=== PATIENT | female | born 1950 | race Caucasian/White ===

== ENCOUNTER 2021-06-18 12:57 | Outpatient (CLI) | payer MEDICARE, SELFPAY | END 2021-06-18 12:58 | disposition home or self-care (01) | LOC: ANHAUDIO 13:00 | PROVIDERS: PCP Internal Medicine; Visit Provider Otolaryngology | DX: H90.3 Sensorineural hearing loss, bilateral (principal) | CPT/HCPCS: 92557; 92567 ==

== ENCOUNTER 2024-06-16 10:59 | Emergency (ER) | payer MEDICARE, SELFPAY ==
[2024-06-16] VITALS (31 sets, daily range): BP systolic 115–135; BP diastolic 55–71; PULSE 68–84; RESP 12–26; TEMP 36.5; O2SAT 92–100
--- NOTE | ~2024-06-16 | XR_ITS ---
CHEST RADIOGRAPH, PA AND LATERAL CLINICAL HISTORY: ANTERIOR CP, HX OF COPD, QUIT SMOKING 2010 . COMPARISON: None available TECHNIQUE: PA and lateral views of the chest. FINDINGS The cardiomediastinal silhouette is unremarkable. The lungs are clear. Visualized osseous structures and soft tissues are unremarkable. IMPRESSION: No focal infiltrate or effusion. Reviewed, dictated and finalized at location A.
--- NOTE | 2024-06-16 11:00 | ECG_ITS ---
Test Date: 2024-06-16 11:07:20 Measurements Intervals [place] Rate: 78 P: 61 NM: 159 QRS: 93 QRSD: 82 T: 72 QT: 374 QTc: 429 Interpretive Statements SINUS RHYTHM BORDERLINE RIGHT AXIS DEVIATION [QRS AXIS > 90] NONSPECIFIC ST AND T WAVE ABNORMALITY No previous ECG available for comparison Electronically Signed On 06-16-2024 13:52:41 CDT by Robin Cedeno M.D.
[2024-06-16] MEDS: ASPIRIN 81 MG CHEWABLE TABLET 324 MG PO (11:41)
[2024-06-16 11:48] LABS: Basophils Absolute Auto 0.1 K/mm3 (0.0-0.1); Basophils Percent Auto 0.7 % (0.2-1.2); Eosinophils Absolute Auto 0.4 K/mm3 (0-0.3); Hematocrit 38.5 % (37.0-47.0); Hemoglobin 12.9 g/dL (12.0-15.0); Immature Granulocyte Absolute 0.02 K/mm3 (0.00-0.031); Immature Granulocyte Percent A 0.3 % (0-0.5); Lymphocytes Percent Auto 17.7 % (18.3-44.2); Mean Corpuscular HGB Conc 33.5 g/dl (32-36); Mean Corpuscular Hemoglobin 30.9 pg (26-34); Mean Corpuscular Volume 92.3 fl (80-100); Mean Platelet Volume 9.3 fl (7.4-10.4); Monocytes Absolute Auto 0.3 K/mm3 (0.1-0.6); Monocytes Percent Auto 4.6 % (2.6-8.5); Neutrophils Absolute Auto 5.3 K/mm3 (1.3-6.7); Neutrophils Percent Auto 71.7 % (45.5-73.1); Platelet Count Result 301 k/mm3 (150-375); Red Blood Count 4.17 M/mm3 (4.2-5.4); Red Cell Distribution Width 13.1 % (11.5-14.5); White Blood Count 7.3 K/mm3 (4.5-10.0)
[2024-06-16 12:10] LABS: INR 0.9
[2024-06-16 12:11] LABS: Partial Thromboplastin Time 26.3 Seconds (22.3-36.8)
--- OUTSIDE RECORDS SUMMARY | 2024-06-16 12:36 | XMS_ITS | Encounter Summary ---
Author Organization [facility] Address [address] [place] [id number] Care Team Providers Care Director Workers Compensation Name Role Phone Bekah West [facility] Primary Care Provid er Encounter Details Date Type Department Care Team (Latest Contact Info) Description 06/10/2024 Scan [facility] Scanned, Doc Med Group Social History Tobacco Use Types Packs/Day Years Used Date Smoking Tobacco: Former Cigarettes 1 40 [id number] Smokeless Tobacco: Never Comments:na Alcohol Use Standard Drinks/Week Comments Never 0 (1 standard drink = 0.6 oz pur e alcohol) B1300 Health Literacy Answer Date Recor ded How often do you need to hav e someone help you when you read instructions, pamphlets, or other written material from your doctor or pharmacy? Never 05/26/2024 [facility] Utilities Answer Date Recorded In the past 12 months has [facility] [employer], gas, oil, or water [place] threatened to shut off services in your home? No 05/26/2024 Humiliation, Afraid, Rape, and Kick questionnair e Answer Date Recorded Within the last year, have y ou been afraid of your partner or ex-partner? No 05/26/2024 Within the last year, have y ou been humiliated or emotionally abused in other ways by your partner or ex-partner? No Within the last year, have y ou been kicked, hit, slapped, or otherwise physically hurt by your partner or ex-partner? No 05/26/2024 Within the last year, have y ou been raped or forced to have any kind of sexual activity by your partner or ex-partner? No 05/26/2024 Social Connection and Isolation Panel [NHANES] A nswer Date Recorded In a typical week, how many times do you talk on the phone with family, friends, or neighbors? Once a week 05/26/19 How often do you get togethe r with friends or relatives? Once a week 05/26/2024 How often do you attend chur or worship services? 1 to 4 times per year 05/26/2024 Do you belong to any clubs o r organizations such as mandaeism groups, unions, fraternal or athletic groups, or school groups? No 05/26/2024 How often do you attend meet ings of the clubs or organizations you belong to? 1 to 4 times per year 05/26/2024 Are you , , di vorced, , never , or living with a partner? Patient declined 05/26/2024 AUDIT-C Answer Date Recorded Q1: How often do you have a drink containing alc ohol? Monthly or less 05/26/2024 Q2: How many drinks containi ng alcohol do you have on a typical day when you are drinking? 1 or 2 05/26/2024 Q3: How often do you have si x or more drinks on one occasion? Never 05/26/2024 Overall Financial Resource Strain (CARDIA) Answe r Date Recorded How hard is it for you to pa y for the very basics like food, housing, medical care, and heating? Not hard at all 05/26/2024 PHQ-2 Answer Date Recorded Patient Health Questionnaire-2 Score 0 06/10/2024 [facility] - Occupational Stress Questionnaire Answer Date Recorded Do you feel stress - tense, restless, nervous, or anxious, or unable to sleep at night because your mind is troubled all the time - these days? Only a little 05/26/2024 Exercise Vital Sign Answer Date Recorde d On average, how many days pe r week do you engage in moderate to strenuous exercise (like a brisk walk)? 0 days 05/26/2024 On average, how many minutes do you engage in exercise at this level? 0 min 05/26/2024 Hunger Vital Sign Answer Date Recorded Within the past 12 months, y ou worried that your food would run out before you got the money to buy more. Never true 05/26/19 25 Within the past 12 months, t he food you bought just didn't last and you didn't have money to get more. Never true 05/26/2024 PRAPARE - Transportation Answer Date Re corded In the past 12 months, has l ack of transportation kept you from medical appointments or from getting medications? No 05/08 In the past 12 months, has l ack of transportation kept you from meetings, work, or from getting things needed for daily living? No 05/26/2024 Housing Stability Vital Sign Answer Finesse e Recorded In the last 12 months, was t here a time when you were not able to pay the mortgage or rent on time? No 07/09/2022 In the last 12 months, how many places have you lived? 1 07/09/2022 In the last 12 months, was t here a time when you did not have a steady place to sleep or slept in a half-way (including now)? No 07/09/2022 Housing Stability Vital Sign Answer Finesse e Recorded In the last 12 months, was t here a time when you were not able to pay the mortgage or rent on time? No 05/26/2024 In the past 12 months, how m any times have you moved where you were living? 0 05/26/2024 At any time in the past 12 m [facility], were you homeless or living in a half-way (including now)? No 05/26/2024 Comments No Sex and Gender Information Value Date Recorded Sex Assigned at Female 07/01/2022 7:45 PM CDT Legal Sex Female 8:13 PM CDT Gender Identity Female 07/01/2022 7:45 PM CDT Sexual Orientation Straight 07/01/2022 7: 45 PM CDT documented as of this encounter Functional Status * Are you deaf or do you have serious difficulty hearing Answer Date of Assessment Author Status No 05/26/2024 2:39 PM Maynor Bhakta RN Active * Are you blind or do you have serious difficulty seeing, even when wearing glasses? Answer Date of Assessment Author Status No 05/26/2024 2:39 PM Maynor Bhakta RN Active * Do you have serious difficulty walking or climbing stairs? Answer Date of Assessment Author Status No 05/26/2024 2:39 PM CULINARY INTERN Maynor Chu RN Active * Do you have difficulty dressing or bathing? Answer Date of Assessment Author Status No 05/26/2024 2:39 PM Maynor Bhakta RN Active * Because of a physical, mental, or emotional condition, do you have difficulty doing errands alone such as visiting a doctor's office or shopping? Answer Date of Assessment Author Status No 05/26/2024 2:39 PM Maynor Bhakta RN Active documented as of this encounter Mental Status * Because of a physical, mental, or emotional condition, do you have serious difficulty concentrating, remembering, or making decisions? Answer Entry Date Author Status No 05/26/2024 2:39 PM CULINARY INTERN Maynor Chu RN Active documented in this encounter Plan of Treatment Upcoming Encounters Date Type Department Care Team (Late st Contact Info) Description 08/03/2024 1:00 PM CDT Office Visit [facility] [address] [phone] Chris Kilgore MD [address] [place] [id number] 04/26/2025 11:30 AM CULINARY INTERN Appointment [facility] Radiation Oncology [address] [place] [phone] Joseph Liz MD [address] [place] [address] [place] [phone] documented as of this encounter Goals Goal Patient Goal Type Associated Problems Recent Progress Patient-Stated? Author Patient will return to prior living situation and remain independent in ADLs upon discharge from hospital Lifestyle No Cheri Cody RN documented as of this encounter Visit Diagnoses Not on filedocumented in this encounter Additional Health Concerns Assessment Noted Time PHQ-9 Depression Total Score: 2 06/03/19 23 10:09 AM CULINARY INTERN documented as of this encounter Care Teams Director Workers Compensation Relationship Specialty Start Date End Date Bekah West FNP- [address] [place] [address] PCP - General Nurse Practitioner Family 05/07/23 documented as of this encounter
--- OUTSIDE RECORDS SUMMARY | 2024-06-16 12:36 | XMS_ITS | Clinical Summary ---
Author Organization [facility] Address [address], [place] [address] [place] [address] Phone Care Team Providers Care Life Sciences Teacher Name Role Phone Chris Kilgore MD Primary Care Provider [phone] Kwasi Appiah MD Unavailable Agustin Brody MD Unavailable [phone] Allergies No known active allergies Medications ANORO ELLIPTA 62.5-25 MCG/INH AEROSOL POWDER, BREATH ACTIVATED TAKE 1 PUFF BY MOUTH EVERY DAY 3 Each 3 0 Active ammonium lactate (LAC-HYDRIN) 12 % Lotion Apply. 2 Active FLUoxetine (PROzac) 20 MG Capsule Take 20 mg by mouth daily. 2 Active albuterol 108 (90 Base) MCG/ACT Aerosol Solution TAKE 1-2 PUFFS BY INHALATION EVERY 4 HOURS NEEDED FOR WHEEZING. 8.5 g 1 3 Active diclofenac (VOLTAREN) 75 MG Tablet Delayed Response Take 75 mg by mouth. 4 Active Active Problems Problem Noted Date Diagnosed Date Elevated brain natriuretic peptide (BNP) level 0 09/22/2020 Overview (12/12/2020): Last Assessment & Plan: She was found to have an elevated BNP and her emergency room visit. She does not exhibit any signs or symptoms of heart failure. This may be in relation to her COPD and she likely has some component of pulmonary hypertension. She declined up with the pain. Atherosclerosis 09/22/2020 Overview (12/12/2020): Last Assessment & Plan: I have personally reviewed her CT angiogram of the chest from September 20, 2020 that shows evidence of atherosclerosis in the aorta. I recommend that we continue to monitor her lipids and she may require statin therapy in the future. Currently, we do not have a lipid profile for her. Chest pain in adult 09/22/2020 Overview (12/12/2020): Last Assessment & Plan: Given that her symptoms of chest pain were one-time episode, she would prefer to watch her symptoms. I explained to her that she has atherosclerosis. I discussed stress testing with her and she declined at this time. We will continue to monitor symptoms and if she has recurrence I would recommend stress testing. 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 13 Encounters Date Type Department Care Team Description 05/11/2024 Telephone [facility] [address] [phone] Agustin Brody MD Canopy Call 05/10/2024 10:00 AM PLATE AND WELD INSPECTOR Clinical Support [facility] [address] [phone] Nurse, Yanely Mosley 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) 05/10/2024 9:45 AM PLATE AND WELD INSPECTOR Office Visit [facility] [address] [phone] Agustin Brody MD 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) (Primary Dx); Chronic obstructive pulmonary disease, unspecified COPD type (HCC) 05/10/2024 Telephone [facility] [address] [phone] Agustin Brody MD Canopy Call / OV questions 05/10/2024 Travel 04/13/2024 10:00 AM PLATE AND WELD INSPECTOR Ancillary Procedure [facility] [address] [phone] 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) 04/13/2024 Telephone [facility] [address] [phone] Joseph Liz MD 04/13/2024 Travel from Last 3 Months Immunizations Immunization Administration Dates Next Due Covid-19, Mrna, Lnp-s, Pf, 30 Mcg/0.3 Ml Dose (P fizer) 07/01/2020,06/06/2020 PUR ZOSTAVAX 11/30/2012 Zoster Vaccine, live 11/30/2012 Family History Medical History Relation Name Comments Cancer Brother 1 esophageal Stroke Brother 2 Cancer Father Breast Cancer Maternal Aunt Diabetes Maternal Grandmother Alzheimer's Disease Mother Cancer Sister 1 Alcohol Abuse Sister 2 Ovarian Cancer Neg Hx Relation Name Status Comments Brother 1 esphogeal Brother 2 Brother 3 Alive Brother 4 Alive Brother 5 Alive Brother 6 Alive Brother 7 Alive Father Maternal Aunt Maternal Grandfather Maternal Grandmother Mother Paternal Grandfather Paternal Grandmother Sister 1 lung Sister 2 Alive Sister 3 Alive Sister 4 Alive Sister 5 Alive Sister 6 Alive Social History Tobacco Use Types Packs/Day Years Used Date Smoking Tobacco: Former Cigarettes 1 44 1 966 - 2010 Smokeless Tobacco: Never Tobacco Cessation:Counseling Given: Not Answered Comments:currently using e cigarettes 12/10/2016. 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 Alcohol Use Standard Drinks/Week Comments Not Currently 0 (1 standard drink = 0.6 oz pur e alcohol) PHQ-2 Answer Date Recorded Total Score - Questions 1-9 0 10/06 Sexually Active Control Partners Comments Not Currently Comments No Sex and Gender Information Value Date Recorded Sex Assigned at Not on file Legal Sex Female 4:03 AM PLATE AND WELD INSPECTOR Gender Identity Not on file Sexual Orientation Not on file Occupation Industry Job Start Date Job End Date retired Not on file Not on file Not on file Last Filed Vital Signs Vital Sign Reading Time Taken Comments Blood Pressure 116/84 05/10/2024 10:06 AM PLATE AND WELD INSPECTOR Pulse 86 05/10/2024 10:06 AM PLATE AND WELD INSPECTOR Temperature 36.6 C (97.8 F) 05/10/2024 10:06 AM PLATE AND WELD INSPECTOR Respiratory Rate 18 05/10/2024 10:06 AM PLATE AND WELD INSPECTOR Oxygen Saturation 96% 05/10/2024 10:06 AM PLATE AND WELD INSPECTOR Inhaled Oxygen Concentration - - Weight 79.1 kg (174 lb 6.4 oz) 05/10/2024 10:06 AM PLATE AND WELD INSPECTOR Height 157.5 cm (5' 2 ) 05/10/2024 10:06 AM PLATE AND WELD INSPECTOR Body Mass Index 31.9 05/10/2024 10:06 AM PLATE AND WELD INSPECTOR Plan of Treatment Upcoming Encounters Date Type Department Care Team (Late st Contact Info) Description 07/19/2024 10:00 AM CDT Ancillary Procedure [facility] [address] [phone] 07/19/2024 10:30 AM CDT Office [facility] [address] [phone] Agustin Brody MD [address] [place] [phone] 04/26/2025 10:00 AM PLATE AND WELD INSPECTOR Ancillary Procedure [facility] [address] [phone] Health Maintenance Due Date Last Done Comments DEXA Bone Density 1950 TdaP Immunization 1950 Pneumococcal Immunization (50+ years) (1 of 2 - PCV) 08/29/1971 Colonoscopy 1997 Colorectal Cancer Screening 1997 Cologuard 2002 Immunochemical Fecal Occult Blood 2002 Respiratory Syncytial Virus (RSV) Immunization (Adult) (1 - Risk 60-74 years 1-dose series) 2012 Zoster Immunization (1 of 2) 01/25/2013 11/30/2012 Mammogram 06/17/2019 06/16/2018, 06/05, 06/14/2016, Additional history exists Influenza Immunization (#1) 2023 SARS-COV-2 Immunization ( season) 2023 01/10/2021, 07/01/2020, 06/06/2020 Hepatitis C Virus (HCV) Screening Completed 01/29/2023 Hepatitis B Immunization Aged Out No longer eligible based on patient's age to complete this topic Meningococcal Immunization (ACWY) Aged Out No longer eligible based on patient's age to complete this topic Rotavirus Immunization Aged Out No lo nger eligible based on patient's age to complete this topic Procedures Procedure Name Priority Date/Time Associated Diagnosis Comments CBC WITH AUTO DIFF OH Routine 05/10/2024 9:50 AM PLATE AND WELD INSPECTOR 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) CMP (COMPREHENSIVE METABOLIC PANEL) Routine 05/10/2024 9:50 AM PLATE AND WELD INSPECTOR 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) LACTATE DEHYDROGENASE (LD) Routine 05/10/2024 9:50 AM PLATE AND WELD INSPECTOR 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) CT CHEST W/O CONTRAST Routine 04/13/2024 10:23 AM PLATE AND WELD INSPECTOR 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) MARIA D SCREENING BILATERAL DIGITAL W CAD W COREY Routine 06/16/2018 2:07 PM CDT Screening for breast cancer from Last 3 Months or Most Recently Relevant to Health Maintenance Results * (ABNORMAL) CBC WITH AUTO DIFF [place] (05/10/2024 9:50 AM PLATE AND WELD INSPECTOR) WBC 9.0 4.0 - 10.0 10*3/uL CANCER FASHION SHOW DIRECT[facility] HGB 13.0 11.2 - 15.7 g/dL CANCER FASHION SHOW DIRECTOR [facility] HCT 39.0 34.1 - 44.9 % [facility] FASHION SHOW DIRECT[facility] PLT 270 163 - 369 10*3/uL [facility] FASHION SHOW DIRECT[facility] MPV 9.1(L) 9.4 - 12.4 fL [facility]ION SHOW DIRECT[facility] RBC 4.27 3.93 - 5.22 10*6/uL [facility]ER FASHION SHOW DIRECTOR [facility] MCV 91 79 - 95 fL [facility] FASHION SHOW DIRECT[facility] MCH 30.4 25.6 - 32.2 pg [facility] FASHION SHOW DIRECTOR [facility] MCHC 33.3 32.2 - 36.5 g/dL [facility]ER FASHION SHOW DIRECTOR [facility] RDW 13.2 11.6 - 14.4 % [facility]ION SHOW DIRECT[facility] Neutrophils % 75.9(H) 36.0 - 66.0 % CAN[facility]ER FASHION SHOW DIRECTOR [facility] Lymphocytes % 15.1(L) 19.0 - 40.0 % [facility] FASHION SHOW DIRECT[facility] Monocytes % 5.0 4.1 - 12.1 % CAN[facility]ER FASHION SHOW DIRECTOR [facility] Eosinophils % 3.1 0.0 - 3.5 % CAN[facility]ER FASHION SHOW DIRECTOR [facility] Basophils % 0.6 0.0 - 1.0 % [facility] FASHION SHOW DIRECT[facility] Absolute Neutrophils 6.9(H) 1.4 - 6.6 10*3/uL [facility] FASHION SHOW DIRECTOR [facility] Absolute Lymphocytes 1.4 0.8 - 4.0 10*3/uL [facility]ER FASHION SHOW DIRECTOR [facility] Absolute Monocytes 0.5 0.2 - 1.2 10*3/uL [facility]ER FASHION SHOW DIRECTOR [facility] Absolute Eosinophils 0.3 0.0 - 0.4 10*3/uL CANCER FASHION SHOW DIRECTOR [facility] Absolute Basophils 0.1 0.0 - 0.1 10*3/uL [facility] FASHION SHOW DIRECTOR [facility] 05/10/2024 9:50 AM PLATE AND WELD INSPECTOR us Elfego Vasques MD LAB SEND OUTS Final Result [facility] FASHION SHOW DIRECTOR [facility] [place] [address], * (ABNORMAL) LACTATE DEHYDROGENASE (LD) (05/10/2024 9:50 AM PLATE AND WELD INSPECTOR) LDH 139(L) 140 - 271 U/L [facility] FASHION SHOW DIRECTOR [facility] Blood 05/10/2024 9:50 AM PLATE AND WELD INSPECTOR Narrative [facility]ER FASHION SHOW DIRECTOR [facility] - 05/10/2024 10:47 AM PLATE AND WELD INSPECTOR Release to patient->Immediate Elfego Vasques MD CHEMISTRY ORDERABLES Final R esult CANCER FASHION SHOW DIRECTOR [facility] [place] [address], * (ABNORMAL) CMP (COMPREHENSIVE METABOLIC PANEL) (05/10/2024 9:50 AM PLATE AND WELD INSPECTOR) Glucose 111(H) 70 - 105 mg/dL [facility] Blood Urea Nitrogen 5(L) 7 - 25 mg/dL [facility] Creatinine 0.7 0.6 - 1.2 mg/dL [facility] Sodium 139 136 - 145 mEq/L [facility] Potassium 3.1(L) 3.5 - 5.1 mEq/L [facility] Chloride 102 98 - 107 mEq/L [facility] Bicarbonate 27 21 - 31 mEq/L [facility] Total Bilirubin 0.5 0.3 - 1.0 mg/dL [facility] Alk. Phosphatase 109(H) 34 - 104 U/L [facility] Aspartate Aminotransferase 11(L) 13 - 39 U/L [facility] Alanine Aminotransferase 10 7 - 52 U/L [facility] Total Protein 6.8 6.4 - 8.9 g/dL [facility] Albumin 4.0 3.5 - 5.7 g/dL [facility] Calcium 9.0 8.6 - 10.3 mg/dL [facility] Anion Gap 13.1 7.0 - 15.0 mEq/L [facility] Globulin 2.8 2.0 - 3.5 g/dL [facility] EGFR 92 >60 ml/min/1. 73m2 [facility] FASHION SHOW DIRECTOR [facility] Comment: This eGFR is calculated using 2020 CKD-EPI Creatinine equation without race modifier based on the NKF-ASN task force recommendations Blood 05/10/2024 9:50 AM PLATE AND WELD INSPECTOR Narrative [facility]OW DIRECT[facility] - 05/10/2024 10:47 AM PLATE AND WELD INSPECTOR Release to patient->Immediate IS THE PATIENT REQUIRED TO BE FASTING FOR 8 HOURS?->No us Elfego Vasques MD CHEMISTRY ORDERABLES Final R esult CAN[facility] FASHION SHOW DIRECTOR [facility] [place] [address], * CT CHEST W/O CONTRAST (04/13/2024 10:23 AM PLATE AND WELD INSPECTOR) Anatomical Region Laterality Modality Chest N/A Computed Tomogra phy Narrative 04/13/2024 10:33 AM PLATE AND WELD INSPECTOR EXAMINATION: CT CHEST W/O CONTRAST N/A INDICATIONS: Malignant neoplasm of lower lobe, left bronchus or lung. History of lung cancer. Monitoring assessment. 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 COMPARISON: 11/10/2023 study TECHNIQUE: CT chest without contrast A dose lowering technique was used for this procedure, which may include, but is not limited to, dose reduction technique(s), automated exposure control techniques, use of iterative reconstruction techniques, and ALARA (as low as reasonably achievable) or ALARA/IMAGE Gently techniques. FINDINGS: Cardiovascular: IV contrast not administered. Coronary artery calcifications present. Trace pericardial fluid. Calcific plaquing thoracic aorta. Heterogeneous plaquing obscures the lumen of the origin of the left subclavian artery in particular. Lymphatics: The spleen is not enlarged. Calcified bilateral hilar, superior and middle mediastinal lymph nodes from previous granulomatous process. Pleura: No pleural effusion. Lungs: Emphysematous changes present. Scattered calcified granulomas bilaterally. Small zone of peripheral reticular opacification affecting the posteromedial left upper lobe present with new nidus of nodularity series 2, image 48 measuring about 5 mm. Zone of opacification affecting the left lower lobe superior segment posterior medially has also increased in volume. This appears mostly bandlike on the coronal and sagittal reformatting but with increased volume of its intermediate attenuation component. MSK: Mild thoracic kyphosis with spondylosis. IMPRESSION New small areas of peripheral nodularity posteromedial left lower lobe measuring about 5 mm. Areas of opacification affecting the left lower lobe has also changed compared to 11/10/2023 described above. While findings could reflect treatment related changes, residual-recurrent malignancy not excluded. Consider follow-up PET-CT. Coronary artery calcifications present. 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 Clinical correlation as to potential underlying subclavian steal syndrome recommended. Electronically signed by: Tian Bowling Date of Signature: 04/13/2024 10:33:21 Procedure Note Tian Bowling MD - 04/13/2024 EXAMINATION: CT CHEST W/O CONTRAST N/A INDICATIONS: Malignant neoplasm of lower lobe, left bronchus or lung. History of lungcancer. Monitoring assessment. History of left upper lobe squamous cellcarcinoma July 2020. COMPARISON: 11/10/2023 study TECHNIQUE: CT chest without contrast A dose lowering technique was used for this procedure, which may include,but is not limited to, dose reduction technique(s), automated exposurecontrol techniques, use of iterative reconstruction techniques, and ALARA(as low as reasonably achievable) or ALARA/IMAGE Gently techniques. FINDINGS: Cardiovascular: IV contrast not administered. Coronary arterycalcifications present. Trace pericardial fluid. Calcific plaquingthoracic aorta. Heterogeneous plaquing obscures the lumen of the originof the left subclavian artery in particular. Lymphatics: The spleen is not enlarged. Calcified bilateral hilar,superior and middle mediastinal lymph nodes from previous granulomatousprocess. Pleura: No pleural effusion. Lungs: Emphysematous changes present. Scattered calcified granulomasbilaterally. Small zone of peripheral reticular opacification affectingthe posteromedial left upper lobe present with new nidus of nodularityseries 2, image 48 measuring about 5 mm. Zone of opacification affectingthe left lower lobe superior segment posterior medially has also increasedin volume. This appears mostly bandlike on the coronal and sagittalreformatting but with increased volume of its intermediate attenuationcomponent. MSK: Mild thoracic kyphosis with spondylosis. IMPRESSION New small areas of peripheral nodularity posteromedial left lower lobemeasuring about 5 mm. Areas of opacification affecting the left lowerlobe has also changed compared to 11/10/2023 described above. Whilefindings could reflect treatment related changes, residual-recurrentmalignancy not excluded. Consider follow-up PET-CT. Coronary artery calcifications present. Severe stenosis at the origin ofthe left subclavian artery is also present. Clinical correlation as topotential underlying subclavian steal syndrome recommended. Electronically signed by: Tian Bowling Date of Signature: 04/13/2024 10:33:21 Joseph Liz MD IMG CT ORDERABLES Final Result * MARIA D SCREENING BILATERAL DIGITAL W CAD W COREY (06/16/2018 2:07 PM CDT) Anatomical Region Laterality Modality breast Bilateral Mammography 06/16/2018 2:07 PM CDT Impressions 06/16/2018 2:57 PM CDT IMPRESSION: BI-RADS Category: 2. BENIGN FINDINGS. RECOMMENDATION: Screening mammography of both breasts is recommended in 1 year, or as clinically indicated. BI-RADS Category Definitions: (0) Incomplete Assessment, further imaging required (1)-Negative (2)-Benign Findings (3)-Probably Benign Findings (4)- Suspicious Abnormality (5)- Highly Suggestive of Malignancy (6)- Documented Breast Cancer A BENIGN MAMMOGRAPHIC REPORT DOES NOT PRECLUDE THE CLOSE FOLLOWUP AND/OR BIOPSY OF ANY CLINICALLY SUSPECTED LESIONS. THE PATIENT WILL BE NOTIFIED OF HER RESULTS BY MAIL PER FDA AND SA REQUIREMENTS. Narrative 06/16/2018 2:57 PM CDT BILATERAL DIGITAL SCREENING MAMMOGRAPHY w/ CAD with corey synthesis images along with generated 2-D images that are reviewed FINDINGS: The study was reviewed with the assistance of computer aided detection (CAD). The parenchymal pattern has scattered fibroglandular density. No suspicious masses, no secondary signs of malignancy, and no significant interval changes compared to previous mammograms are identified. Procedure Note David Vidales MD - 06/16/2018 BILATERAL DIGITAL SCREENING MAMMOGRAPHY w/ CAD with corey synthesis imagesalong with generated 2-D images that are reviewed FINDINGS: The study was reviewed with the assistance of computer aideddetection (CAD). The parenchymal pattern has scattered fibroglandulardensity. No suspicious masses, no secondary signs of malignancy, and nosignificant interval changes compared to previous mammograms areidentified. IMPRESSION: BI-RADS Category: 2. BENIGN FINDINGS. RECOMMENDATION: Screening mammography of both breasts is recommended in 1year, or as clinically indicated. BI-RADS Category Definitions: (0) Incomplete Assessment, further imaging required (1)-Negative (2)-Benign Findings (3)-Probably Benign Findings (4)- Suspicious Abnormality (5)- Highly Suggestive of Malignancy (6)- Documented Breast Cancer A BENIGN MAMMOGRAPHIC REPORT DOES NOT PRECLUDE THE CLOSE FOLLOWUP AND/ORBIOPSY OF ANY CLINICALLY SUSPECTED LESIONS. THE PATIENT WILL BE NOTIFIEDOF HER RESULTS BY MAIL PER FDA AND SA REQUIREMENTS. [place] DEVELOPER EVANGELIST, PAN TANK WORKER IMG MAMMO ORDERABLES Final Result from Last 3 Months or Most Recently Relevant to Health Maintenance Insurance [facility] MEDICARE C [employer] Care Teams Life Sciences Teacher Relationship Specialty Start Date End Date Chris Kilgore MD [address] [place] [address] [place] [address] PCP - General Internal Medicine 07/27/20 Kwasi Appiah MD [address] [place] [address] Consulting Physician Pulmonary Disease 12/10/16 Agustin Brody MD [address] [place] [address] Consulting Physician Oncology 07/27/20
--- OUTSIDE RECORDS SUMMARY | 2024-06-16 12:36 | XMS_ITS | Encounter Summary ---
Author Organization [facility] Address [address] [place] [address] Care Team Providers Care Vessel Slag Worker Name Role Phone Unavailable Primary Care Provider Unavailabl e Encounter Details Date Type Department Care Team (Late st Contact Info) Description 08/03/2004 Outpatient Historical [facility] Internal Medicine [address] [place] [address] Markell Nguyễn MD [address] [facility] [address] [place] [address] Social History Tobacco Use Types Packs/Day Years Used Date Smoking Tobacco: Never Assessed Comments Unknown Sex and Gender Information Value Date Recorded Sex Assigned at Not on file Legal Sex Female 4:08 AM CONSULTING PRACTICE DIRECTOR Gender Identity Not on file Sexual Orientation Not on file documented as of this encounter Plan of Treatment Not on file documented as of this encounter Visit Diagnoses Not on filedocumented in this encounter
--- OUTSIDE RECORDS SUMMARY | 2024-06-16 12:36 | XMS_ITS ---
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 Driving Name Role Phone [facility] Primary Care Provid er Active Problems Problem Noted Date Diagnosed Date Acute CVA (cerebrovascular accident) ([facility] S/HCC) 05/26/2024 Chest pain 08/23/2023 COPD exacerbation ([facility]) 07/26/2023 COPD with acute exacerbation ([facility]/HCC) 0 07/25/2023 Overweight (BMI 25.0-29.9) 06/03/2022 At low risk for fall 06/03/2022 Primary osteoarthritis of left hip 09/23/2021 Assessment & Plan (09/23/2021 2:32 PM CDT): We discussed the risks, benefits and alternatives. Definitive treatment being total hip arthroplasty. Conservative treatment consisting of weight loss, nonsteroidal anti-inflammatories, possibility of steroid injection, formal physical therapy. After going over the risks, benefits and alternatives all questions were answered. Begin diclofenac 75 mg twice a day. Begin physician directed exercises for the hip and the shoulder. Follow-up in 6 weeks if needed Impingement syndrome of left shoulder 09/23/2021 Assessment & Plan (09/23/2021 2:33 PM CDT): Again, we discussed the risks, benefits and alternatives. Patient states that she is not a pill taker but will try diclofenac 75 mg twice a day. Physician directed exercises are given. She like to avoid a steroid shot at this time. Follow-up in 6 weeks. BMI 30.0-30.9,adult 09/23/2021 Assessment & Plan (09/23/2021 2:34 PM CDT): We discussed the adverse effects of weight on osteoarthritis of the knee. For every 1 pound loss, 4 to 6 pounds of stress is relieved from the knee, slightly less at the hip and slightly more at the ankle. We discussed low carbohydrate diet to help with weight loss. 80% of weight loss is through diet. Atherosclerosis 09/22/2020 Assessment & Plan (09/22/2020 2:59 PM CDT): I have personally reviewed her CT angiogram of the chest from September 20, 2020 that shows evidence of atherosclerosis in the aorta. I recommend that we continue to monitor her lipids and she may require statin therapy in the future. Currently, we do not have a lipid profile for her. Elevated brain natriuretic peptide (BNP) level 0 09/22/2020 Assessment & Plan (09/22/2020 3:00 PM CDT): She was found to have an elevated BNP and her emergency room visit. She does not exhibit any signs or symptoms of heart failure. This may be in relation to her COPD and she likely has some component of pulmonary hypertension. She declined up with the pain. 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 ([facility]) 08/17/2020 Malignant neoplasm of left l cathy, unspecified part of lung ([facility]) 08/16/2020 Lung nodule 07/18/2020 Cigarette nicotine dependence in remission 01/17 COPD (chronic obstructive pu lmonary disease) ([facility]) 09/08/2012 Current Oncology Plans No current plan information found. Past Plans No past plan information found. Radiation Treatments * Plan Last Treated On Elapsed Days Fractions Treated Prescribed Fraction Dose Prescribed Total Dose LT Lung 09/15/2020 5 of 5 Reference Point Last Treated On Elapsed Days Session Dose Total Dose PTVp 09/15/2020 50 Treatment Summaries Malignant neoplasm of left lung, unspecified part of lung ([facility])* Images from the original note were not included. Survivorship Care Plan Patient Name Lesly Marquez Date of 1950 Plan Completed By Marah RAWLS on 11/03/20 Care Team Medical Oncologist Dr. Brody [phone] Kilgore [phone] Alonso [phone] Primary Care Physician HUMBLE BURGOS MD [phone] Bekah West [phone] Nurse Navigator Marah RAWLS [phone] Diagnosis Malignant neoplasm of left lung, unspecified part of lung (CMS/HCC) Age at diagnosis 69-year-old Pertinent past medical history Past Medical History: Diagnosis Date Colorectal polyp detected on colonoscopy Unsure of date, but knows she had one with a polyp removal COPD (chronic obstructive pulmonary disease) (CMS/HCC) Influenza vaccine refused 08/23/2019 Per patient Lung cancer (CMS/HCC) 07/18/[address] Lung Screening 02/02/2020 CT chest 07/14/2020 PET Scan 07/25/2020 MRI Brain 08/04/2020 Surgery Needle Biopsy of Left Lung on 07/26/2020 Family History Family History Problem Relation Name Age of Onset Alzheimers Mother Dementia Mother Cancer Father Unsure of this. Heart Attack Father 40 Genetic Testing N/A Chemotherapy and Other Treatments Chemotherapy: Cisplatin and Etoposide Cycles: 4 Treatment on clinical trial? No Pre-operative chemotherapy administered? No Radiation Treatment Site: Left Lung Total Doses:5000 cGy (SBRT) Treatment Dates: 09/06/20-09/15/20 Ongoing Toxicities and Side Effects Patient tolerated radiation therapy well. Follow-Up Care Small cell lung cancer For a period of time, continue all standard non-cancer related health care with your primary care provider. Your oncology team will monitor your cancer related health and needs even after you have completed treatment. Usually this is done with physical exams and imaging if appropriate. What happens after treatment for small cell lung cancer? For some people with lung cancer, treatment may remove or destroy the cancer. Completing treatment can be both stressful and exciting. You may be relieved to finish treatment, but find it hard not toworry about cancer growing or coming back. (When cancer comes back after treatment, it is called recurrence.) This is a very common concern in people who have had cancer. It may take a while before your fears lessen. But it may help to know that many cancer survivors have learned to live with this uncertainty and are living full lives. For some other people, the lung cancer may never go away completely. You may get regular treatments with chemotherapy, radiation therapy, or other therapies to help keep the cancer in check. Learning to live with cancer as more of achronic disease can be difficult and very stressful. It has its own type of uncertainty. Follow-Up Care During and after treatment, your doctors will want to watch you closely. It is very important you go to all follow-up appointments. During these visits, your doctors will ask about symptoms, do physical exams, and may order blood tests or imaging tests such as CT scans or x-rays. In people with no signs of cancer remaining, many doctors recommend follow-up visits (which may include CT scans and blood tests) about every 3 months for the first couple of years after treatment, about every 6 months for the next several years, then at least yearly after 5 years. Some doctors mayadvise different follow-up schedules. Follow-up is needed to look for signs of cancer recurrence or spread, as well as possible side effects of certain treatments. This is a good time for you to talk to your cancer care team about any changes or problems you notice and to discuss any questions or concerns you might have. Each type of treatment for lung cancer can have side effects. Some may last for a few weeks to several months, but others can last the rest of your life. Be sure to report any new symptoms right away, and tell your cancer care team about any symptoms or side effects that bother you so they can helpyou manage them. It is important to maintain your health insurance. Tests and doctor visits cost a lot, and even though no one wants to think of their cancer coming back, this could happen. If cancer does recur, treatment will depend on where the cancer is and what treatments you???ve hadbefore. Radiation therapy, chemotherapy, or other types of treatment might be helpful. According to the [place] [employer], about 20 percent of cancer diagnoses are due to factors that are within your control such as nutrition, physical activity, smoking and alcohol use. We have made a commitment to your continued wellness as you transition into survivorship! Nutritional health and maintaining a healthy weight are a few of the many important parts of your recovery. You have already received tools to encourage healthy habits from our staff, and we want youto feel confident with your wellness decisions in the future. Body Mass Index or BMI is one way to determine if a person???s weight places them at risk for disease such as diabetes, heart disease and cancer. Below 18.5-underweight 18.5-24.9-normal or healthy weight 25-29.9-overweight 30-39.9-obese 40 and above-morbidly obese Your Body mass index is 29.45 kg/m??. Seeing a new doctor At some point after your cancer diagnosis and treatment, you may find yourself seeing a new doctor who does not know about your medical history. It is important that you be able to give your new doctor the details of your diagnosis and treatment. Gathering these details soon after treatment may be easier than trying to get them at some point in the future. Make sure you have the following information handy: A copy of your pathology report(s) from any biopsies or surgeries If you had surgery, a copy of your operative report(s) If you stayed in the hospital, a copy of the discharge summary that doctors prepare when patients are sent home If you had radiation therapy, a copy of the treatment summary If you had chemotherapy or targeted therapies, a list of the drugs, drug doses, and when you took them Copies of your x-rays, CT scans, and other imaging tests (these can often be stored digitally on a DVD, etc.) Last Medical Review: 01/31/2016 Last Revised: 01/30/2016 Summary of the [place] [employer] Guidelines on Nutrition and Physical Activity Achieve and maintain a healthy weight throughout life. Be as lean as possible throughout life without being underweight. Avoid excess weight gain at all ages. For those who are overweight or obese, losing even a small amount of weight has health benefits and is a good place to start. Get regular physical activity and limit intake of high-calorie foods and drinks as keys to help maintain a healthy weight. Be physically active. Get at least 150 minutes of moderate intensity or 75 minutes of vigorous intensity activity each week (or a combination of these), preferably spread throughout the week. Limit sedentary behavior such as sitting, lying down, watching TV, and other forms of screen-based entertainment. Doing some physical activity above usual activities, no matter what one???s level of activity, can have many health benefits. Eat a healthy diet, with an emphasis on plant foods. Choose foods and drinks in amounts that help you get to and maintain a healthy weight Limit how much processed meat and red meat you eat. Eat at least 2?? cups of vegetables and fruits each day. Choose whole grains instead of refined grain products. If you drink alcohol, limit your intake. Drink no more than 1 drink per day for women or 2 per day for men. Other concerns and resources If you have experienced issues with emotional or mental health, parenting, work/employment, financial issues, and/or insurance, there may be local and national resources available to assist you. Please discuss this with your oncology team and/or primary care provider for additional information. Below is a general list of resources: Other Concerns and Resources If you are experiencing issues with emotional or mental health, parenting, work/employment, finances, and/or insurance, there may be local and national resources available to assist you. Please discuss this with your oncology team and/or primary care provider for additional information. Below is a general list of resources: Cancer Support Resources at [facility] https://www.[facility].org/StElizabeths/Services/Cancer-Care/Cancer-Center [facility] offers services for lifestyle management for mind-body health. Services range from yoga, individual and group smoking cessation counseling to mind/body skills instruction and mindfulness classes. Call for more information. Clinical Trials are available for adults through [employer], a national cooperative group. Call for more information. Dietary Services are available from registered dietitians who can perform nutritional assessments and give advice on dietary problems. Call for more information. Home Health Services are available after a hospital admission. These individuals can provide comfort in the home setting along with support and education. Call for more information. Inpatient Political Science Faculty Member & Case Management Services Inpatient oncology social workers can help with home services, placement of patients, transportation, crisis intervention and communityresources. Care coordination for patients is done through this service, especially in outlying areas. Call for more information. Nurse Navigator This individual helps guide cancer patients during this challenging and difficult time. She identifies needs and coordinates services of care and designs individualized survivorship care plans after treatment is complete. Call ext [phone] or ext [phone] for more information. Occupational, Speech and Physical Therapy Therapy services are helpful for cancer patients from theinitial diagnosis, through survivorship or the end stages of care. Cancer and its treatment sometimes improves physical abilities but not functional outcomes. Therapy interventions used are holistic and comprehensive. Varying services are offered at seven [facility] outpatient clinics in [facility]. Call for more information. Palliative Care, Pain Management and Hospice Palliative Care can help patients and their significant others understand health care decisions to help guide a plan of care that is in line with their personal beliefs and values. The team also offers a comprehensive assessment of pain and other symptoms and can work with the patient's primary health care provider to improve quality of life. Call for more information. Spiritual Care Chaplains can provide spiritual comfort for the mind, body and spirit. Call for more information. Radiation Therapy and [facility] Radiation Therapy offers state of the art radiation for cancer patients. The [facility] offers an outpatient area for chemotherapy, blood infusions, dressing changes and antibiotics. Call for more information. [facility] W[facility] The W[facility] Center heals chronic, non-healing wounds. Call for more information. Wound, Ostomy, Continence Services Services range from wound care, ostomy appliance teaching and continence service for any patient needing these services. Call for more information. Resources for Cancer Support [facility] provides care for those who cannot afford to pay through its Maddie Care Program. More information is available at https://www.[facility].org/StElizabeths/Patients-Guests/Qetimzh-Rwfluxymf-Ibskinyj [employer] [employer] provides financial assistance, to those who qualify, regardless of whether aperson is insured. More information is available at www. [facility].org/Public/FinancialAssistance.aspx. [place] Department of Public Health protects the state's residents and visitors through the prevention and control of disease and injury. Website: https://www.[facility].[place].gov/topics-services/hgiegsss-osa-haioyxtfkr/cancer [place] [employer] is a national nonprofit organization with programs and services provided through local [place] [employer] offices, as well as its Clinical Navigation program based at [facility] [place] at [facility]. Websites: www.cancer.org and www.[facility]/cancer/navigator. html. Government Assistance Programs There are several federal and state programs that provide financial assistance to individuals and families. This assistance, known as entitlements, are primarily set up for low-income households, theelderly and the disabled. Each entitlement has eligibility requirements. There are also programs administered through state governments that can help with health-care related needs. Government Assistance Programs include: U.S. Department of Health & Human Services Information on public assistance and food stamps. Check phonebook for your local office. www.hhs.gov. U.S. Administration on Aging Benefits for older adults. 338.616.2472 www.eldercare.gov ([employer] Picking Machine Operator Helper finds resources in your community). Social Security Administration 956-653-8284 www.ssa.gov Centers for Medicare & Medicaid Services 354-386-7511 www.cms.gov National Cancer [place] www.cancer.gov Pharmaceutical Patient Assistance Programs Programs and services offered differ among drug manufacturers but may include: Help with insurance reimbursement. Referrals to co pay relief programs Help with the application process Discounted or free medications for patients who do not qualify for other assistance Partnership for Prescription Assistance (PPA) 346-4-YRL-NOW (553-007-0358) www.pparx.org Insurance Coverage www.getcovered[place].org To see if the drug company that makes your medication has a patient assistance program, check its web site, ask your doctor or check with the PPA. PPA has a list of pharmaceutical programs and other resources for financial assistance. People with cancer often need assistance with expenses like transportation, home care and director of early childhood education. A number of nonprofit organizations have useful programs or referral information that may be able to help. Cancer Organizations CancerCare 309-765-TASE(8897) www.cancercare.org [place] [employer] 242-GIA-7247 www.cancer.org Leukemia & Lymphoma Society 727-634-5216 www.lls.org Lung Cancer [facility] www.lungcanceralliance.org Lymphoma Research Foundation 687-846-1830 www.lymphoma.org National Marrow Donor Program 861-267-7034 www.marrow.org National Ovarian Cancer Coalition www.ovarian.org Pancreatic Cancer Action Network www.pancan.org Patient Advocate Colorectal Careline 836-504-6621 www.colorectalcareline.org Sarcoma [facility] 002-316-2797 www.sarcomaalliance.org General Organizations [employer]XI www.Link To Media.CÜR Media Community Organizations Check phonebook under social service agencies [place]-based Organizations Includes [employer], [employer], frestyl and others. Check phonebook for listings. [employer] Cancer Foundation (Clinical Trial information and support) www.lazarex.org Leukemia Research Foundation www.leukemia-research.org Bladder Cancer Advocacy Network www.bcan.org Support for People with Oral Head and Neck Cancer (SPOHNC) www.spohnc.org Rose SET. [facility] Breast Cancer Organization 694-692-3830 5.[employer].org/BreastCancer/1877GOKOMEN.html Resolved Problems Problem Noted Date Diagnosed Date Resolved Date COPD exacerbation ([facility]) 07/08/2022 01/21/2023 Sepsis ([facility]) 07/01/2022 Vertigo 06/04/2022 01/21/2023 Chest pain in adult 09/22/2020 01/22/20 Assessment & Plan (09/22/2020 2:58 PM CDT): Given that her symptoms of chest pain were one-time episode, she would prefer to watch her symptoms. I explained to her that she has atherosclerosis. I discussed stress testing with her and she declined at this time. We will continue to monitor symptoms and if she has recurrence I would recommend stress testing. Nicotine vapor product user 01/18/2020 01/21/2023 MOYA (dyspnea on exertion) 01/18/2020 Shingles (herpes zoster) polyneuropathy 09/08/2012 01/21/2023
--- OUTSIDE RECORDS SUMMARY | 2024-06-16 12:36 | XMS_ITS | Clinical Summary ---
Author Organization [facility] Address [facility] [place] [address] Care Team Providers Care Superintendent Tests Name Role Phone [facility] Provid er Allergies No known active allergies Medications albuterol sulfate HFA 108 (90 Base) MCG/ACT inhaler Inhale 2 puffs into the lungs every 6 (six) hours as needed for Wheezing. 18 g 08/01/19 24 Active umeclidinium-vilan terol (ANORO ELLIPTA) 62.5-25 MCG/ACT inhalerIndications :Chronic obstructive pulmonary disease, unspecified COPD type ([facility]) Inhale 1 puff into the lungs daily. 1 each 11 02/03/20 24 Active diazePAM (VALIUM) 5 MG tabletIndications: Vertigo Take 1 tablet (5 mg total) by mouth daily as needed for Anxiety (vertigo/dizz iness). 20 tablet 05/28/19 25 025 Active rosuvastatin (CRESTOR) 20 MG tabletIndications: Mixed hyperlipidemia Take 1 tablet (20 mg total) by mouth nightly at bedtime. 90 tablet 1 06/11/19 25 Active ammonium lactate (LAC-HYDRIN) 12 % lotionIndications: Dry skin dermatitis Apply topically daily as needed for Dry skin. 225 g 1 06/11/19 25 Active diclofenac EC (VOLTAREN) 75 MG tabletIndications: Primary osteoarthritis of left hip Take 1 tablet (75 mg total) by mouth 2 (two) times daily. TAKE NEEDED. Take with food. 180 tablet 1 06/11/19 25 Active benzonatate (TESSALON) 200 MG capsuleIndications :Acute cough Take 1 capsule (200 mg total) by mouth 3 (three) times daily as needed for Cough. 20 capsule 06/11/19 25 025 Active ammonium lactate (LAC-HYDRIN) 12 % lotionIndications: Dry skin dermatitis Apply topically daily as needed for Dry skin. 225 g 1 12/12/19 24 025 Discontinu ed(Reorder ) diclofenac EC (VOLTAREN) 75 MG tabletIndications: Primary osteoarthritis of left hip Take 1 tablet (75 mg total) by mouth 2 (two) times daily. TAKE NEEDED. Take with food. 180 tablet 1 12/17/19 24 025 Discontinu ed(Reorder ) meclizine (ANTIVERT) 25 MG tablet Take 1 tablet (25 mg total) by mouth 2 (two) times daily as needed for Dizziness. 28 tablet 05/27/19 25 025 Active Problems Problem Noted Date Diagnosed Date Acute CVA (cerebrovascular accident) ([facility]) 05/26/2024 Chest pain 08/23/2023 COPD exacerbation ([facility]) 07/26/2023 COPD with acute exacerbation ([facility]) 0 07/25/2023 Overweight (BMI 25.0-29.9) 06/03/2022 At [...] of lowe r lobe of left lung ([facility]) 08/17/2020 Malignant neoplasm of left l cathy, unspecified part of lung ([facility]) 08/16/2020 Lung nodule 07/18/2020 Cigarette nicotine dependence in remission 01/17 COPD (chronic obstructive pu lmonary disease) ([facility]) 09/08/2012 Resolved Problems Problem Noted Date Diagnosed Date Resolved Date COPD exacerbation ([facility]) 07/08/2022 01/21/2023 Sepsis ([facility]) 07/01/2022 Vertigo 06/04/2022 01/21/2023 Chest pain in [...] 01/18/2020 Shingles (herpes zoster) polyneuropathy 09/08/2012 01/21/2023 Encounters Date Type Department Care Team Description 06/10/2024 1:00 PM SYRUP SHED SUPERVISOR Office Visit [address] [phone] Bekah West FNP- Follow Up (6 month /Skin tag removal ) 06/10/2024 Scan SEJENT SRVCS Scanned, [facility] 06/10/2024 Travel 06/03/2024 Patient Outreach [address] [phone] Roz Kurtz MA Pre-visit Gap Closure 05/26/2024 11:52 AM SYRUP SHED SUPERVISOR - 05/27/2024 9:58 AM SYRUP SHED SUPERVISOR Emergency [facility] Med/Surg [address] [place] [address] Jaky Christy MD Harris, Michael, MD Dizziness Discharge Disposition: Home or Self Care (Routine Discharge) 05/26/2024 Travel 05/10/2024 Scan [facility] HE[facility] INFO SRVCS Scanned, [facility] 04/13/2024 9:56 AM SYRUP SHED SUPERVISOR - 04/13/2024 11:59 PM SYRUP SHED SUPERVISOR Hospital Encounter [facility] Radiation Oncology [address] [place] [address] [place] [address] Joseph Duenas MD Follow Up Discharge Disposition: Home or Self Care (Routine Discharge) 04/13/2024 Travel 04/08/2024 1:07 PM SYRUP SHED SUPERVISOR - 04/08/2024 11:59 PM SYRUP SHED SUPERVISOR Hospital Encounter [facility] [place] [address] [place] [address] Joseph Duenas MD Discharge Disposition: Home or Self Care (Routine Discharge) 04/08/2024 Travel from Last 3 Months Immunizations Name Administration Dates Next Due PFIZER COVID-19 (ORIGINAL FO RMULATION, PURPLE CAP) mRNA, LNP-S, PF, 30 MCG/0.3 ML DOSE 01/10/2021,07/01/2020,06/06/2020 Zoster (Zostavax) 10385 Unt/0.65Ml 11/30/2012 Family History Medical History Relation Comments Cancer Father Unsure of this. Heart Attack Father Alzheimers Mother Dementia Mother Relation Status Comments Father Mother Social History Tobacco Use Types Packs/Day Years Used Date Smoking Tobacco: Former Cigarettes 1 40 1 970 - 2009 Smokeless Tobacco: Never Tobacco Cessation:Counseling Given: Yes Comments:na Alcohol Use Standard Drinks/Week Comments Never 0 (1 standard drink = 0.6 oz pur e alcohol) B1300 Health Literacy Answer Date Recor ded How often do you need to hav e someone help you when you read instructions, pamphlets, or other written material from your doctor or pharmacy? Never 05/26/2024 [facility] Utilities Answer Date Recorded In the past 12 months has th e [place], gas, oil, or water [employer] threatened to shut off services in your [...] 05/26/2024 How often do you attend chur ch or spiritism services? 1 to 4 times per year 05/26/2024 Do you belong to any clubs o r organizations such as adventism groups, unions, fraternal or athletic groups, or [...] Recorded Patient Health Questionnaire-2 Score 0 06/10/2024 [facility] Occupational Stress Questionnaire Answer Date Recorded [...] place to sleep or slept in a chcf (including now)? No 07/09/2022 Housing Stability Vital Sign Answer Finesse e Recorded In the last 12 months, was t here a time when you were not able to pay the mortgage or rent on time? No 05/26/2024 In the past 12 months, how m any times have you moved where you were living? 0 05/26/2024 At any time in the past 12 m [facility], were you homeless or living in a chcf (including now)? No 05/26/2024 Comments No Sex and Gender Information Value Date Recorded Sex Assigned at Female 07/01/2022 7:45 PM CDT Legal Sex Female 8:13 PM CDT Gender Identity Female 07/01/2022 7:45 PM CDT Sexual Orientation Straight 07/01/2022 7: 45 PM CDT Last Filed Vital Signs Vital Sign Reading Time Taken Comments Blood Pressure 120/80 06/10/2024 1:04 PM SYRUP SHED SUPERVISOR Pulse 76 06/10/2024 1:04 PM SYRUP SHED SUPERVISOR Temperature 36.1 C (97 F) 06/10/2024 1:04 PM SYRUP SHED SUPERVISOR Respiratory Rate 22 06/10/2024 1:04 PM SYRUP SHED SUPERVISOR Oxygen Saturation 93% 06/10/2024 1:04 PM SYRUP SHED SUPERVISOR Inhaled Oxygen Concentration - - Weight 80.5 kg (177 lb 6.4 oz) 06/10/2024 1:04 P M SYRUP SHED SUPERVISOR Height 157.5 cm (5' 2 ) 06/10/2024 1:04 PM SYRUP SHED SUPERVISOR Body Mass Index 32.45 06/10/2024 1:04 PM SYRUP SHED SUPERVISOR Plan of Treatment Upcoming Encounters Date Type Department Care Team (Late st Contact Info) Description 08/03/2024 1:00 PM CDT Office Visit [facility] Pulmonology Specialty Clinic [facility] [address] [place] [phone] Chris Kilgore MD 3rd [facility] [address] [place] [address] 04/26/2025 11:30 AM SYRUP SHED SUPERVISOR Appointment [facility] Radiation Oncology [address] [facility] [place] [address] Joseph Duenas MD [address] [place] [address] [place] [id number] Health Maintenance Due Date Last Done Comments Colorectal Cancer Screening Colonoscopy (10 Years) 1950 Pneumococcal Vaccine: 65+ Years (1 of 2 - PCV) 1958 DTaP, Tdap and Td Vaccines ( 1 - Tdap) 08/29/1971 RSV Immunization or 60+ Years (1 - Risk 60-74 years 1-dose series) 2012 Zoster Vaccines (2 of 3) 01/25/2013 11/30/2012 Annual Medicare Wellness Visit 2017 Dexa Scan (General) 2017 Mammogram Screening 06/16/2020 06/16/2018, 06/14/2016, 10/12/2013 COVID-19 Vaccine (2023-2 5 season) 2023 01/10/2021, 07/01/2020, 06/06/2020 Influenza Adult (#1) 2024 Hepatitis C Completed 01/29/2023 PHQ-2 (Physician [place]) Completed 06/10/2024 Meningococcal B Vaccine Aged Out No l onger eligible based on patient's age to complete this topic Meningococcal Vaccine Aged Out No carol kerry eligible based on patient's age to complete this topic RSV Immunizations Under 20 Months Aged Out No longer eligible b ased on patient's age to complete this topic Goals Goal Patient Goal Type Associated Problems Recent Progress Patient-Stated? Author Patient will return to prior living situation and remain independent in ADLs upon discharge from hospital Lifestyle No Cheri Cody RN Medical Devices Implanted Type Area Rn Diabetes Device Identifier Shelf Expiration Date Model / Serial / Lot Port Implantable Infusion Powerport Isp Airguard Chronoflex Titanium 8fr 1 Lumen Attachable Catheter Intermediate Kit Open Suture Plug Sterile Latex Free - [id number] Implanted:Qty: 1 on 08/24/2020 by Luba Olivarez MD at [facility] Port Right: Chest [employer] 06/04/2021 [id number] / / [id number] Procedures Procedure Name Priority Date/Time Associated Diagnosis Comments SKIN TAG REMOVAL Routine 06/10/2024 1:00 PM SYRUP SHED SUPERVISOR Skin tag LIPID PANEL Routine 05/27/2024 5:37 AM SYRUP SHED SUPERVISOR THYROID STIM HORMONE TSH Routine 05/27/2024 5:37 AM SYRUP SHED SUPERVISOR HEMOGLOBIN, GLYCOSYLATED Routine 05/27/2024 5:37 AM SYRUP SHED SUPERVISOR MAGNESIUM Routine 05/27/2024 5:37 AM SYRUP SHED SUPERVISOR BASIC METABOLIC PANEL Routine 05/27/2024 5:37 AM SYRUP SHED SUPERVISOR CBC W/DIFF AUTOMATED Routine 05/27/2024 5:37 AM SYRUP SHED SUPERVISOR URINALYSIS, AUTO, COMPLETE STAT 05/26/2024 6:21 PM SYRUP SHED SUPERVISOR MRI BRAIN WO CON STAT 05/26/2024 5:[address] STROKE(HEAD WO) STAT 05/26/2024 12 :56 PM SYRUP SHED SUPERVISOR CTA HEAD+NECK STAT 05/26/2024 12:56 PM SYRUP SHED SUPERVISOR ECG 12-LEAD STAT 05/26/2024 12:41 PM SYRUP SHED SUPERVISOR POCT GLUCOSE - HERNANDEZ DOCKED DEVICE Routine 05/26/2024 12:12 PM SYRUP SHED SUPERVISOR PRO-BRAIN NATRIURETIC PEPTIDE STAT 05/26/2024 11:57 AM SYRUP SHED SUPERVISOR PROTHROMBIN TIME, VENOUS STAT 05/26/2024 11:57 AM SYRUP SHED SUPERVISOR TROPONIN, QUANT STAT 05/26/2024 11:57 AM SYRUP SHED SUPERVISOR COMPREHENSIVE METABOLIC PANEL STAT 05/26/2024 11:57 AM SYRUP SHED SUPERVISOR CBC W/DIFF AUTOMATED STAT 05/26/2024 11:57 AM SYRUP SHED SUPERVISOR MRI BRAIN WWO CON Routine 04/08/2024 3:0 4 PM SYRUP SHED SUPERVISOR 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 (CMS/HCC HHS/HCC) CT CHEST WO CON Routine 04/08/2024 2:05 PM SYRUP SHED SUPERVISOR 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 (CMS/HCC HHS/HCC) HEPATITIS C ANTIBODY Routine 01/29/2023 8:44 AM CDT Encounter for hepatitis C screening test for low risk patient from Last 3 Months or Most Recently Relevant to Health Maintenance Results * Skin Tag Removal (06/10/2024 1:00 PM SYRUP SHED SUPERVISOR) Narrative Bekah West FNP-BC - 06/10/2024 1:00 PM SYRUP SHED SUPERVISOR LOLIS Bell 06/10/2024 2:21 PM Skin Tag Removal Date/Time: 06/10/2024 1:00 PM Performed by: LOLIS Bell Authorized by: LOLIS Bell Number of Lesions: 2 Lesion 1: Body area: head/neck Head/neck location: neck Initial size (mm): 0.2 Final defect size (mm): 0.2 Malignancy: benign lesion Destruction method: scissors used for extraction Lesion 2: Body area: head/neck Head/neck location: neck Initial size (mm): 0.2 Final defect size (mm): 0.2 Malignancy: benign lesion Destruction method: scissors used for extraction Comments: Risks (including but not limited to scarring, pain, infection, incomplete resolution) and benefits (resolution of skin lesion) of skin tag removal were discussed and patient wishes to proceed. Patient tolerated procedure well. Used 1% lidocaine with epi to numb the area with a 25 gauge needle. Bekah West BREAKER OPERATOR-BC PROCEDURES-UNRESULTE D Final Result * HEMOGLOBIN, GLYCATED (05/27/2024 5:37 AM SYRUP SHED SUPERVISOR) HGB A1C 5.1 <5.7 % 05/27/2024 8:09 AM [facility] Comment: INCREASED RISK OF DIABETES <5.7% NON-DIABETES 5.7-6.4% INCREASED RISK FOR FUTURE DIABETES > OR = 6.5 CONSISTENT WITH DIABETES STANDARDS OF MEDICAL CARE IN DIABETES-2010 DIABETES CARE, 33(SUPP 1): S1-S61,2010 ESTIMATED AVG GLUCOSE 100 mg/dL 05/27/2024 8:09 AM [facility] 05/27/2024 5:37 AM SYRUP SHED SUPERVISOR Myles Holder PA-C LABORATORY Final Result [facility] [address] [place] [address], * (ABNORMAL) BASIC METABOLIC PANEL (05/27/2024 5:37 AM SYRUP SHED SUPERVISOR) GLUCOSE 110(H) 70 - 99 MG/DL 05/27/2024 6:45 AM [facility] BUN 13 7 - 18 MG/DL 05/27/2024 6:45 AM [facility] CREATININE S/P/B 0.85 0.55 - 1.02 MG/DL 05/27/2024 6:45 AM [facility] SODIUM S/P/B 141 136 - 145 MMOL/L 05/27/2024 6:45 AM [facility] POTASSIUM S/P/B 3.8 3.5 - 5.1 MMOL/L 05/27/2024 6:45 AM [facility] CHLORIDE S/P/B 102 100 - 108 MMOL/L 05/27/2024 6:45 AM [facility] CO2 27.9 21 - 32 MMOL/L 05/27/2024 6:45 AM [facility] CALCIUM S/P/B 9.3 8.5 - 10.1 MG/DL 05/27/2024 6:45 AM [facility] ANION GAP 11.1 5 - 15 MMOL/L 05/27/2024 6:45 AM [facility] BUN CREATININE RATIO 15.3 6 - 26 05/27/2024 6:45 AM [facility] GFR ESTIMATE 73(L) >90 ML/MIN/1.7 3 M2 05/27/2024 6:45 AM [facility] Comment: NOTE: eGFR is not calculated for patients <18 years of age. This is an estimated GFR calculation using the new CKD EPI creatinine equation without race and so does not require a correction factor for race. This estimated GFR should not be used for calculating drug doses. 05/27/2024 5:37 AM SYRUP SHED SUPERVISOR us Myles Holder PA-C LABORATORY Final Result [facility] [address] [place] [address], * (ABNORMAL) LIPID PANEL (05/27/2024 5:37 AM SYRUP SHED SUPERVISOR) CHOLESTEROL 255(H) <200.0 MG/DL 05/27/2024 6:37 AM [facility] TRIGLYCERIDES 117 <150 MG/DL 05/27/2024 6:37 AM [facility] HDL 63 >40.0 MG/DL 05/27/2024 6:37 AM [facility] LDL (CALCULATED) 169(H) <100 MG/DL 05/27/2024 6:37 AM [facility] NON HDL CHOLESTEROL 192(H) <130 MG/DL 05/27/2024 6:37 AM [facility] CHOL/HDL RATIO 4.0 0.0 - 4.5 05/27/2024 6:37 AM [facility] VLDL CALCULATION 23 5 - 55 MG/DL 05/27/2024 6:37 AM [facility] LIPID INTERPRETATION 05/27/2024 6:37 AM [facility] Comment: [facility] REPORT RECOMMENDATIONS: ADULT CHILD LOW RISK: CHOLESTEROL <200 <170 TRIGLYCERIDE <150 --- HDL >=60 --- LDL <100 <110 BORDERLINE: CHOLESTEROL 200-239 170-199 TRIGLYCERIDE 150-199 --- HDL 40-59 --- LDL 100-159 110-129 HIGH RISK: CHOLESTEROL >=240 >=200 TRIGLYCERIDE >=200 --- HDL <40 --- LDL >=160 >=130 05/27/2024 5:37 AM SYRUP SHED SUPERVISOR us Myles Holder PA-C LABORATORY Final Result [facility] [address] [place] [address], * (ABNORMAL) CBC W/DIFF AUTOMATED (05/27/2024 5:37 AM SYRUP SHED SUPERVISOR) Only the most recent of2 resultswithin the time period is included. WBC 7.28 4.4 - 11.0 x10'3/uL 05/27/2024 6:19 AM [facility] RBC 4.24(L) 4.50 - 5.10 x10'6/uL 05/27/2024 6:19 AM [facility] HGB 12.9 12.3 - 15.3 G/DL 05/27/2024 6:19 AM [facility] HCT 38.5 35.9 - 44.6 % 05/27/2024 6:19 AM [facility] MCV 90.8 80.0 - 96.0 FL 05/27/2024 6:19 AM [facility] MCH 30.4 25.3 - 30.9 PG 05/27/2024 6:19 AM [facility] MCHC 33.5 31.0 - 34.1 G/DL 05/27/2024 6:19 AM [facility] RDW 13.2 12.4 - 15.1 % 05/27/2024 6:19 AM [facility] PLT 292 151 - 353 x10'3/uL 05/27/2024 6:19 AM [facility] MPV 9.5(L) 9.6 - 12.0 FL 05/27/2024 6:19 AM [facility] RBC MORPHOLOGY NORMAL 05/27/2024 6:19 AM [facility] PLT MORPH. NORMAL 05/27/2024 6:19 AM [facility] WBC MORPHOLOGY NORMAL 05/27/2024 6:19 AM [facility] LYMPHOCYTES % 23.9 15.8 - 45.0 % 05/27/2024 6:19 AM [facility] NEUTROPHILS % 63.3 42.1 - 71.9 % 05/27/2024 6:19 AM SYRUP SHED SUPERVISOR [facility] MONOCYTES % 6.9 5.7 - 12.5 % 05/27/2024 6:19 AM [facility] EOSINOPHILS 4.7 0.0 - 5.6 % 05/27/2024 6:19 AM [facility] BASOPHILS 0.8 0.0 - 1.3 % 05/27/2024 6:19 AM [facility] ABS. NEUTROPHILS 4.61 1.40 - 6.00 x10'3/uL 05/27/2024 6:19 AM [facility] IMMATURE GRANS % 0.4 0.0 - 0.5 % 05/27/2024 6:19 AM [facility] ABS. LYMPHOCYTES 1.74 0.80 - 4.70 x10'3/uL 05/27/2024 6:19 AM [facility] 05/27/2024 5:37 AM SYRUP SHED SUPERVISOR Myles Holder PA-C LABORATORY Final Result Performing Organization Address [facility]/ZIP Co de Phone Number [facility] [address] [place] [address], [place] [phone] * (ABNORMAL) THYROID STIM HORMONE, TSH (05/27/2024 5:37 AM SYRUP SHED SUPERVISOR) TSH 3.749(H) 0.358 - 3.74 uIU/ML 05/27/2024 6:45 AM SYRUP SHED SUPERVISOR [facility] Comment: HIGH DOSES OF BIOTIN MAY INTERFERE WITH THIS TEST RESULT. CORRELATION TO CLINICAL HISTORY AND PRESENTATION RECOMMENDED. 05/27/2024 5:37 AM SYRUP SHED SUPERVISOR Myles Holder PA-C LABORATORY Final Result Performing Organization Address [facility]/ZIP Co de Phone Number [facility] [address] [place] [address], [place] [phone] * MAGNESIUM (05/27/2024 5:37 AM SYRUP SHED SUPERVISOR) MAGNESIUM 2.0 1.8 - 2.4 MG/DL 05/27/2024 6:45 AM SYRUP SHED SUPERVISOR [facility] 05/27/2024 5:37 AM SYRUP SHED SUPERVISOR Myles Holder PA-C LABORATORY Final Result [facility] [address] [place] [address], [place] [phone] * Urinalysis, Auto, Complete (05/26/2024 6:21 PM SYRUP SHED SUPERVISOR) COLOR (U) YELLOW 05/26/2024 6:43 PM [facility] TRANSPARENCY CLEAR 05/26/2024 6:43 PM [facility] SPECIFIC GRAVITY (U) 1.010 1.000 - 1.030 05/26/2024 6:43 PM [facility] U PH 7.5 5.0 - 9.0 05/26/2024 6:43 PM [facility] LEUKOCYTES (U) NEGATIVE NEGATIVE 05/26/2024 6:43 PM [facility] NITRITES NEGATIVE NEGATIVE 05/26/2024 6:43 PM [facility] PROTEIN RANDOM (U) NEGATIVE NEGATIVE 05/26/2024 6:43 PM [facility] GLUCOSE (U) NEGATIVE NEGATIVE 05/26/2024 6:43 PM [facility] KETONES MG/DL (U) NEGATIVE NEGATIVE 05/26/2024 6:43 PM [facility] BILIRUBIN (U) NEGATIVE NEGATIVE 05/26/2024 6:43 PM SYRUP SHED SUPERVISOR [facility] BLOOD (U) NEGATIVE NEGATIVE 05/26/2024 6:43 PM SYRUP SHED SUPERVISOR [facility] WBC/HPF NONE SEEN 0 - 5 /HPF 05/26/2024 6:43 PM SYRUP SHED SUPERVISOR [facility] RBC/HPF 0-5 0 - 5 /HPF 05/26/2024 6:43 PM SYRUP SHED SUPERVISOR [facility] EPI/HPF RARE /HPF 05/26/2024 6:43 PM SYRUP SHED SUPERVISOR [facility] BACTERIA (U) RARE /HPF 05/26/2024 6:43 PM SYRUP SHED SUPERVISOR [facility] URINE SPECIMEN OBTAINED BY CLEAN CATCH PROCEDURE / Unknown 05/26/2024 6:21 PM SYRUP SHED SUPERVISOR us Jaky Christy MD URINE ORDERABLES Final Result Performing Organization Address City/State/[facility] Co de Phone Number [facility] [address] [place] [address], [place] [phone] * MRI BRAIN WO CON (05/26/2024 5:16 PM SYRUP SHED SUPERVISOR) Anatomical Region Laterality Modality Head Magnetic Resonan ce 05/26/2024 5:22 PM SYRUP SHED SUPERVISOR Impressions 05/26/2024 5:24 PM SYRUP SHED SUPERVISOR IMPRESSION: 1. No evidence of acute infarct or intracranial mass lesion. 2. Chronic senescent changes. Referred By: Interpreted By: Tom Bello MD, 05/26/2024 5:22 PM Narrative 05/26/2024 5:24 PM SYRUP SHED SUPERVISOR [facility] [address] [facility] [place] [address] INDICATION: Vertigo EXAMINATION: MRI of the brain without contrast. TECHNIQUE: Multisequence multiplanar unenhanced imaging. DATE/TIME: 05/26/2024 4:26 PM COMPARISON: 04/08/2024, CT, same date. FINDINGS: There is no evidence of restricted diffusion or acute infarct. There is no evidence of intracranial mass lesion, mass effect, or midline shift. There are a few scattered bilateral foci of periventricular and deep white matter T2 and FLAIR hyperintensity, likely due to chronic small vessel ischemic disease. There is mild volume loss with enlargement of the ventricles and hemispheric sulci. The proximal portions of the major intracranial arterial flow voids are grossly patent. No abnormal extra- axial collections identified. Gradient images reveal no evidence of hemorrhage. The craniocervical junction, sellar content, and pineal region appear unremarkable. Mastoid air cells, paranasal sinuses, and images of the orbits are unremarkable. Procedure Note Tom Bello MD - 05/26/2024 [facility] [address] [place] [address] INDICATION: Vertigo EXAMINATION: MRI of the brain without contrast. TECHNIQUE: Multisequence multiplanar unenhanced imaging. DATE/TIME: 05/26/2024 4:26 PM COMPARISON: 04/08/2024, CT, same date. FINDINGS: There is no evidence of restricted diffusion or acute infarct. There is noevidence of intracranial mass lesion, mass effect, or midline shift. Thereare a few scattered bilateral foci of periventricular and deep whitematter T2 and FLAIR hyperintensity, likely due to chronic small vesselischemic disease. There is mild volume loss with enlargement of theventricles and hemispheric sulci. The proximal portions of the majorintracranial arterial flow voids are grossly patent. No abnormalextra-axial collections identified. Gradient images reveal no evidence ofhemorrhage. The craniocervical junction, sellar content, and pineal regionappear unremarkable. Mastoid air cells, paranasal sinuses, and images ofthe orbits are unremarkable. IMPRESSION: 1. No evidence of acute infarct or intracranial mass lesion. 2. Chronic senescent changes. Referred By: Interpreted By: Tom Bello MD, 05/26/2024 5:22 PM us Myles Holder PA-C MRI Final Result * CT STROKE(HEAD WO) (05/26/2024 12:56 PM SYRUP SHED SUPERVISOR) Anatomical Region Laterality Modality Head Computed Tomogra phy 05/26/2024 12:2 0 PM SYRUP SHED SUPERVISOR Impressions 05/26/2024 12:22 PM SYRUP SHED SUPERVISOR IMPRESSION: 1. No acute intracranial hemorrhage or mass effect 2. Mild atrophy and chronic small vessel ischemic changes the supratentorial white matter. MRI would be more sensitive for the detection of an acute infarct. Referred By: Interpreted By: Matty Anderson MD, 05/26/2024 12:20 PM Narrative 05/26/2024 12:22 PM SYRUP SHED SUPERVISOR [facility] [address] [place] [address] EXAMINATION:Head CT without contrast 05/26/2024 INDICATION:Vertigo, history of small cell lung cancer, evaluate for stroke TECHNIQUE: Axial CT images of the head were acquired with intravenous contrast. Sagittal and coronal reformats were constructed. Radiation dose reduction techniques were used. COMPARISON: Brain MRI FINDINGS:No acute intracranial hemorrhage, mass effect or midline shift or extra-axial fluid collection. No ventriculomegaly, sulcal effacement or loss of lozano/white matter differentiation No acute osseous abnormality. Paranasal sinuses and mastoid air cells are clear. The orbits and globes are unremarkable. No significant intracranial soft tissue swelling Procedure Note Matty Anderson MD - 05/26/2024 [facility] [address] [place] [address] EXAMINATION:Head CT without contrast 05/26/2024 INDICATION:Vertigo, history of small cell lung cancer, evaluate forstroke TECHNIQUE: Axial CT images of the head were acquired with intravenouscontrast. Sagittal and coronal reformats were constructed. Radiation dosereduction techniques were used. COMPARISON: Brain MRI FINDINGS:No acute intracranial hemorrhage, mass effect or midline shift orextra- axial fluid collection. No ventriculomegaly, sulcal effacement orloss of lozano/white matter differentiation No acute osseous abnormality. Paranasal sinuses and mastoid air cells areclear. The orbits and globes are unremarkable. No significantintracranial soft tissue swelling IMPRESSION: 1. No acute intracranial hemorrhage or mass effect 2. Mild atrophy and chronic small vessel ischemic changes thesupratentorial white matter. MRI would be more sensitive for the detection of an acute infarct. Referred By: Interpreted By: Matty Anderson MD, 05/26/2024 12:20 PM Jaky Christy MD CT Final Result * CTA HEAD+NECK (05/26/2024 12:56 PM SYRUP SHED SUPERVISOR) Anatomical Region Laterality Modality Head, Neck Computed Tomogra phy 05/26/2024 12:2 2 PM SYRUP SHED SUPERVISOR Impressions 05/26/2024 12:33 PM SYRUP SHED SUPERVISOR IMPRESSION: Head CTA: No focal intracranial stenosis, large vessel occlusion or aneurysm Neck CTA: 1. 61% stenosis at the origin of the left internal carotid artery 2. 21% stenosis of the proximal right internal carotid artery 3. Left vertebral artery is hypoplastic. No measurable vertebral artery stenosis, dissection flap or evidence of aneurysm. 4. Pulmonary emphysema and sequela prior granulomatous disease. MRI would be more sensitive for the detection of an acute infarct. Referred By: Interpreted By: Matty Anderson MD, 05/26/2024 12:22 PM Narrative 05/26/2024 12:33 PM SYRUP SHED SUPERVISOR [facility] [address] [place] [address] EXAMINATION:CT angiogram of the head and neck with contrast 05/26/2024 INDICATION:Vertigo, history of small cell lung cancer TECHNIQUE: Axial CT images of the head and neck were acquired following administration of 85 mL Isovue-370 contrast intravenously. Axial sagittal and coronal reformats were constructed. Radiation dose reduction techniques were used. COMPARISON: Brain MRI with and without contrast 04/08/2024, noncontrast head CT 05/26/2024 FINDINGS:Head CTA: No acute intracranial hemorrhage, mass effect or midline shift or extra axial fluid collection. No ventriculomegaly, sulcal effacement or loss of lozano/white matter differentiation There is mild cerebral atrophy with concordant prominence of ventricles. Mild decreased density is noted within the supratentorial white matter. No acute osseous abnormality. Paranasal sinuses and mastoid air cells are clear. The orbits and globes are unremarkable There is opacification of the intracranial internal carotid, vertebral basilar is. There is opacification of the anterior, middle and posterior cerebral arteries. There is a origin of the right posterior cerebral artery. No focal canal stenosis, large vessel occlusion or aneurysm. There is opacification the superior sagittal sinus, inferior sagittal sinus, internal cerebral veins, medially, straight sinus, transverse sinuses and sigmoid sinuses. No abnormal enhancement. Neck CTA: Calcifications noted within the aortic arch. The origins of great vessels are unremarkable. The innominate and proximal subclavian arteries are unremarkable. The right common carotid artery is unremarkable. There is mild calcified plaque at the right carotid bifurcation and proximal right internal carotid artery causing stenosis measuring up to 21%. The left common carotid artery is unremarkable. There is calcified plaque at the left carotid bifurcation and origin of the left internal carotid artery causing stenosis measuring up to 61%. The vertebral arteries are opacified. The left vertebral artery is hypoplastic No measurable vertebral artery stenosis. No dissection flap or evidence of aneurysm within the neck. Calcifications are seen within the mediastinum compatible with prior granulomatous disease. Degenerative changes are noted within the upper lungs moderate multilevel degenerative changes are noted throughout the cervical spine. The thyroid gland is unremarkable. Procedure Note Matty Anderson MD - 05/26/[address] [place] [address] EXAMINATION:CT angiogram of the head and neck with contrast 05/26/2024 INDICATION:Vertigo, history of small cell lung cancer TECHNIQUE: Axial CT images of the head and neck were acquired followingadministration of 85 mL Isovue-370 contrast intravenously. Axial sagittaland coronal reformats were constructed. Radiation dose reductiontechniques were used. COMPARISON: Brain MRI with and without contrast 04/08/2024, noncontrast headCT 05/26/2024 FINDINGS:Head CTA: No acute intracranial hemorrhage, mass effect ormidline shift or extra axial fluid collection. No ventriculomegaly,sulcal effacement or loss of lozano/white matter differentiation There is mild cerebral atrophy with concordant prominence of ventricles.Mild decreased density is noted within the supratentorial white matter. No acute osseous abnormality. Paranasal sinuses and mastoid air cells areclear. The orbits and globes are unremarkable There is opacification of the intracranial internal carotid, vertebralbasilar is. There is opacification of the anterior, middle and posteriorcerebral arteries. There is a origin of the right posteriorcerebral artery. No focal canal stenosis, large vessel occlusion or aneurysm. There is opacification the superior sagittal sinus, inferior sagittalsinus, internal cerebral veins, medially, straight sinus, transversesinuses and sigmoid sinuses. No abnormal enhancement. Neck CTA: Calcifications noted within the aortic arch. The origins ofgreat vessels are unremarkable. The innominate and proximal subclavianarteries are unremarkable. The right common carotid artery isunremarkable. There is mild calcified plaque at the right carotidbifurcation and proximal right internal carotid artery causing stenosismeasuring up to 21%. The left common carotid artery is unremarkable. There is calcified plaqueat the left carotid bifurcation and origin of the left internal carotidartery causing stenosis measuring up to 61%. The vertebral arteries are opacified. The left vertebral artery ishypoplastic No measurable vertebral artery stenosis. No dissection flap or evidenceof aneurysm within the neck. Calcifications are seen within the mediastinum compatible with priorgranulomatous disease. Degenerative changes are noted within the upperlungs moderate multilevel degenerative changes are noted throughout thecervical spine. The thyroid gland is unremarkable. IMPRESSION: Head CTA: No focal intracranial stenosis, large vessel occlusion oraneurysm Neck CTA: 1. 61% stenosis at the origin of the left internal carotid artery 2. 21% stenosis of the proximal right internal carotid artery 3. Left vertebral artery is hypoplastic. No measurable vertebral arterystenosis, dissection flap or evidence of aneurysm. 4. Pulmonary emphysema and sequela prior granulomatous disease. MRI would be more sensitive for the detection of an acute infarct. 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: : 1950 Requested By: JAKY CHRISTY Order Number: [id number] Reading MD: Myles Orozco Measurements Intervals [place] Rate: 78 P: 62 MN: 162 QRS: 89 QRSD: 81 T: 75 QT: 379 QTc: 432 Interpretive Statements SINUS RHYTHM Compared to ECG 08/23/2023 08:46:44 No significant changes P SHED SUPERVISOR Procedure Note Myles Orozco MD - 05/26/2024 [facility] Test Date: 2024-05-26 Pat Name: LESLY CHENG Department: 85 Room: 101 Gender: Female Marking Clerk: : 1950 Requested By: JAKY CHRISTY Order Number: [id number] Reading : Myles Orozco Measurements Intervals [place] Rate: 78 P: 62 MN: 162 QRS: 89 QRSD: 81 T: 75 QT: 379 QTc: 432 Interpretive Statements SINUS RHYTHM Compared to ECG 08/23/2023 08:46:44 No significant changes P SHED SUPERVISOR Jaky Christy MD ECG ORDERABLES Final Result [facility] ([facility] RAD * POCT glucose (05/26/2024 12:12 PM SYRUP SHED SUPERVISOR) [facility] GLUCOSE POC 94 70 - 110 mg/dL 05/26/2024 12:14 PM SYRUP SHED SUPERVISOR [facility] () [facility] 05/26/2024 12:1 2 PM SYRUP SHED SUPERVISOR us Jaky Christy MD POCT ORDERABLES - DEVICE Final Result [facility] [address] [place] [address], [place] [phone] * (ABNORMAL) PRO-BRAIN NATRIURETIC PEPTIDE (05/26/2024 11:57 AM SYRUP SHED SUPERVISOR) PRO-B TYPE NATRIURETIC PEPTIDE 152(H) <125 PG/ML 05/26/2024 12:32 PM SYRUP SHED SUPERVISOR [facility] Comment: CUT POINTS ESTABLISHED BY [employer] ON NT PROBNP (ICON) STUDY (2006). AGE INDEPENDENT: <300 PG/ML HAS A 99% NEGATIVE PREDICTIVE VALUE FOR EXCLUDING ACUTE CHF <50 YEARS: >450 PG/ML IS CONSISTENT WITH ACUTE CHF 50-75 YEARS: >900 PG/ML IS CONSISTENT WITH ACUTE CHF >75 YEARS: >1800 PG/ML IS CONSISTENT WITH ACUTE CHF IN PATIENTS WITH RENAL INSUFFICIENCY (GFR <60), >1200 PG/ML YIELDS A DIAGNOSTIC SENSITIVITY AND SPECIFICITY OF 89% AND 72% FOR ACUTE CHF. 05/26/2024 11:5 7 AM SYRUP SHED SUPERVISOR us Jaky Christy MD LABORATORY Final Result Performing Organization Address [facility]/ZIP Co de Phone Number [facility] [address] [place] [address], [place] [phone] * PROTIME/INR, VENOUS (05/26/2024 11:57 AM SYRUP SHED SUPERVISOR) PROTIME 11.1 9.1 - 12.4 SEC 05/26/2024 12:16 PM SYRUP SHED SUPERVISOR [facility] INR 1.0 05/26/2024 12:16 PM SYRUP SHED SUPERVISOR [facility] Comment: Recommend INR ranges for Oral Anticoagulant Therapy: Mechanical Cardiac Values 2.5-3.5 All others indication 2.0-3.0 05/26/2024 11:5 7 AM SYRUP SHED SUPERVISOR us Jaky Christy MD LABORATORY Final Result [facility] [address] [place] [address], * (ABNORMAL) COMPREHENSIVE METABOLIC PANEL (05/26/2024 11:57 AM SYRUP SHED SUPERVISOR) GLUCOSE 102(H) 70 - 99 MG/DL 05/26/2024 12:32 PM [facility] BUN 10 7 - 18 MG/DL 05/26/2024 12:32 PM [facility] CREATININE S/P/B 0.90 0.55 - 1.02 MG/DL 05/26/2024 12:32 PM [facility] SODIUM S/P/B 138 136 - 145 MMOL/L 05/26/2024 12:32 PM [facility] POTASSIUM S/P/B 4.0 3.5 - 5.1 MMOL/L 05/26/2024 12:32 PM [facility] CHLORIDE S/P/B 98(L) 100 - 108 MMOL/L 05/26/2024 12:32 PM [facility] CO2 30.7 21 - 32 MMOL/L 05/26/2024 12:32 PM [facility] CALCIUM S/P/B 9.5 8.5 - 10.1 MG/DL 05/26/2024 12:32 PM [facility] BILIRUBIN TOTAL S/P/B 0.5 0.2 - 1.2 MG/DL 05/26/2024 12:32 PM [facility] TOTAL PROTEIN S/P/B 7.9 6.4 - 8.2 G/DL 05/26/2024 12:32 PM [facility] ALBUMIN S/P/B 4.0 3.4 - 5.0 G/DL 05/26/2024 12:32 PM [facility] AST 16 15 - 37 U/L 05/26/2024 12:32 PM [facility] ALT 17 14 - 55 U/L 05/26/2024 12:32 PM [facility] ALKALINE PHOSPHATASE S/P/B 132 50 - 136 U/L 05/26/2024 12:32 PM [facility] ANION GAP 9.3 5 - 15 MMOL/L 05/26/2024 12:32 PM [facility] BUN CREATININE RATIO 11.1 6 - 26 05/26/2024 12:32 PM [facility] A/G RATIO 1.0 1.0 - 2.0 RATIO 05/26/2024 12:32 PM [facility] GFR ESTIMATE 68(L) >90 ML/MIN/1.7 3 M2 05/26/2024 12:32 PM [facility] Comment: NOTE: eGFR is not calculated for patients <18 years of age. This is an estimated GFR calculation using the new CKD EPI creatinine equation without race and so does not require a correction factor for race. This estimated GFR should not be used for calculating drug doses. 05/26/2024 11:5 7 AM SYRUP SHED SUPERVISOR Jaky Christy MD LABORATORY Final Result [facility] [address] [place] [address], * TROPONIN, QUANT (05/26/2024 11:57 AM SYRUP SHED SUPERVISOR) TROPONIN I HIGH SENSITIVITY 7 0 - 50 ng/L 05/26/2024 12:28 PM [facility] Comment: HIGH DOSES OF BIOTIN, TROPONIN-SPECIFIC AUTOANTIBODIES, AND ANTIBODY THERAPY CONTAINING HAMA MAY INTERFERE WITH THIS TEST RESULT. CORRELATION TO CLINICAL HISTORY AND PRESENTATION RECOMMENDED. 05/26/2024 11:5 7 AM SYRUP SHED SUPERVISOR Jaky Christy MD LABORATORY Final Result [facility] [address] [place] [address], * MRI BRAIN WWO CON (04/08/2024 3:04 PM SYRUP SHED SUPERVISOR) Anatomical Region Laterality Modality Head Magnetic Resonan ce 04/12/2024 10:2 4 AM SYRUP SHED SUPERVISOR Impressions 04/12/2024 10:27 AM SYRUP SHED SUPERVISOR IMPRESSION: 1. No evidence of intracranial metastasis or interval change 2. Mild atrophy and chronic small vessel ischemic changes of the supratentorial white matter. Referred By: JOSEPH DUENAS Interpreted By: Matty Anderson MD, 04/12/2024 10:24 AM Narrative 04/12/2024 10:27 AM SYRUP SHED SUPERVISOR [facility] [address] [place] [address] EXAMINATION:Brain MRI with and without contrast 04/08/2024 INDICATION:Small cell lung cancer staging TECHNIQUE: Multiplanar multisequence MR imaging of the head was performed prior to and following administration of 10 mL MultiHance contrast intravenously. COMPARISON: Brain MRI 11/03/2023 FINDINGS:No restricted diffusion. No acute hemorrhage, mass effect or midline shift or extra-axial fluid collection. No ventriculomegaly of the scattered foci of increased FLAIR signal seen within the periventricular and subcortical white matter. There is mild cerebral atrophy with concordant prominence of the ventricles. Expected flow voids are noted within the intracranial internal carotid, right vertebral and basilar arteries. Cerebellopontine angles and internal auditory canals are unremarkable The pituitary gland midline structures are unremarkable. Bone marrow signal is within normal limits. The orbits and globes are unremarkable. Expected sigmoids are seen within the paranasal sinuses and mastoid air cells No abnormal enhancement. Evaluation is mildly limited due to motion and artifact. Procedure Note Matty Anderson MD - 04/12/2024 [facility] [address] [place] [address] EXAMINATION:Brain MRI with and without contrast 04/08/2024 INDICATION:Small cell lung cancer staging TECHNIQUE: Multiplanar multisequence MR imaging of the head was performedprior to and following administration of 10 mL MultiHance contrastintravenously. COMPARISON: Brain MRI 11/03/2023 FINDINGS:No restricted diffusion. No acute hemorrhage, mass effect ormidline shift or extra-axial fluid collection. No ventriculomegaly of thescattered foci of increased FLAIR signal seen within the periventricularand subcortical white matter. There is mild cerebral atrophy withconcordant prominence of the ventricles. Expected flow voids are noted within the intracranial internal carotid,right vertebral and basilar arteries. Cerebellopontine angles andinternal auditory canals are unremarkable The pituitary gland midline structures are unremarkable. Bone marrowsignal is within normal limits. The orbits and globes are unremarkable.Expected sigmoids are seen within the paranasal sinuses and mastoid aircells No abnormal enhancement. Evaluation is mildly limited due to motion and artifact. IMPRESSION: 1. No evidence of intracranial metastasis or interval change 2. Mild atrophy and chronic small vessel ischemic changes of thesupratentorial white matter. Referred By: JOSEPH DUENAS Interpreted By: Matty Anderson MD, 04/12/2024 10:24 AM us Joseph Duenas MD MRI Final Result * CT CHEST WO CON (04/08/2024 2:05 PM SYRUP SHED SUPERVISOR) Anatomical Region Laterality Modality Chest Computed Tomogra phy 04/12/2024 10:5 7 AM SYRUP SHED SUPERVISOR Impressions 04/12/2024 11:03 AM SYRUP SHED SUPERVISOR IMPRESSION: 1. Fibroatelectasis/scarring in the superior segment left lower lobe consistent with posttreatment change. 2. No new suspicious pulmonary nodule. 3. Pulmonary emphysema. Referred By: JOSEPH DUENAS Interpreted By: Delicia Bains MD, 04/12/2024 10:57 AM Narrative 04/12/2024 11:03 AM SYRUP SHED SUPERVISOR [facility] [address] [place] [id number] EXAMINATION: CT Chest without contrast 04/08/2024 1:12 PM CLINICAL HISTORY: Left lower lobe small cell carcinoma status post BLACK STUDIES PROFESSOR. Surveillance imaging. COPD. COMPARISON: CTA chest 08/23/2023, 07/25/2023, 07/01/2022, FDG PET/CT for 2020 TECHNIQUE: Computed tomography of the chest was obtained without administration of intravenous contrast according to routine protocol. A dose lowering technique was used for this procedure, which may include, but is not limited to, dose reduction technique, automated exposure control, the use of iterative reconstruction, and ALARA (As Low As Reasonably Achievable) / Image Gently techniques. FINDINGS: There is a bandlike linear area of fibronodular atelectasis/scarring in the superior segment left lower lobe corresponding with the previously treated carcinoma. Multifocal pleural parenchymal linear and reticular opacities appear similar to prior exams and likely reflect areas of pleural-parenchymal scarring. No new suspicious nodule. Previously described nodular infiltrate in the lateral right middle lobe has decreased with a linear reticular opacity at this location, likely an area of post infectious/inflammatory scarring. Calcified granulomas. Pulmonary emphysema. Calcified hilar and mediastinal lymph nodes. No axillary, hilar, or mediastinal lymphadenopathy. Heart size is normal. Coronary artery calcifications. Atherosclerotic calcification of the thoracic aorta and visualized upper abdominal aorta. Thoracic aorta and main pulmonary artery are normal in caliber. Small hiatal hernia. Granulomatous calcifications in the spleen. Multilevel spondylosis. Procedure Note Delicia Bains MD - 04/12/2024 [facility] [address] [place] [id number] EXAMINATION: CT Chest without contrast 04/08/2024 1:12 PM CLINICAL HISTORY: Left lower lobe small cell carcinoma status post BLACK STUDIES PROFESSOR.Surveillance imaging. COPD. COMPARISON: CTA chest 08/23/2023, 07/25/2023, 07/01/2022, FDG PET/CT for [id number] TECHNIQUE: Computed tomography of the chest was obtained withoutadministration of intravenous contrast according to routine protocol. Adose lowering technique was used for this procedure, which may include,but is not limited to, dose reduction technique, automated exposurecontrol, the use of iterative reconstruction, and ALARA (As Low AsReasonably Achievable) / Image Gently techniques. FINDINGS: There is a bandlike linear area of fibronodularatelectasis/scarring in the superior segment left lower lobe correspondingwith the previously treated carcinoma. Multifocal pleural parenchymallinear and reticular opacities appear similar to prior exams and likelyreflect areas of pleural-parenchymal scarring. No new suspicious nodule.Previously described nodular infiltrate in the lateral right middle lobehas decreased with a linear reticular opacity at this location, likely anarea of post infectious/inflammatory scarring. Calcified granulomas.Pulmonary emphysema. Calcified hilar and mediastinal lymph nodes. Noaxillary, hilar, or mediastinal lymphadenopathy. Heart size is normal.Coronary artery calcifications. Atherosclerotic calcification of thethoracic aorta and visualized upper abdominal aorta. Thoracic aorta andmain pulmonary artery are normal in caliber. Small hiatal hernia.Granulomatous calcifications in the spleen. Multilevel spondylosis. IMPRESSION: 1. Fibroatelectasis/scarring in the superior segment left lower lobeconsistent with posttreatment change. 2. No new suspicious pulmonary nodule. 3. Pulmonary emphysema. Referred By: JOSEPH DUENAS Interpreted By: Delicia Bains MD, 04/12/2024 10:57 AM Joseph Duenas MD CT Final Result * HEPATITIS C AB ([facility] ONLY) (01/29/2023 8:44 AM CDT) HEPATITIS C AB NON-REACTI VE NON-REACTI VE 01/29/2023 3:23 PM CDT [facility] 01/29/2023 8:44 AM CDT Jennifer Monique NP LABORATORY Final Result [facility] [address] [place] [address], from Last 3 Months or Most Recently Relevant to Health Maintenance Insurance [place] [id number] Advance Directives * Full Code (Latest Code Status on File) Date Activated Date Inactivated Comments 05/26/2024 2:06 PM 05/27/2024 12:03 PM * Full Code Date Activated Date Inactivated Comments 08/23/2023 4:02 PM 08/25/2023 7:28 PM * DNR Date Activated Date Inactivated Comments 07/25/2023 2:09 PM 08/01/2023 1:40 PM * Full Code Date Activated Date Inactivated Comments 07/08/2022 1:34 PM 07/10/2022 2:11 PM * Full Code Date Activated Date Inactivated Comments 07/02/2022 11:00 AM 07/03/2022 2:50 PM Care Teams Superintendent Tests Relationship Specialty Start Date End Date Bekah West FNP-SEPIDEH [address] [place] [address] PCP - General Nurse Practitioner Family 05/07/23
--- OUTSIDE RECORDS SUMMARY | 2024-06-16 12:36 | XMS_ITS | Encounter Summary ---
Author Organization [employer] Address [address] [place] [address] Care Team Providers Care Operations Project Manager Name Role Phone Unavailable Primary Care Provider Unavailabl e Encounter Details Date Type Department Care Team (Late st Contact Info) Description 09/30/2003 Outpatient Historical [facility] Internal Medicine [address] [place] [address] Markell Nguyễn MD 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
--- OUTSIDE RECORDS SUMMARY | 2024-06-16 12:36 | XMS_ITS | Encounter Summary ---
Author Organization [employer] Address [address] [place] [address] Care Team Providers Care Flight Manager Name Role Phone Unavailable Primary Care Provider Unavailabl e Encounter Details Date Type Department Care Team (Late st Contact Info) Description 07/14/2002 Outpatient Historical [facility] Internal Medicine 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
--- OUTSIDE RECORDS SUMMARY | 2024-06-16 12:36 | XMS_ITS ---
Author Organization [facility] Address [address], [address] [place] [address] Phone Care Team Providers Care Director Distribution Name Role Phone Chris Kilgore MD Primary Care Provider [phone] Kwasi Appiah MD Unavailable Agustin Brody MD Unavailable [phone] Active Problems Problem Noted Date Diagnosed Date [...] 07/2012 Shingles (herpes zoster) polyneuropathy 09/09/19 13 Current Treatment and Therapy Plans SCLC - CISPLATIN/ETOPOSIDE phosphate (Etopophos) - CCSCI* Plan Start Date: 08/23/2020 Plan Provider:Agustin Brody MD Linked Problems 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 (HCC) Treatment Medications CISplatin (PLATINOL) chemo i nfusionCISplatin (PLATINOL) chemo infusion using 100 mgetoposide chemo infusionetoposide PHOSPHATE chemo infusion SUPPORT - B12 - CCSCI* Plan Start Date:01/18/2021 Plan Provider:Agustin Brody MD Linked Problems 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 (HCC) Treatment Medications No medications scheduled. SUPPORT - HYDRATION WITHOUT ADDITIVES - CCSCI* Plan Start Date:10/31/2020 Plan Provider:Agustin Brody MD Linked Problems 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 (HCC) Treatment Medications No medications scheduled. Past Treatment and Therapy Plans No past plan information found. Lifetime Dose Tracking * Chemical Lifetime Dose Automatic Entry Manual Entr y Cisplatin 302.1 mg/m2 (540 mg) 302.1 mg/m2 (540 mg) 0 mg/m2 (0 mg)
--- OUTSIDE RECORDS SUMMARY | 2024-06-16 12:36 | XMS_ITS | Encounter Summary ---
Author Organization [facility] Address [address] [place] [address] Care Team Providers Care Strickler Attendant Name Role Phone Radha Trujillo MD Primary Care Provider [phone] Javon Alex MD Unavailable Jennifer Monique NP Primary Care Provider [phone] [facility] Primary Care Provid er Encounter Details Date Type Department Care Team (Late st Contact Info) Description 10/31/2021 Prep for Procedure [facility] Medical Group General Surgery [address], [facility] [address] [place] [address] uLba Olivarez MD [address] [address] Social History Tobacco Use Types Packs/Day Years Used Date Smoking Tobacco: Former Cigarettes 1 40 1 970 - 2009 Smokeless Tobacco: Never Comments:na Alcohol Use Standard Drinks/Week Comments Never 0 (1 standard drink = 0.6 oz pur e alcohol) AUDIT-C Answer Date Recorded Q1: How often do you have a drink containing alc ohol? Never 08/23/2019 Average Number of Drinks Not on file 020 Frequency of Binge Drinking Not on file 08/05 PHQ-2 Answer Date Recorded PHQ-2 Score - If the patient scores above 3, please move on to questions 3-9 0 10/31/2021 Comments No Sex and Gender Information Value Date Recorded Sex Assigned at Female 07/01/2022 7:45 PM CDT Legal Sex Female 8:13 PM CDT Gender Identity Female 07/01/2022 7:45 PM CDT Sexual Orientation Straight 07/01/2022 7: 45 PM CDT COVID-19 Exposure Response Date Recorded In the last 10 days, have yo u been in contact with someone who was confirmed or suspected to have Coronavirus/COVID-19? No / Unsure 10/31/2021 11:18 AM CDT documented as of this encounter Plan of Treatment Upcoming Encounters Date Type Department Care Team (Late st Contact Info) Description 08/03/2024 1:00 PM CDT Office Visit [facility] [address] [address] Chris Kilgore MD [address] [place] [address] 04/26/2025 11:30 AM SALES AND LEASING AGENT Appointment [facility] Radiation Oncology [address] [facility] [place] [address] Joseph Liz MD [address] [place] [address] [place] [address] documented as of this encounter Visit Diagnoses Not on filedocumented in this encounter Additional Health Concerns Infection Onset Date Last Indicated Resolved Time COVID-19 Rule Out 07/01/2022 07/01/2022 07/01/2022 6:21 PM CDT COVID-19 Rule Out 07/08/2022 07/08/2022 07/08/2022 10:28 AM CDT COVID-19 Rule Out 07/25/2023 07/25/2023 07/25/2023 8:02 AM CDT Assessment Noted Time PHQ-9 Depression Total Score: 2 08/23/19 22 4:45 PM CDT documented as of this encounter Care Teams Strickler Attendant Relationship Specialty Start Date End Date Radha Trujillo MD PCP - General INTERNAL MEDICINE 08/13/19 07/11/22 [place] [address] [address] [place] [address] PCP - General Nurse Practitioner Family 07/12/2204/09 Bekah West, [facility] [address] [place] [address] PCP - General Nurse Practitioner Family 05/07/23 Javon Alex MD [address] [id number] Consulting Physician GASTROENTEROLOGY 08/02/21 09/01/22 documented as of this encounter
--- OUTSIDE RECORDS SUMMARY | 2024-06-16 12:36 | XMS_ITS | Encounter Summary ---
Author Organization [facility] Address [address] [place] [address] Phone Care Team Providers Care Occupational Therapist Name Role Phone Chris Kilgore MD Primary Care Provider [phone] Farhan Varner MD Unavailable [phone] APRN, SAUSAGE WRAPPER Unavailable [phone] Kwasi Appiah MD Unavailable Agustin Brody MD Unavailable [phone] Reason for Visit * Reason Comments Medication Refill Encounter Details Date Type Department Care Team (Late st Contact Info) Description 11/21/2020 Refill [facility] [address] [place] [address] Agustin Brody MD [address] [place] [address] Medication Refill Social History Tobacco Use Types Packs/Day Years Used Date Smoking Tobacco: Former Cigarettes Q uit: 2009 Smokeless Tobacco: Never Alcohol Use Standard Drinks/Week Comments Not Currently 0 (1 standard drink = 0.6 oz pur e alcohol) PHQ-2 Answer Date Recorded PHQ-2 Score 0 12/19/2018 Sexually Active Control Partners Comments Not Currently Comments No Sex and Gender Information Value Date Recorded Sex Assigned at Not on file Legal Sex Female 4:03 AM ENTERPRISE RESOURCE ANALYST Gender Identity Not on file Sexual Orientation Not on file Occupation Industry Job Start Date Job End Date retired Not on file Not on file Not on file COVID-19 Exposure Response Date Recorded In the last month, have you been in contact with someone who was confirmed or suspected to have Coronavirus / COVID-19? No / Unsure 11/22/2020 11:53 AM CDT documented as of this encounter Miscellaneous Notes * Telephone Encounter - Agustin Brody MD - 11/22/2020 2:36 PM CDT Ok to refill * Telephone Encounter - Lori Hussein RMA - 11/22/2020 2:33 PM CDT Pharmacy refill request. Please refill if appropriate. Thanks! documented in this encounter Plan of Treatment Upcoming Encounters Date Type Department Care Team (Late st Contact Info) Description 07/19/2024 10:00 AM CDT [facility] [address] [id number] 07/19/2024 10:30 AM CDT Office [facility] [address] [phone] Agustin Brody MD [address] [place] [address] 04/26/2025 10:00 AM ENTERPRISE RESOURCE ANALYST Ancillary Procedure [facility] [address] [phone] documented as of this encounter Visit Diagnoses Diagnosis Small cell lung cancer (HCC) Malignant neoplasm of bronchus and lung, unspecified site documented in this encounter Additional Health Concerns Assessment Noted Time PHQ-9 Depression Total Score: 0 11/21/19 8:35 AM CDT documented as of this encounter Care Teams Occupational Therapist Relationship Specialty Start Date End Date Chris Kilgore MD [address] [address] PCP - General Internal Medicine 07/27/20 [place] [address] [place] [address] [place] [address] Family Medicine 07/27/20 07/02/21 Little Marks, PATIENT SUPPORT ASSISTANT, SAUSAGE WRAPPER [address] [place] [address] Nurse Practitioner Certified Nurse Practitioner 09/08/12 07/02/21 Kwasi Appiah MD [address] [place] [address] Consulting Physician Pulmonary Disease 12/10/16 Agustin Brody MD [address] [place] [address] Consulting Physician Oncology 07/27/20 documented as of this encounter
--- OUTSIDE RECORDS SUMMARY | 2024-06-16 12:36 | XMS_ITS | Encounter Summary ---
Author Organization [facility] Address [address] [place] [address] Care Team Providers Care Nurses Medical Assistants Phlebotomists Name Role Phone [facility] Primary Care Provid er Reason for Visit * Reason Onset Date Comments Hospital Follow Up 08/05/2023 [facility] 07/24-07/31 Encounter Details Date Type Department Care Team (Latest Contact Info) Description 08/05/2023 Hospital Follow-up Call [facility] Care Management [address] [place] [address] Aylin Briceño RN Hospital Follow Up ([facility] 07/24-07/31) Social History Tobacco Use Types Packs/Day Years [...] material from your doctor or pharmacy? Never 07/25/2023 [facility] Utilities Answer Date Recorded In the past 12 months has e electric, gas, oil, or water company threatened to shut off services in your home? No 07/25/2023 Humiliation, Afraid, Rape, and Kick questionnair e Answer Date Recorded Within the last year, have y ou been afraid of your partner or ex-partner? No 07/25/2023 Within the last year, have y ou been humiliated or emotionally abused in other ways by your partner or ex-partner? No Within the last year, have y ou been kicked, hit, slapped, or otherwise physically hurt by your partner or ex-partner? No 07/25/2023 Within the last year, have y ou been raped or forced to have any kind of sexual activity by your partner or ex-partner? No 07/25/2023 Social Connection and Isolat ion Panel [NHANES] Answer Date Recorded In a typical week, how many times do you talk on the phone with family, friends, or neighbors? More than three times a week 07/25/2023 How often do you get togethe r with friends or relatives? More than three times a week 07/25/2023 How often do you attend chur ch or muslim services? Never 07/25/2023 Do you belong to any clubs o r organizations such as religious groups, unions, fraternal or athletic groups, or school groups? No 07/25/2023 How often do you attend meet ings of the clubs or organizations you belong to? Never 07/25/2023 Are you , , di vorced, , never , or living with a partner? 07/25/2023 AUDIT-C Answer Date Recorded Q1: How often do you have a drink containing alcohol? Never 07/25/2023 Q2: How many drinks containi ng alcohol do you have on a typical day when you are drinking? Patient does not drink Q3: How often do you have si x or more drinks on one occasion? Never 07/25/2023 Overall Financial Resource Strain (CARDIA) Answe r Date Recorded How hard is it for you to pa y for the very basics like food, housing, medical care, and heating? Not hard at all 07/25/2023 PHQ-2 Answer Date Recorded Patient Health Questionnaire-2 Score 0 07/25/2023 [facility] [place] of Occupat ional Health - Occupational Stress Questionnaire Answer Date Recorded Do you feel stress - tense, restless, nervous, or anxious, or unable to sleep at night because your mind is troubled all the time - these days? Not at all 07/25/2023 Exercise Vital Sign Answer Date Recorde d On average, how many days pe r week do you engage in moderate to strenuous exercise (like a brisk walk)? 0 days 07/25/2023 On average, how many minutes do you engage in exercise at this level? 0 min 07/25/2023 Hunger Vital Sign Answer Date Recorded Within the past 12 months, y ou worried that your food would run out before you got the money to buy more. Never true 07/25/19 24 Within the past 12 months, t he food you bought just didn't last and you didn't have money to get more. Never true 07/25/2023 PRAPARE - Transportation Answer Date Re corded In the past 12 months, has l ack of transportation kept you from medical appointments or from getting medications? No 07/06 In the past 12 months, has l ack of transportation kept you from meetings, work, or from getting things needed for daily living? No 07/25/2023 Housing Stability Vital Sign Answer Finesse e [...] place to sleep or slept in a detention (including now)? No 07/09/2022 Housing Stability Vital Sign Answer Finesse e Recorded In the last 12 months, was t here a time when you were not able to pay the mortgage or rent on time? No 07/25/2023 In the past 12 months, how m any times have you moved where you were living? 0 07/25/2023 At any time in the past [address] [facility], were you homeless or living in a detention (including now)? No 07/25/2023 Comments No Sex and Gender Information Value Date Recorded Sex Assigned at Female 07/01/2022 7:45 PM CDT Legal Sex Female 8:13 PM CDT Gender Identity Female 07/01/2022 7:45 PM CDT Sexual Orientation Straight 07/01/2022 7: 45 PM CDT documented as of this encounter Functional Status * Are you deaf or do you have serious difficulty hearing Answer Date of Assessment Author Status No 07/25/2023 5:29 PM CDT Claudia Redmond R N Active * Are you blind or do you have serious difficulty seeing, even when wearing glasses? Answer Date of Assessment Author Status No 07/25/2023 5:29 PM CDT Claudia Redmond, R N Active * Do you have serious difficulty walking or climbing stairs? Answer Date of Assessment Author Status No 07/25/2023 5:29 PM CDT Claudia Redmond, R N Active * Do you have difficulty dressing or bathing? Answer Date of Assessment Author Status No 07/25/2023 5:29 PM CDT Claudia Redmond, R N Active * Because of a physical, mental, or emotional condition, do you have difficulty doing errands alone such as visiting a doctor's office or shopping? Answer Date of Assessment Author Status No 07/25/2023 5:29 PM CDT Claudia Redmond R N Active documented as of this encounter Mental Status * Because of a physical, mental, or emotional condition, do you have serious difficulty concentrating, remembering, or making decisions? Answer Entry Date Author Status No 07/25/2023 5:29 PM CDT Claudia Redmond R N Active documented in this encounter Plan of Treatment Upcoming Encounters Date Type Department Care Team (Late st Contact Info) Description 08/03/2024 1:00 PM CDT Office Visit [facility] Medical Group Pulmonology Specialty Clinic [address] [phone] Chris Kilgore MD [address] [place] [address] 04/26/2025 11:30 AM MECHANICAL MAINTENANCE TECHNICIAN Appointment [facility] Radiation Oncology [address] [place] [address] Joseph Liz MD [address] [place] [address] [place] [address] documented as of this encounter Visit Diagnoses Not on filedocumented in this encounter Additional Health Concerns Assessment Noted Time PHQ-9 Depression Total Score: 2 06/03/19 23 10:09 AM MECHANICAL MAINTENANCE TECHNICIAN documented as of this encounter Care Teams Nurses Medical Assistants Phlebotomists Relationship Specialty Start Date End Date Bekah West FNP- [address] [place] [address] PCP - General Nurse Practitioner Family 05/07/23 documented as of this encounter
--- OUTSIDE RECORDS SUMMARY | 2024-06-16 12:36 | XMS_ITS | Encounter Summary ---
Author Organization [facility] Address [address] [place] [address] Care Team Providers Care Fuel Cell Binder Name Role Phone Radha Trujillo MD Primary Care Provider [phone] Javon Alex MD Unavailable Jennifer Monique NP Primary Care Provider [phone] [facility] Care Provid er Encounter Details Date Type Department Care Team (Late st Contact Info) Description 10/31/2021 Prep for Procedure [facility] Medical Group General Surgery [address], [facility] [address] [place] [address] Luba Olivarez MD [address] [address] Social History Tobacco Use Types [...] Description 08/03/2024 1:00 PM CDT Office Visit [facility] Pulmonology Specialty Clinic [address] [address] Chris Kilgore MD [address] [place] [address] 04/26/2025 11:30 AM PRACTICE ASSISTANT Appointment [facility] Radiation Oncology [address] [facility] [place] [address] Joseph Liz MD [address] [place] [address] [place] [address] documented as of this encounter Visit [...] documented as of this encounter Care Teams Fuel Cell Binder Relationship Specialty Start Date End Date Radha Trujillo MD PCP - General INTERNAL MEDICINE 08/13/19 07/11/22 [place] [address] [address], [address] [place] [address] PCP - General Nurse Practitioner Family 07/12/2204/09 Bekah West, [facility] [address] [place] [address] PCP - General Nurse Practitioner Family 05/07/23 Javon Alex MD [address] [phone] Consulting Physician GASTROENTEROLOGY 08/02/21 09/01/22 documented as of this encounter
--- OUTSIDE RECORDS SUMMARY | 2024-06-16 12:36 | XMS_ITS | Encounter Summary ---
Author Organization [facility] Address [address] [place] [address] Care Team Providers Care Stress Analyst Name Role Phone Unavailable Primary Care Provider Unavailabl e Encounter Details Date Type Department Care Team (Late st Contact Info) Description 02/24/2003 Outpatient Historical [facility] Internal Medicine [address] [place] [address] Markell Nguyễn MD [address] [facility] [address] [place] [address] Social History Tobacco Use Types Packs/Day Years Used Date Smoking Tobacco: Never Assessed Comments Unknown Sex and Gender Information Value Date Recorded Sex Assigned at Not on file Legal Sex Female 4:08 AM HANDLE SEWER Gender Identity Not on file Sexual Orientation Not on file documented as of this encounter Plan of Treatment Not on file documented as of this encounter Visit Diagnoses Not on filedocumented in this encounter
--- OUTSIDE RECORDS SUMMARY | 2024-06-16 12:36 | XMS_ITS | Encounter Summary ---
Author Organization [facility] Address [address] [place] [address] Care Team Providers Care Steam Hand Name Role Phone Radha Trujillo MD Primary Care Provider [phone] Javon Alex MD Unavailable Jennifer Monique NP Primary Care Provider [phone] [facility] Primary Care Provid er Encounter Details Date Type Department Care Team (Late st Contact Info) Description 08/17/[address] [facility] [address] [place] [address] Luba Olivarez MD [address] [place] [address] Social History Tobacco Use Types Packs/Day Years Used Date Smoking Tobacco: Former Cigarettes 1 40 1 970 - 2009 Smokeless Tobacco: Never Comments:E-Cig doesn't have nicotine in it. Alcohol Use Standard Drinks/Week Comments Never 0 [...] please move on to questions 3-9 0 07/18/2020 Comments No Sex and Gender Information Value [...] have Coronavirus / COVID-19? No / Unsure 08/16/2020 3:07 PM CDT documented as of this encounter Plan of Treatment Upcoming Encounters Date Type Department Care Team (Late st Contact Info) Description 08/03/2024 1:00 PM CDT Office Visit [facility] Medical Group Pulmonology Specialty Clinic [address] [address] Chris Kilgore MD [address] [place] [address] 04/26/2025 11:30 AM PLANT AND EQUIPMENT WORKER Appointment [facility] Radiation Oncology [address] [facility] [place] [address] Joseph Liz MD [address] [place] [address] documented as of this encounter Results * MRSA SCREENING (08/21/2020 10:05 AM CDT) SPEC DESCRIPTION NASAL 08/21/2020 9:50 AM CDT [facility] SPECIAL REQUESTS NO SPECIAL REQUEST 08/21/2020 9:50 AM CDT [facility] CULTURE RESULT NO METHICILLIN RESISTANT STAPH AUREUS ISOLATED 08/22/2020 11:01 AM CDT [facility] SPECIMEN FROM INTERNAL NOSE / Unknown 08/21/2020 10:05 AM CDT 08/21/2020 10:07 AM CDT us Luba Olivarez MD MICROBIOLOGY - GENERAL ORDER AURELIO Final Result [facility] [address] [place] [address], documented in this encounter Visit Diagnoses Diagnosis Pre-op testing- Primary Preoperative examination, unspecified documented in this encounter Additional Health Concerns Infection Onset Date Last Indicated Resolved Time COVID-19 Rule Out 08/21/2020 08/21/2020 08/21/2020 10:00 AM CDT COVID-19 Rule Out 08/21/2020 08/21/2020 08/22/2020 2:57 PM CDT COVID-19 Rule Out 03/10/2021 03/10/2021 03/11/2021 10:58 AM PLANT AND EQUIPMENT WORKER COVID-19 Rule Out 07/01/2022 07/01/2022 07/01/2022 6:21 PM CDT COVID-19 Rule Out 07/08/2022 07/08/2022 07/08/2022 10:28 AM CDT COVID-19 Rule Out 07/25/2023 07/25/2023 07/25/2023 8:02 AM CDT documented as of this encounter Care Teams Steam Hand Relationship Specialty Start Date End Date Radha Trujillo MD PCP - General INTERNAL MEDICINE 08/13/19 07/11/22 [place] [address] [address], [address] [place] [address] PCP - General Nurse Practitioner Family 07/12/2204/09 Bekah West FNP- [address] [place] [address] PCP - General Nurse Practitioner Family 05/07/23 Javon Alex MD [address] [address] Consulting Physician GASTROENTEROLOGY 08/02/21 09/01/22 documented as of this encounter
--- OUTSIDE RECORDS SUMMARY | 2024-06-16 12:36 | XMS_ITS | Encounter Summary ---
Author Organization [facility] Address [address] [place] [address] Phone Care Team Providers Care Crotch Breaker Name Role Phone Farhan Varner MD Primary Care Provider Chris Kilgore MD Primary Care Provider Farhan Varner MD Unavailable Little Marks SALESPERSON NEW CARS, ACQUISITION MANAGER Unavailable [phone] Kwasi Appiah MD Unavailable Agustin Brody MD Unavailable Reason for Visit * Reason Comments Medication Refill Encounter Details Date Type Department Care Team (Late st Contact Info) Description 10/14/2019 Refill [facility] [address] [place] [address] Kwasi Appiah MD [address] [place] [address] Medication Refill Social History Tobacco Use Types Packs/Day Years Used Date Smoking Tobacco: Former Cigarettes 1.5 44 0 12/06/1966 - 12/06/2010 Smokeless Tobacco: Never Comments:currently using e c igarettes 12/10/2016. RW/RN Alcohol Use Standard Drinks/Week Comments No 0 (1 standard drink = 0.6 oz pur e alcohol) PHQ-2 Answer Date Recorded PHQ-2 Score 0 12/19/2018 Comments No Sex and Gender Information Value Date Recorded Sex Assigned at Not on file Legal Sex Female 4:03 AM ANESTHESIOLOGY TEACHER Gender Identity Not on file Sexual Orientation Not on file documented as of this encounter Miscellaneous Notes * Telephone Encounter - Lesly Huizar RN - 10/14/2019 9:04 AM CDT Last visit 10/26/18 no upcoming appointment available. Refill request for Anoro received from pharmacy. Rx pended for approval. * Telephone Encounter - Milena Spaulding LPN - 10/14/2019 9:03 AM CDT Received from pharmacy Last Office appointment with Dr Appiah was 10/26/2018 and next appointment is not found Refills for this medications requested Requested Prescriptions Pending Prescriptions Disp Refills ??? ANORO ELLIPTA 62.5-25 MCG/INH AEROSOL POWDER, BREATH ACTIVATED [Pharmacy Med Name: ANORO ELLIPTA 62.5-25 MCG INH] 3 Sig: TAKE 1 PUFF BY MOUTH EVERY DAY documented in this encounter Plan of Treatment Upcoming Encounters Date Type Department Care Team (Late st Contact Info) Description 07/19/2024 10:00 AM CDT Ancillary Procedure [facility] [address] [phone] 07/19/2024 10:30 AM CDT Office Visit [facility] [address] [phone] Agustin Brody MD [address] [place] [phone] 04/26/2025 10:00 AM ANESTHESIOLOGY TEACHER Ancillary Procedure [facility] [address] [phone] documented as of this encounter Visit Diagnoses Not on filedocumented in this encounter Additional Health Concerns Assessment Noted Time PHQ-9 Depression Total Score: 0 06/16/19 19 2:23 PM CDT documented as of this encounter Care Teams Crotch Breaker Relationship Specialty [place] [address] [place] [address] [place] [address] PCP - General Family Medicine 09/28/19 07/26/20 Chris Kilgore MD [address] [place] [address] [place] [address] PCP - General Internal Medicine 07/27/20 [place] [address] [place] [address] Family Medicine 07/27/20 07/02/21 Little Marks, SALESPERSON NEW CARS, ACQUISITION MANAGER [address] [place] [address] Nurse Practitioner Certified Nurse Practitioner 09/08/12 07/02/21 Kwasi Appiah MD [address] [place] [address] Consulting Physician Pulmonary Disease 12/10/16 Agustin Brody MD [address] [place] [address] Consulting Physician Oncology 07/27/20 documented as of this encounter
--- OUTSIDE RECORDS SUMMARY | 2024-06-16 12:37 | XMS_ITS | Encounter Summary ---
Author Organization [facility] Address [address] [place] [address] Phone Care Team Providers Care Coater Hand Name Role Phone Chris Kilgore MD Primary Care Provider [phone] Kwasi Appiah MD Unavailable Agustin Brody MD Unavailable [phone] Reason for Visit * Reason Comments Medication Refill Encounter Details Date Type Department Care Team (Late st Contact Info) Description 06/11/2022 Refill [facility] [address] [place] [address] Agustin Brody MD [address] [place] [address] Medication Refill Social History Tobacco Use Types Packs/Day Years Used Date Smoking Tobacco: Former Cigarettes 1 44 1 966 - 2010 Smokeless Tobacco: Never Comments:currently using e c [...] on file Legal Sex Female 4:03 AM WIRE MILL ROVER Gender Identity Not on file Sexual Orientation Not on file Occupation Industry Job Start Date Job End Date retired Not on file Not on file Not on file documented as of this encounter Miscellaneous Notes * Telephone Encounter - Agustin Brody MD - 06/12/2022 11:28 AM WIRE MILL ROVER No us MILL ROVER * Telephone Encounter - Sonya Shine, RN - 06/12/2022 8:28 AM WIRE MILL ROVER Refill request from pharmacy. Please fill if appropriate. MILL ROVER documented in this encounter Plan of Treatment Upcoming Encounters Date Type Department Care Team (Late st Contact Info) Description 07/19/2024 10:00 AM CDT Ancillary Procedure [facility] [address] [phone] 07/19/2024 10:30 AM CDT Office Visit [facility] [address] [phone] Agustin Brody MD [address] [place] [phone] 04/26/2025 10:00 AM WIRE MILL ROVER Ancillary Procedure [facility] [address] [phone] documented as of this encounter Visit Diagnoses Diagnosis Malignant neoplasm of lower lobe, left bronchus or lung (HCC) documented in this encounter Additional Health Concerns Assessment Noted Time PHQ-9 Depression Total Score: 0 01/18/20 9:59 AM CDT documented as of this encounter Care Teams Coater Hand Relationship Specialty Start Date End Date Chris Kilgore MD [address] [place] [address] PCP - General Internal Medicine 07/27/20 Kwasi Appiah MD [address] [place] [address] Consulting Physician Pulmonary Disease 12/10/16 Agustin Brody MD [address] [place] [address] Consulting Physician Oncology 07/27/20 documented as of this encounter
--- OUTSIDE RECORDS SUMMARY | 2024-06-16 12:37 | XMS_ITS | Encounter Summary ---
Author Organization [facility] Address [address] [place] [address] Phone Care Team Providers Care Monitor Car Operator Name Role Phone Chris Kilgore MD Primary Care Provider Farhan Varner MD Unavailable [phone] Marks APRN, SEARCH ADVERTISING STRATEGIST Unavailable Kwasi Appiah MD Unavailable Agustin Brody MD Unavailable Reason for Visit * Reason Comments Medication Refill Encounter Details Date Type Department Care Team (Late st Contact Info) Description 11/21/2020 Refill [facility] [address] [phone] Carolyn Rodrigues, PAC Medication Refill Social History Tobacco Use Types Packs/Day Years Used Date Smoking Tobacco: Former Cigarettes Q uit: 2010 Smokeless Tobacco: Never Alcohol Use Standard Drinks/Week Comments Not Currently 0 (1 standard drink = 0.6 oz pur e alcohol) PHQ-2 Answer Date Recorded PHQ-2 Score 0 12/19/2018 Sexually Active Control Partners Comments Not Currently Comments No Sex and Gender Information Value Date Recorded Sex Assigned at Not on file Legal Sex Female 4:03 AM LINE CONSTRUCTION ENGINEER Gender Identity Not on file Sexual Orientation [...] Encounter - Agustin Brody MD - 11/22/2020 2:38 PM CDT Ok to fill * Telephone Encounter - Lori Hussein RMA - 11/22/2020 2:34 PM CDT Pharmacy refill request. Please refill if appropriate. Thanks! documented in this encounter Plan of Treatment Upcoming Encounters Date Type Department Care Team (Late st Contact Info) Description 07/19/2024 10:00 AM CDT Ancillary Procedure [facility] [address] [phone] 07/19/2024 10:30 AM CDT Office Visit [facility] [address] [phone] Agustin Brody MD [address] [place] [phone] 04/26/2025 10:00 AM LINE CONSTRUCTION ENGINEER Ancillary Procedure [facility] [address] [phone] documented as of this encounter Visit Diagnoses Not on filedocumented in this encounter Additional Health Concerns Assessment Noted Time PHQ-9 Depression Total Score: 0 11/21/19 21 8:35 AM CDT documented as of this encounter Care Teams Monitor Car Operator Relationship Specialty Start Date End Date Chris Kilgore MD [address] [place] [address] PCP - General Internal Medicine 07/27/20 [place] [address] [place] [address] Family Medicine 07/27/20 07/02/21 Little Marks, DEPUTY SHERIFF BAILIFF, SEARCH ADVERTISING STRATEGIST [address] [place] [address] Nurse Practitioner Certified Nurse Practitioner 09/08/12 07/02/21 Kwasi Appiah MD [address] [place] [address] Consulting Physician Pulmonary Disease 12/10/16 Agustin Brody MD [address] [place] [address] Consulting Physician Oncology 07/27/20 documented as of this encounter
--- OUTSIDE RECORDS SUMMARY | 2024-06-16 12:37 | XMS_ITS | Clinical Summary ---
Author Organization [facility] Address [address] 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
--- OUTSIDE RECORDS SUMMARY | 2024-06-16 12:37 | XMS_ITS | Encounter Summary ---
Author Organization [facility] Address [address] [place] [address] Phone Care Team Providers Care Hair Baler Name Role Phone Chris Kilgore MD Primary Care Provider [phone] Kwasi Appiah MD Unavailable Agustin Brody MD Unavailable [phone] Reason for Visit * Reason Comments Medication Refill Encounter Details Date Type Department Care Team (Late st Contact Info) Description 07/01/2022 [address] [facility] [address] [place] [address] Agustin Brody MD [address] [place] [address] Medication Refill Social History Tobacco [...] on file Legal Sex Female 4:03 AM HISTORIOGRAPHER Gender Identity Not on file Sexual Orientation Not on file Occupation Industry Job Start Date Job End Date retired Not on file Not on file Not on file documented as of this encounter Miscellaneous Notes * Telephone Encounter - Sonya Shine RN - 07/01/2022 3:11 PM CDT Refill request from pharmacy. Please fill if appropriate. documented in this encounter Plan of Treatment Upcoming Encounters Date Type Department Care Team (Late st Contact Info) Description 07/19/2024 10:00 AM CDT Ancillary Procedure [facility] [address] [phone] 07/19/2024 10:30 AM CDT [facility] Visit [facility] [address] [phone] Agustin Brody MD [address] [place] [phone] 04/26/2025 10:00 AM HISTORIOGRAPHER Ancillary Procedure [facility] [address] [phone] documented as of this encounter Visit Diagnoses Not on filedocumented in this encounter Additional Health Concerns Assessment Noted Time PHQ-9 Depression Total Score: 0 01/18/20 9:59 AM CDT documented as of this encounter Care Teams Hair Baler Relationship Specialty Start Date End Date Chris iKlgore MD [address] [place] [address] PCP - General Internal Medicine 07/27/20 Kwasi Appiah MD [address] [place] [address] Consulting Physician Pulmonary Disease 12/10/16 Agustin Brody MD [facility] [place] [address] Consulting Physician Oncology 07/27/20 documented as of this encounter
--- NOTE | 2024-06-16 12:47 | ED.CHESTPAIN ---
HPI - Chest Pain General Chief Complaint: Chest Pain Stated Complaint: chest pain Time Seen by Provider: 06/16/24 11:51 Source: patient Mode of arrival: ambulatory Limitations: no limitations History of Present Illness HPI narrative: Patient is a 73 y/o female, with PMH of COPD, who presents to the ED with c/o CP. Patient reports she developed pain throughout her chest around 10:00 a.m. this morning. Present diffusely across her anterior chest. Lasted for approximately 1 hour before resolving. Patient denies current pain. Denies any aggravating or relieving factors to the pain. Denied aggravation with exertion. Denies aggravation with deep breathing. She did have a similar episode of pain yesterday which resolved on its own. Denied feeling short of breath worse than usual. Denies worsening cough. Denies pain or swelling in legs. Denies fevers. Denies abdominal pain. Related Data Home Medications ?Medication ?Instructions ?Recorded ?Confirmed ?Last Taken ?Type umeclidinium 62.5 mcg-vilanterol 1 inh inhalation DAILY 05/17/21 05/17/21 Unknown History 25 mcg/actuation powdr for inhalation (Anoro Ellipta) Allergies Allergy/AdvReac Type Severity Reaction Status Date / Time No Known Allergies Allergy Verified 06/16/24 11:14 Review of Systems Review of Systems: All systems reviewed & are unremarkable except as noted in HPI. All systems reviewed & are unremarkable except as noted in HPI and below [facility] Social History Social History Smoking status: Never smoker Alcohol intake: never Substance use: never Exam Narrative: GENERAL: Well appearing, obese with BMI of 32.2, non-toxic, in no acute distress. HEAD: Normocephalic, atraumatic. RESPIRATORY: Airway patent, respirations nonlabored. Clear to auscultation bilaterally, no rales, rhonchi, wheezing. CARDIOVASCULAR: Regular rate and rhythm without murmurs, rubs, or gallops. ABDOMINAL: Soft, nontender, nondistended. Normoactive BS. MUSCULOSKELETAL: Moves all extremities. No gross deformities. No peripheral edema. No calf tenderness. SKIN: Warm, dry, normal color. NEURO: A&O X3. Speech clear. PSYCHIATRIC: Appropriate mood and affect. Normal interaction. Course Vital Signs Vital signs: Vital Signs Temperature 97.7 F 06/16/24 11:00 Pulse Rate 82 06/16/24 11:00 Respiratory Rate 20 06/16/24 11:00 Blood Pressure 126/56 L 06/16/24 11:00 Pulse Oximetry 95 06/16/24 11:00 Oxygen Delivery Room Air 06/16/24 11:00 Temperature 97.7 F 06/16/24 11:00 Pulse Rate 81 06/16/24 15:58 Respiratory Rate 18 06/16/24 15:58 Blood Pressure 130/64 06/16/24 15:58 Pulse Oximetry 98 06/16/24 15:58 Oxygen Delivery Room Air 06/16/24 11:00 MDM - Chest Pain MDM Narrative Medical decision making narrative: EKG is w/o concerning ischemic changes. Does have some T-wave inversions in V1 and V2. No records to compare to. Baseline troponin undetectable CXR is clear Patient is denying any shortness of breath, pleuritic pain, pain or swelling in legs. Low suspicion for PE. Basic laboratory studies are fairly unremarkable. Normal leukocytosis and H&H. Stable electrolytes. Stable kidney function. 3 hour troponin also undetectable. Patient denies any ongoing pain. HEART score = 3, based on age, BMI, HLD Discussed lab and imaging findings, overall reassuring workup with patient. Feel she is safe for discharge home. Discussed following up with Cardiology as an outpatient for potential outpatient stress testing. Patient in agreement with this plan. She does feel comfortable going home. She would prefer to go home. Discussed very strict return precautions. Patient voiced understanding. Discharged in stable condition. Medical Records Data Attestation: I reviewed the patient's medical records. Lab Data Attestation: I reviewed the patient's lab results. 06/16/24 11:32 06/16/24 13:02 Labs: Lab Results 06/16/24 06/16/24 06/16/24 Range/Units 11:32 13:02 15:23 WBC 7.3 (4.5-10.0) K/mm3 RBC 4.17 L (4.2-5.4) M/mm3 Hgb 12.9 (12.0-15.0) g/dL Hct 38.5 (37.0-47.0) % MCV 92.3 (80-100) fl MCH 30.9 (26-34) pg MCHC 33.5 (32-36) g/dl RDW 13.1 (11.5-14.5) % Plt Count 301 (150-375) k/mm3 MPV 9.3 (7.4-10.4) fl Immature Gran % (Auto) 0.3 (0-0.5) % Neut % (Auto) 71.7 (45.5-73.1) % Lymph % (Auto) 17.7 L (18.3-44.2) % [place] % (Auto) 4.6 (2.6-8.5) % Eos % (Auto) 5.0 H (0-4.4) % Baso % (Auto) 0.7 (0.2-1.2) % Lymph # (Auto) 1.30 (0.9-3.2) K/mm3 [place] # (Auto) 0.3 (0.1-0.6) K/mm3 Eos # (Auto) 0.4 H (0-0.3) K/mm3 Baso # (Auto) 0.1 (0.0-0.1) K/mm3 Abs Immat Gran (auto) 0.02 (0.00-0.031) K/mm3 Absolute Neuts (auto) 5.3 (1.3-6.7) K/mm3 Absolute Nucleated RBC 0.000 (0.0-0.012) K/mm3 Nucleated RBC % 0.0 (0.0-0.2) % PT 13.0 (11.1-14.7) Seconds INR 0.9 APTT 26.3 (22.3-36.8) Seconds Sodium 140 (137-145) mmol/L Potassium 4.3 (3.4-5.0) mmol/L Chloride 105 (98-107) mmol/L Carbon Dioxide 28 (22-30) mmol/L Anion Gap 7 (4-12) mmol/L BUN 10 (7-17) mg/dL Creatinine 0.77 (0.7-1.0) mg/dL Estim Creat Clear Calc 57 ml/min Estimated GFR > 60 (59 - ) Glucose 102 (65-110) mg/dL Calcium 8.9 (8.4-10.2) mg/dL Total Bilirubin 0.6 (0.2-1.3) mg/dL AST 24 (14-36) U/L ALT 13 (6-35) U/L Alkaline Phosphatase 113 (38-126) U/L Troponin I < 0.012 < 0.012 (0.000-0.034) ng/mL Total Protein 7.0 (6.3-8.2) g/dL Albumin 3.9 (3.5-5.1) g/dL Lipase 54 (23-300) U/L Imaging Data Attestation: I personally reviewed and interpreted this imaging study as follows: Radiologist's impression: ITS Impressions Chest X-Ray 06/16/24 12:40 IMPRESSION: No focal infiltrate or effusion. ECG Data EKG #1: Attestation: I personally reviewed and interpreted this ECG as follows: ECG completion date: 06/16/24 ECG completion time: 11:07 EKG Interpretation: normal rate (78), sinus rhythm and non-specific ST changes (T wave inversions in V1/V2) Discharge Plan Discharge Clinical Impression: Atypical chest pain Patient Disposition: Home, Self-Care Condition: Stable Instructions: Antibiotic Form, Angina (ED), Chest Pain (ED) Additional Instructions: Your workup here was reassuring. Follow-up with primary care doctor and Cardiology for further evaluation and potential outpatient stress testing. Return to the ED if you experience recurrent chest pain, difficulty breathing or feeling increasingly short of breath, unable to keep down food or drink, pain or swelling in legs, or any other symptoms of concern. Patient Language: Chinese Prescriptions: No Action Anoro Ellipta 62.5-25 mcg/actuation blister with device 1 inh inhalation DAILY Follow-up/Referrals: Robin Cedeno MD [Physician] - (CARDIOLOGY) UNKNOWN,DOCTOR [Primary Care Provider] - Time of Disposition: 15:47 Quality HEART score for chest pain patients History: slightly suspicious ECG: normal Age: > or = to 65 years Risk factors: 1 or 2 risk factors Troponin: < or = to 1x normal limit Heart score: 3
--- OUTSIDE RECORDS SUMMARY | 2024-06-16 13:36 | XMS_ITS ---
Author Organization [facility] Address [address], [place] [address] [place] [address] Phone Care Team Providers Care Residential Support Worker Name Role Phone Chris Kilgore MD Primary Care Provider [phone] Kwasi Appiah MD Unavailable Agustin Brody MD Unavailable [phone] Active Problems Problem Noted Date Diagnosed Date [...]
--- OUTSIDE RECORDS SUMMARY | 2024-06-16 13:36 | XMS_ITS | Encounter Summary ---
Author Organization [facility] Address [address] [place] [address] Phone Care Team Providers Care Dance Studio Manager Name Role Phone Farhan Varner MD Primary Care Provider Chris Kilgore MD Primary Care Provider [phone] Farhan Varner MD Unavailable [phone] Little Marks MATERIALS ASSISTANT, FOOD STYLIST Unavailable [phone] Kwasi Appiah MD Unavailable Agustin Brody MD Unavailable Reason for Visit * Reason Comments Medication Refill Encounter Details Date Type Department Care Team (Late st Contact Info) Description 10/14/2019 Refill [facility] [address] [place] [address] Kwasi Appiah MD [address] [place] [address] Medication Refill Social History Tobacco [...] on file Legal 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 Gender Identity Not on file Sexual Orientation [...] CDT Ancillary Procedure [facility] [address] [phone] 07/19/2024 10:30 AM CDT Office Visit [facility] [address] [phone] Agustin Brody MD [address] [place] [phone] 04/26/2025 10:00 AM SECURITY OFFICER Ancillary Procedure [facility] [address] [phone] documented as of this encounter Visit Diagnoses Not on filedocumented in this encounter Additional Health Concerns Assessment Noted Time PHQ-9 Depression Total Score: 0 06/16/19 19 2:23 PM CDT documented as of this encounter Care Teams Dance Studio Manager Relationship Specialty [place] [address] [place] [address] PCP - General Family Medicine 09/28/19 07/26/20 Chris Kilgore MD [address] [place] [address] [place] [address] PCP - General Internal Medicine 07/27/20 [place] [address] [place] [address] Family Medicine 07/27/20 07/02/21 Little Marks, MATERIALS ASSISTANT, FOOD STYLIST [address] [place] [address] Nurse Practitioner Certified Nurse Practitioner 09/08/12 07/02/21 Kwasi Appiah MD [address] [place] [address] Consulting Physician Pulmonary Disease 12/10/16 Agustin Brody MD [address] [place] [address] Consulting Physician Oncology 07/27/20 documented as of this encounter
--- OUTSIDE RECORDS SUMMARY | 2024-06-16 13:36 | XMS_ITS | Encounter Summary ---
Author Organization [facility] Address [address] [place] [address] Care Team Providers Care Porter [employer] Name Role Phone Bekah West [facility] Primary Care Provid er Encounter Details [...] from your doctor or pharmacy? Never 05/26/2024 [facility] Utilities Answer Date Recorded In the past 12 months has [facility] [employer], gas, oil, or water [employer] threatened to shut off services in your [...] How often do you attend chur or latter-day services? 1 to 4 times per year 05/26/2024 Do you belong to any clubs o r organizations such as synagogue groups, unions, fraternal or athletic groups, or [...] Recorded Patient Health Questionnaire-2 Score 0 06/10/2024 [facility] - Occupational Stress [...] place to sleep or slept in a alf (including now)? No 07/09/2022 Housing Stability Vital [...] time in the past 12 m [facility], were you homeless or living in a alf (including now)? No 05/26/2024 Comments No Sex [...] Assessment Author Status No 05/26/2024 2:39 PM WOUND TREATMENT RN Maynor Chu RN Active * Do you [...] Date Author Status No 05/26/2024 2:39 PM WOUND TREATMENT RN Maynor Chu RN Active documented in this encounter Plan of Treatment Upcoming Encounters Date Type Department Care Team (Late st Contact Info) Description 08/03/2024 1:00 PM CDT Office Visit [facility] [address] [phone] Chris Kilgore MD [address] [place] [address] 04/26/2025 11:30 AM WOUND TREATMENT RN Appointment [facility] Radiation Oncology [address] [place] [address] Joseph Liz MD [address] [place] [address] [place] [address] documented as of this encounter Goals Goal [...] Total Score: 2 06/03/19 23 10:09 AM WOUND TREATMENT RN documented as of this encounter Care Teams [employer] Relationship Specialty Start Date End Date Bekah West FNP- [address] [place] [address] PCP - General Nurse Practitioner Family 05/07/23 documented as of this encounter
--- OUTSIDE RECORDS SUMMARY | 2024-06-16 13:36 | XMS_ITS | Encounter Summary ---
Author Organization [facility] Address [address] [place] [address] Care Team Providers Care Muff Winder Name Role Phone Radha Trujillo MD Primary Care Provider [phone] Javon Alex MD Unavailable Jennifer Monique NP Primary Care Provider [phone] [facility] Provid er Encounter Details Date Type Department Care Team (Late st Contact Info) Description 08/17/2020 Prep for Procedure [facility] Day [facility] [address] [place] [address] Luba Olivarez MD [address] [place] [address] Social History Tobacco Use Types Packs/Day Years [...] Description 08/03/2024 1:00 PM CDT [facility] [address] [phone] Chris Kilgore MD [address] [place] [address] 04/26/2025 11:30 AM SOIL CHECKER Appointment [facility] Radiation Oncology [address] [facility] [place] [address] Joseph Liz MD [address] [place] [address] documented as of this encounter Results * MRSA SCREENING (08/21/2020 10:05 AM CDT) SPEC DESCRIPTION NASAL 08/21/2020 9:50 AM CDT [facility] SPECIAL REQUESTS NO SPECIAL REQUEST 08/21/2020 9:50 AM CDT [facility] CULTURE RESULT NO METHICILLIN RESISTANT STAPH AUREUS ISOLATED 08/22/2020 11:01 AM CDT [facility] SPECIMEN FROM INTERNAL NOSE / Unknown 08/21/2020 10:05 AM CDT 08/21/2020 10:07 AM CDT us Luba Olivarez MD MICROBIOLOGY - GENERAL ORDER AURELIO Final Result [facility] [address] [place] [address], documented in this encounter Visit Diagnoses Diagnosis Pre-op testing- Primary Preoperative examination, unspecified documented in this encounter Additional Health Concerns Infection Onset Date Last Indicated Resolved Time COVID-19 Rule Out 08/21/2020 08/21/2020 08/21/2020 10:00 AM CDT COVID-19 Rule Out 08/21/2020 08/21/2020 08/22/2020 2:57 PM CDT COVID-19 Rule Out 03/10/2021 03/10/2021 03/11/2021 10:58 AM SOIL CHECKER COVID-19 Rule Out 07/01/2022 07/01/2022 07/01/2022 6:21 PM CDT COVID-19 Rule Out 07/08/2022 07/08/2022 07/08/2022 10:28 AM CDT COVID-19 Rule Out 07/25/2023 07/25/2023 07/25/2023 8:02 AM CDT documented as of this encounter Care Teams Muff Winder Relationship Specialty Start Date End Date Radha Trujillo MD PCP - General INTERNAL MEDICINE 08/13/19 07/11/22 [place] [address] [address], [address] [place] [address] PCP - General Nurse Practitioner Family 07/12/2204/09 Bekah West FNP- [address] [place] [address] PCP - General Nurse Practitioner Family 05/07/23 Javon Alex MD [address] [address] Consulting Physician GASTROENTEROLOGY 08/02/21 09/01/22 documented as of this encounter
--- OUTSIDE RECORDS SUMMARY | 2024-06-16 13:36 | XMS_ITS | Encounter Summary ---
Author Organization [facility] Address [address] [place] [address] Care Team Providers Care Commercial Leasing Manager Name Role Phone Radha Trujillo MD Primary Care Provider [phone] Javon Alex MD Unavailable Jennifer Monique NP Primary Care Provider [phone] [facility] Primary Care Provid er Encounter Details Date Type Department Care Team (Late st Contact Info) Description 10/31/2021 Prep for Procedure [facility] General Surgery [address], [facility] [address] [place] [address] Luba Olivarez MD [address] [address] Social History Tobacco Use Types [...] Description 08/03/2024 1:00 PM CDT Office Visit [facility] [address] [phone] Chris Kilgore MD [address] [place] [address] 04/26/2025 11:30 AM OPERATIONS LEADER Appointment [facility] Radiation Oncology [address] [facility] [place] [address] Joseph Liz MD [address] [place] [address] [place] [address] documented as of this encounter Visit [...] documented as of this encounter Care Teams Commercial Leasing Manager Relationship Specialty Start Date End Date Radha Trujillo MD PCP - General INTERNAL MEDICINE 08/13/19 07/11/22 [place] [address] [address], [address] [place] [address] PCP - General Nurse Practitioner Family 07/12/2204/09 Bekah West, [facility] [address] [place] [address] PCP - General Nurse Practitioner Family 05/07/23 Javon Alex MD [address] [id number] Consulting Physician GASTROENTEROLOGY 08/02/21 09/01/22 documented as of this encounter
--- OUTSIDE RECORDS SUMMARY | 2024-06-16 13:36 | XMS_ITS | Encounter Summary ---
Author Organization [facility] Address [address] [place] [address] Care Team Providers Care Equipment Maint Tech Name Role Phone Unavailable Primary Care Provider Unavailabl e Encounter Details Date Type Department Care Team (Late st Contact Info) Description 07/14/2002 Outpatient Historical [facility] [address] [place] [address] Markell Nguyễn MD [address] [facility] [address] [place] [address] Social History Tobacco Use Types Packs/Day Years Used Date Smoking Tobacco: Never Assessed Comments Unknown Sex and Gender Information Value Date Recorded Sex Assigned at Not on file Legal Sex Female 4:08 AM GASTROENTEROLOGY NURSE PRACTITIONER Gender Identity Not on file Sexual Orientation Not on file documented as of this encounter Plan of Treatment Not on file documented as of this encounter Visit Diagnoses Not on filedocumented in this encounter
--- OUTSIDE RECORDS SUMMARY | 2024-06-16 13:36 | XMS_ITS | Clinical Summary ---
Author Organization [facility] Address [facility] [place] [address] Care Team Providers Care Athletic Equipment Custodian Name Role Phone [facility] Primary Care Provid er Allergies No known active allergies Medications albuterol sulfate HFA 108 (90 Base) MCG/ACT inhaler Inhale 2 puffs into the lungs every 6 (six) hours as needed for Wheezing. 18 g 08/01/19 24 Active umeclidinium-vilan terol (ANORO ELLIPTA) 62.5-25 MCG/ACT inhalerIndications :Chronic obstructive pulmonary disease, unspecified COPD type ([facility]) Inhale 1 puff into the lungs daily. [...] Date Diagnosed Date Acute CVA (cerebrovascular accident) ([facility]) 05/26/2024 Chest pain 08/23/2023 COPD exacerbation ([facility]) 07/26/2023 COPD with acute exacerbation ([facility]) 0 07/25/2023 Overweight (BMI 25.0-29.9) 06/03/2022 At [...] of lowe r lobe of left lung ([facility]) 08/17/2020 Malignant neoplasm of left l cathy, unspecified part of lung ([facility]) 08/16/2020 Lung nodule 07/18/2020 Cigarette nicotine dependence in remission 01/17 COPD (chronic obstructive pu lmonary disease) ([facility]) 09/08/2012 Resolved Problems Problem Noted Date Diagnosed Date Resolved Date COPD exacerbation ([facility]) 07/08/2022 01/21/2023 Sepsis ([facility]) 07/01/2022 Vertigo 06/04/2022 01/21/2023 Chest pain in [...] Department Care Team Description 06/10/2024 1:00 PM STONE POLISHER MACHINE Office Visit [address] [phone] Bekah West FNP- Follow Up (6 month /Skin tag removal ) 06/10/2024 Scan [email or web address] SRVCS Scanned, [facility] 06/10/2024 Travel 06/03/2024 Patient Outreach [address] [phone] Roz Kurtz MA Pre-visit Gap Closure 05/26/2024 11:52 AM STONE POLISHER MACHINE - 05/27/2024 9:58 AM STONE POLISHER MACHINE Emergency [facility] Med/Surg [address] [place] [address] Jaky Christy MD Harris, Michael, MD Dizziness Discharge Disposition: Home or Self Care (Routine Discharge) 05/26/2024 Travel 05/10/2024 Scan [facility] SRVCS Scanned, [facility] 04/13/2024 9:56 AM STONE POLISHER MACHINE - 04/13/2024 11:59 PM STONE POLISHER MACHINE Hospital Encounter [facility] Radiation Oncology [address] [place] [address] [place] [address] Joseph Duenas MD Follow Up Discharge Disposition: Home or Self Care (Routine Discharge) 04/13/2024 Travel 04/08/2024 1:07 PM STONE POLISHER MACHINE - 04/08/2024 11:59 PM STONE POLISHER MACHINE Hospital Encounter [place] [address] [place] [address] Joseph Duenas MD Discharge Disposition: Home or Self Care (Routine Discharge) 04/08/2024 Travel from Last 3 Months Immunizations Name Administration Dates Next Due PFIZER COVID-19 (ORIGINAL FO RMULATION, PURPLE CAP) mRNA, LNP-S, PF, 30 MCG/0.3 ML DOSE 01/10/2021,07/01/2020,06/06/2020 Zoster (Zostavax) 20084 Unt/0.65Ml 11/30/2012 Family History Medical History Relation [...] from your doctor or pharmacy? Never 05/26/2024 [facility] Utilities Answer Date Recorded In the past 12 months has th e [employer], gas, oil, or water [employer] threatened to shut off services in your [...] often do you attend chur ch or taoism services? 1 to 4 times per year 05/26/2024 Do you belong to any clubs o r organizations such as congregation groups, unions, fraternal or athletic groups, or [...] Recorded Patient Health Questionnaire-2 Score 0 06/10/2024 [facility] Occupational Stress Questionnaire Answer [...] any time in the past 12 m [employer] [place], were you homeless or living in a [...] Comments Blood Pressure 120/80 06/10/2024 1:04 PM STONE POLISHER MACHINE Pulse 76 06/10/2024 1:04 PM STONE POLISHER MACHINE Temperature 36.1 C (97 F) 06/10/2024 1:04 PM STONE POLISHER MACHINE Respiratory Rate 22 06/10/2024 1:04 PM STONE POLISHER MACHINE Oxygen Saturation 93% 06/10/2024 1:04 PM STONE POLISHER MACHINE Inhaled Oxygen Concentration - - Weight 80.5 kg (177 lb 6.4 oz) 06/10/2024 1:04 P M STONE POLISHER MACHINE Height 157.5 cm (5' 2 ) 06/10/2024 1:04 PM STONE POLISHER MACHINE Body Mass Index 32.45 06/10/2024 1:04 PM STONE POLISHER MACHINE Plan of Treatment Upcoming Encounters Date Type Department Care Team (Late st Contact Info) Description 08/03/2024 1:00 PM CDT Office Visit [facility] Pulmonology Specialty Clinic [facility] [address] [place] [phone] Chris Kilgore MD 3rd [facility] [place] [address] 04/26/2025 11:30 AM STONE POLISHER MACHINE Appointment [facility] Radiation Oncology [address] [place] [address] Joseph Duenas MD [address] [place] [address] [place] [id number] Health Maintenance Due Date Last Done [...] 2024 Hepatitis C Completed 01/29/2023 PHQ-2 (Physician [place]) Completed 06/10/2024 Meningococcal B Vaccine Aged Out [...] Cody RN Medical Devices Implanted Type Area Transportation Consultant Device Identifier Shelf Expiration Date Model / Serial / Lot Port Implantable Infusion Powerport Isp Airguard Chronoflex Titanium 8fr 1 Lumen Attachable Catheter Intermediate Kit Open Suture Plug Sterile Latex Free - [id number] Implanted:Qty: 1 on 08/24/2020 by Luba Olivarez MD at [facility] Port Right: Chest Clue App [employer] 06/04/2021 [id number] / / [id number] Procedures Procedure Name Priority Date/Time Associated Diagnosis Comments SKIN TAG REMOVAL Routine 06/10/2024 1:00 PM STONE POLISHER MACHINE Skin tag LIPID PANEL Routine 05/27/2024 5:37 AM STONE POLISHER MACHINE THYROID STIM HORMONE TSH Routine 05/27/2024 5:37 AM STONE POLISHER MACHINE HEMOGLOBIN, GLYCOSYLATED Routine 05/27/2024 5:37 AM STONE POLISHER MACHINE MAGNESIUM Routine 05/27/2024 5:37 AM STONE POLISHER MACHINE BASIC METABOLIC PANEL Routine 05/27/2024 5:37 AM STONE POLISHER MACHINE CBC W/DIFF AUTOMATED Routine 05/27/2024 5:37 AM STONE POLISHER MACHINE URINALYSIS, AUTO, COMPLETE STAT 05/26/2024 6:21 PM STONE POLISHER MACHINE MRI BRAIN WO CON STAT 05/26/2024 5:[address] STROKE(HEAD WO) STAT 05/26/2024 12 :56 PM STONE POLISHER MACHINE CTA HEAD+NECK STAT 05/26/2024 12:56 PM STONE POLISHER MACHINE ECG 12-LEAD STAT 05/26/2024 12:41 PM STONE POLISHER MACHINE POCT GLUCOSE - HERNANDEZ DOCKED DEVICE Routine 05/26/2024 12:12 PM STONE POLISHER MACHINE PRO-BRAIN NATRIURETIC PEPTIDE STAT 05/26/2024 11:57 AM STONE POLISHER MACHINE PROTHROMBIN TIME, VENOUS STAT 05/26/2024 11:57 AM STONE POLISHER MACHINE TROPONIN, QUANT STAT 05/26/2024 11:57 AM STONE POLISHER MACHINE COMPREHENSIVE METABOLIC PANEL STAT 05/26/2024 11:57 AM STONE POLISHER MACHINE CBC W/DIFF AUTOMATED STAT 05/26/2024 11:57 AM STONE POLISHER MACHINE MRI BRAIN WWO CON Routine 04/08/2024 3:0 4 PM STONE POLISHER MACHINE 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 Bekah West RETIREMENT SPECIALIST-BC PROCEDURES-UNRESULTE D Final Result * HEMOGLOBIN, GLYCATED (05/27/2024 5:37 AM STONE POLISHER MACHINE) HGB A1C 5.1 <5.7 % 05/27/2024 8:09 AM [facility] Comment: INCREASED RISK OF DIABETES <5.7% NON-DIABETES 5.7-6.4% INCREASED RISK FOR FUTURE DIABETES > OR = 6.5 CONSISTENT WITH DIABETES STANDARDS OF MEDICAL CARE IN DIABETES-2010 DIABETES CARE, 33(SUPP 1): S1-S61,2010 ESTIMATED AVG GLUCOSE 100 mg/dL 05/27/2024 8:09 AM [facility] 05/27/2024 5:37 AM STONE POLISHER MACHINE Myles Holder PA-C LABORATORY Final Result [facility] [address] [place] [address], * (ABNORMAL) BASIC METABOLIC PANEL (05/27/2024 5:37 AM STONE POLISHER MACHINE) GLUCOSE 110(H) 70 - 99 MG/DL 05/27/2024 6:45 AM [facility] BUN 13 7 - 18 MG/DL 05/27/2024 6:45 AM [facility] CREATININE S/P/B 0.85 0.55 - 1.02 MG/DL 05/27/2024 6:45 AM [facility] SODIUM S/P/B 141 136 - 145 MMOL/L 05/27/2024 6:45 AM [facility] POTASSIUM S/P/B 3.8 3.5 - 5.1 MMOL/L 05/27/2024 6:45 AM [facility] CHLORIDE S/P/B 102 100 - 108 MMOL/L 05/27/2024 6:45 AM [facility] CO2 27.9 21 - 32 MMOL/L 05/27/2024 6:45 AM [facility] CALCIUM S/P/B 9.3 8.5 - 10.1 MG/DL 05/27/2024 6:45 AM [facility] ANION GAP 11.1 5 - 15 MMOL/L 05/27/2024 6:45 AM [facility] BUN CREATININE RATIO 15.3 6 - 26 05/27/2024 6:45 AM [facility] GFR ESTIMATE 73(L) >90 ML/MIN/1.7 3 M2 05/27/2024 6:45 AM [facility] Comment: NOTE: eGFR is not calculated for patients <18 years of age. This is an estimated GFR calculation using the new CKD EPI creatinine equation without race and so does not require a correction factor for race. This estimated GFR should not be used for calculating drug doses. 05/27/2024 5:37 AM STONE POLISHER MACHINE us Myles Holder PA-C LABORATORY Final Result [facility] [address] [facility] [address], * (ABNORMAL) LIPID PANEL (05/27/2024 5:37 AM STONE POLISHER MACHINE) CHOLESTEROL 255(H) <200.0 MG/DL 05/27/2024 6:37 AM [facility] TRIGLYCERIDES 117 <150 MG/DL 05/27/2024 6:37 AM [facility] HDL 63 >40.0 MG/DL 05/27/2024 6:37 AM [facility] LDL (CALCULATED) 169(H) <100 MG/DL 05/27/2024 6:37 AM [facility] NON HDL CHOLESTEROL 192(H) <130 MG/DL 05/27/2024 6:37 AM [facility] CHOL/HDL RATIO 4.0 0.0 - 4.5 05/27/2024 6:37 AM [facility] VLDL CALCULATION 23 5 - 55 MG/DL 05/27/2024 6:37 AM [facility] LIPID INTERPRETATION 05/27/2024 6:37 AM [facility] Comment: [facility] REPORT RECOMMENDATIONS: ADULT CHILD LOW RISK: CHOLESTEROL <200 <170 TRIGLYCERIDE <150 --- HDL >=60 --- LDL <100 <110 BORDERLINE: CHOLESTEROL 200-239 170-199 TRIGLYCERIDE 150-199 --- HDL 40-59 --- LDL 100-159 110-129 HIGH RISK: CHOLESTEROL >=240 >=200 TRIGLYCERIDE >=200 --- HDL <40 --- LDL >=160 >=130 05/27/2024 5:37 AM STONE POLISHER MACHINE us Myles Holder PA-C LABORATORY Final Result [facility] [address] [place] [address], * (ABNORMAL) CBC W/DIFF AUTOMATED (05/27/2024 5:37 AM STONE POLISHER MACHINE) Only the most recent of2 resultswithin the time period is included. WBC 7.28 4.4 - 11.0 x10'3/uL 05/27/2024 6:19 AM [facility] RBC 4.24(L) 4.50 - 5.10 x10'6/uL 05/27/2024 6:19 AM [facility] HGB 12.9 12.3 - 15.3 G/DL 05/27/2024 6:19 AM [facility] HCT 38.5 35.9 - 44.6 % 05/27/2024 6:19 AM [facility] MCV 90.8 80.0 - 96.0 FL 05/27/2024 6:19 AM [facility] MCH 30.4 25.3 - 30.9 PG 05/27/2024 6:19 AM [facility] MCHC 33.5 31.0 - 34.1 G/DL 05/27/2024 6:19 AM [facility] RDW 13.2 12.4 - 15.1 % 05/27/2024 6:19 AM [facility] PLT 292 151 - 353 x10'3/uL 05/27/2024 6:19 AM [facility] MPV 9.5(L) 9.6 - 12.0 FL 05/27/2024 6:19 AM [facility] RBC MORPHOLOGY NORMAL 05/27/2024 6:19 AM [facility] PLT MORPH. NORMAL 05/27/2024 6:19 AM [facility] WBC MORPHOLOGY NORMAL 05/27/2024 6:19 AM [facility] LYMPHOCYTES % 23.9 15.8 - 45.0 % 05/27/2024 6:19 AM [facility] NEUTROPHILS % 63.3 42.1 - 71.9 % 05/27/2024 6:19 AM STONE POLISHER MACHINE [facility] MONOCYTES % 6.9 5.7 - 12.5 % 05/27/2024 6:19 AM [facility] EOSINOPHILS 4.7 0.0 - 5.6 % 05/27/2024 6:19 AM [facility] BASOPHILS 0.8 0.0 - 1.3 % 05/27/2024 6:19 AM [facility] ABS. NEUTROPHILS 4.61 1.40 - 6.00 x10'3/uL 05/27/2024 6:19 AM [facility] IMMATURE GRANS % 0.4 0.0 - 0.5 % 05/27/2024 6:19 AM [facility] ABS. LYMPHOCYTES 1.74 0.80 - 4.70 x10'3/uL 05/27/2024 6:19 AM [facility] 05/27/2024 5:37 AM STONE POLISHER MACHINE Myles Holder PA-C LABORATORY Final Result Performing Organization Address [facility]/ZIP Co de Phone Number [facility] [address] [place] [address], [place] [phone] * (ABNORMAL) THYROID STIM HORMONE, TSH (05/27/2024 5:37 AM STONE POLISHER MACHINE) TSH 3.749(H) 0.358 - 3.74 uIU/ML 05/27/2024 6:45 AM STONE POLISHER MACHINE [facility] Comment: HIGH DOSES OF BIOTIN MAY INTERFERE WITH THIS TEST RESULT. CORRELATION TO CLINICAL HISTORY AND PRESENTATION RECOMMENDED. 05/27/2024 5:37 AM STONE POLISHER MACHINE Myles Holder PA-C LABORATORY Final Result Performing Organization Address [facility]/ZIP Co de Phone Number [facility] [address] [place] [address], [place] [phone] * MAGNESIUM (05/27/2024 5:37 AM STONE POLISHER MACHINE) MAGNESIUM 2.0 1.8 - 2.4 MG/DL 05/27/2024 6:45 AM STONE POLISHER MACHINE [facility] 05/27/2024 5:37 AM STONE POLISHER MACHINE Myles Holder PA-C LABORATORY Final Result [facility] [address] [place] [address], [place] [phone] * Urinalysis, Auto, Complete (05/26/2024 6:21 PM STONE POLISHER MACHINE) COLOR (U) YELLOW 05/26/2024 6:43 PM [facility] TRANSPARENCY CLEAR 05/26/2024 6:43 PM [facility] SPECIFIC GRAVITY (U) 1.010 1.000 - 1.030 05/26/2024 6:43 PM [facility] U PH 7.5 5.0 - 9.0 05/26/2024 6:43 PM [facility] LEUKOCYTES (U) NEGATIVE NEGATIVE 05/26/2024 6:43 PM [facility] NITRITES NEGATIVE NEGATIVE 05/26/2024 6:43 PM [facility] PROTEIN RANDOM (U) NEGATIVE NEGATIVE 05/26/2024 6:43 PM [facility] GLUCOSE (U) NEGATIVE NEGATIVE 05/26/2024 6:43 PM [facility] KETONES MG/DL (U) NEGATIVE NEGATIVE 05/26/2024 6:43 PM [facility] BILIRUBIN (U) NEGATIVE NEGATIVE 05/26/2024 6:43 PM STONE POLISHER MACHINE [facility] BLOOD (U) NEGATIVE NEGATIVE 05/26/2024 6:43 PM STONE POLISHER MACHINE [facility] WBC/HPF NONE SEEN 0 - 5 /HPF 05/26/2024 6:43 PM STONE POLISHER MACHINE [facility] RBC/HPF 0-5 0 - 5 /HPF 05/26/2024 6:43 PM STONE POLISHER MACHINE [facility] EPI/HPF RARE /HPF 05/26/2024 6:43 PM STONE POLISHER MACHINE [facility] BACTERIA (U) RARE /HPF 05/26/2024 6:43 PM STONE POLISHER MACHINE [facility] URINE SPECIMEN OBTAINED BY CLEAN CATCH PROCEDURE / Unknown 05/26/2024 6:21 PM STONE POLISHER MACHINE us Jaky Christy MD URINE ORDERABLES Final Result Performing Organization Address City/State/[facility] Co de Phone Number [facility] [address] [place] [address], [place] [phone] * MRI BRAIN WO CON (05/26/2024 5:16 PM STONE POLISHER MACHINE) Anatomical Region Laterality Modality Head Magnetic Resonan ce 05/26/2024 5:22 PM STONE POLISHER MACHINE Impressions 05/26/2024 5:24 PM STONE POLISHER MACHINE IMPRESSION: 1. No evidence of acute infarct or intracranial mass lesion. 2. Chronic senescent changes. Referred By: Interpreted By: Tom Bello MD, 05/26/2024 5:22 PM Narrative 05/26/2024 5:24 PM STONE POLISHER MACHINE [facility] [address] [facility] [place] [address] INDICATION: Vertigo EXAMINATION: MRI of the brain [...] Procedure Note Tom Bello MD - 05/26/2024 [facility] [address] [facility] [place] [address] INDICATION: Vertigo EXAMINATION: MRI of the brain [...] * CT STROKE(HEAD WO) (05/26/2024 12:56 PM STONE POLISHER MACHINE) Anatomical Region Laterality Modality Head Computed Tomogra phy 05/26/2024 12:2 0 PM STONE POLISHER MACHINE Impressions 05/26/2024 12:22 PM STONE POLISHER MACHINE IMPRESSION: 1. No acute intracranial hemorrhage or mass effect 2. Mild atrophy and chronic small vessel ischemic changes the supratentorial white matter. MRI would be more sensitive for the detection of an acute infarct. Referred By: Interpreted By: Matty Anderson MD, 05/26/2024 12:20 PM Narrative 05/26/2024 12:22 PM STONE POLISHER MACHINE [facility] [address] [place] [address] EXAMINATION:Head CT without contrast 05/26/2024 INDICATION:Vertigo, history [...] Procedure Note Matty Anderson MD - 05/26/2024 [facility] [address] [place] [address] EXAMINATION:Head CT without contrast 05/26/2024 INDICATION:Vertigo, history [...] Result * CTA HEAD+NECK (05/26/2024 12:56 PM STONE POLISHER MACHINE) Anatomical Region Laterality Modality Head, Neck Computed Tomogra phy 05/26/2024 12:2 2 PM STONE POLISHER MACHINE Impressions 05/26/2024 12:33 PM STONE POLISHER MACHINE IMPRESSION: Head CTA: No focal intracranial stenosis, [...] 05/26/2024 12:22 PM Narrative 05/26/2024 12:33 PM STONE POLISHER MACHINE [facility] [address] [place] [address] EXAMINATION:CT angiogram of the head and neck [...] Procedure Note Matty Anderson MD - 05/26/[address] [place] [address] EXAMINATION:CT angiogram of the head and neck [...] * ECG 12 lead (05/26/2024 12:41 PM STONE POLISHER MACHINE) 05/26/2024 12:4 1 PM STONE POLISHER MACHINE Narrative [facility] ([facility]) RAD - 05/26/2024 5:14 PM STONE POLISHER MACHINE [facility] Test Date: 2024-05-26 Pat Name: LESLY CHENG Department: 85 Room: 101 Gender: Female Cupola Tender: : 1950 Requested By: JAKY CHRISTY Order Number: [id number] Reading MD: Myles Orozco Measurements Intervals [place] Rate: 78 P: 62 VA: 162 QRS: 89 QRSD: 81 T: 75 QT: 379 QTc: 432 Interpretive Statements SINUS RHYTHM Compared to ECG 08/23/2023 08:46:44 No significant changes E POLISHER MACHINE Procedure Note Myles Orozco MD - 05/26/2024 [facility] Test Date: 2024-05-26 Pat Name: LESLY CHENG Department: 85 Room: 101 Gender: Female Cupola Tender: : 1950 Requested By: JAKY CHRISTY Order Number: [id number] Reading : Myles Orozco Measurements Intervals [place] Rate: 78 P: 62 VA: 162 QRS: 89 QRSD: 81 T: 75 QT: 379 QTc: 432 Interpretive Statements SINUS RHYTHM Compared to ECG 08/23/2023 08:46:44 No significant changes E POLISHER MACHINE Jaky Christy MD ECG ORDERABLES Final Result [facility] ([facility]) RAD * POCT glucose (05/26/2024 12:12 PM STONE POLISHER MACHINE) [facility] GLUCOSE POC 94 70 - 110 mg/dL 05/26/2024 12:14 [address] [facility] () [facility] 05/26/2024 12:1 2 PM STONE POLISHER MACHINE us Jaky Christy MD POCT ORDERABLES - DEVICE Final Result [facility] [address] [place] [address], [place] [phone] * (ABNORMAL) PRO-BRAIN NATRIURETIC PEPTIDE (05/26/2024 11:57 AM STONE POLISHER MACHINE) PRO-B TYPE NATRIURETIC PEPTIDE 152(H) <125 PG/ML 05/26/2024 12:32 PM STONE POLISHER MACHINE [facility] Comment: CUT POINTS ESTABLISHED BY [...] FOR ACUTE CHF. 05/26/2024 11:5 7 AM STONE POLISHER MACHINE us Jaky Christy MD LABORATORY Final Result Performing Organization Address [facility]/ZIP Co de Phone Number [facility] [address] [place] [address], [place] [phone] * PROTIME/INR, VENOUS (05/26/2024 11:57 AM STONE POLISHER MACHINE) PROTIME 11.1 9.1 - 12.4 SEC 05/26/2024 12:16 PM STONE POLISHER MACHINE [facility] INR 1.0 05/26/2024 12:16 PM STONE POLISHER MACHINE [facility] Comment: Recommend INR ranges for Oral Anticoagulant Therapy: Mechanical Cardiac Values 2.5-3.5 All others indication 2.0-3.0 05/26/2024 11:5 7 AM STONE POLISHER MACHINE us Jaky Christy MD LABORATORY Final Result [facility] [address] [place] [address], * (ABNORMAL) COMPREHENSIVE METABOLIC PANEL (05/26/2024 11:57 AM STONE POLISHER MACHINE) GLUCOSE 102(H) 70 - 99 MG/DL 05/26/2024 12:32 PM [facility] BUN 10 7 - 18 MG/DL 05/26/2024 12:32 PM [facility] CREATININE S/P/B 0.90 0.55 - 1.02 MG/DL 05/26/2024 12:32 PM [facility] SODIUM S/P/B 138 136 - 145 MMOL/L 05/26/2024 12:32 PM [facility] POTASSIUM S/P/B 4.0 3.5 - 5.1 MMOL/L 05/26/2024 12:32 PM [facility] CHLORIDE S/P/B 98(L) 100 - 108 MMOL/L 05/26/2024 12:32 PM [facility] CO2 30.7 21 - 32 MMOL/L 05/26/2024 12:32 PM [facility] CALCIUM S/P/B 9.5 8.5 - 10.1 MG/DL 05/26/2024 12:32 PM [facility] BILIRUBIN TOTAL S/P/B 0.5 0.2 - 1.2 MG/DL 05/26/2024 12:32 PM [facility] TOTAL PROTEIN S/P/B 7.9 6.4 - 8.2 G/DL 05/26/2024 12:32 PM [facility] ALBUMIN S/P/B 4.0 3.4 - 5.0 G/DL 05/26/2024 12:32 PM [facility] AST 16 15 - 37 U/L 05/26/2024 12:32 PM [facility] ALT 17 14 - 55 U/L 05/26/2024 12:32 PM [facility] ALKALINE PHOSPHATASE S/P/B 132 50 - 136 U/L 05/26/2024 12:32 PM [facility] ANION GAP 9.3 5 - 15 MMOL/L 05/26/2024 12:32 PM [facility] BUN CREATININE RATIO 11.1 6 - 26 05/26/2024 12:32 PM [facility] A/G RATIO 1.0 1.0 - 2.0 RATIO 05/26/2024 12:32 PM [facility] GFR ESTIMATE 68(L) >90 ML/MIN/1.7 3 M2 05/26/2024 12:32 PM [facility] Comment: NOTE: eGFR is not calculated for patients <18 years of age. This is an estimated GFR calculation using the new CKD EPI creatinine equation without race and so does not require a correction factor for race. This estimated GFR should not be used for calculating drug doses. 05/26/2024 11:5 7 AM [employer] Jaky Christy MD LABORATORY Final Result [facility] [address] [place] [address], * TROPONIN, QUANT (05/26/2024 11:57 AM [employer]) TROPONIN I HIGH SENSITIVITY 7 0 - 50 ng/L 05/26/2024 12:28 PM [facility] Comment: HIGH DOSES OF BIOTIN, TROPONIN-SPECIFIC AUTOANTIBODIES, AND ANTIBODY THERAPY CONTAINING HAMA MAY INTERFERE WITH THIS TEST RESULT. CORRELATION TO CLINICAL HISTORY AND PRESENTATION RECOMMENDED. 05/26/2024 11:5 7 AM [employer] Jaky Christy MD LABORATORY Final Result [facility] [address] [place] [address], * MRI BRAIN WWO CON (04/08/2024 3:04 PM [employer]) Anatomical Region Laterality Modality Head Magnetic Resonan ce 04/12/2024 10:2 4 AM [employer] Impressions 04/12/2024 10:27 AM [employer] IMPRESSION: 1. No evidence of intracranial metastasis or interval change 2. Mild atrophy and chronic small vessel ischemic changes of the supratentorial white matter. Referred By: JOSEPH DUENAS Interpreted By: Matty Anderson MD, 04/12/2024 10:24 AM Narrative 04/12/2024 10:27 AM STONE POLISHER MACHINE [facility] [address] [facility] [place] [address] EXAMINATION:Brain MRI with and without contrast 04/08/2024 [...] Procedure Note Matty Anderson MD - 04/12/2024 [facility] [address] [place] [address] EXAMINATION:Brain MRI with and without contrast 04/08/2024 [...] CT CHEST WO CON (04/08/2024 2:05 PM STONE POLISHER MACHINE) Anatomical Region Laterality Modality Chest Computed Tomogra phy 04/12/2024 10:5 7 AM STONE POLISHER MACHINE Impressions 04/12/2024 11:03 AM STONE POLISHER MACHINE IMPRESSION: 1. Fibroatelectasis/scarring in the superior segment left lower lobe consistent with posttreatment change. 2. No new suspicious pulmonary nodule. 3. Pulmonary emphysema. Referred By: JOSEPH DUENAS Interpreted By: Delicia Bains MD, 04/12/2024 10:57 AM Narrative 04/12/2024 11:03 AM STONE POLISHER MACHINE [facility] [address] [place] [id number] EXAMINATION: CT Chest without contrast 04/08/2024 1:12 PM CLINICAL HISTORY: Left lower lobe small cell carcinoma status post TELECOMMUNICATIONS ADMINISTRATOR. Surveillance imaging. COPD. COMPARISON: CTA chest 08/23/2023, [...] Procedure Note Delicia Bains MD - 04/12/2024 [facility] [address] [place] [id number] EXAMINATION: CT Chest without contrast 04/08/2024 1:12 PM CLINICAL HISTORY: Left lower lobe small cell carcinoma status post TELECOMMUNICATIONS ADMINISTRATOR.Surveillance imaging. COPD. COMPARISON: CTA chest 08/23/2023, 07/25/2023, [...] CT Final Result * HEPATITIS C AB ([facility] ONLY) (01/29/2023 8:44 AM CDT) HEPATITIS C AB NON-REACTI VE NON-REACTI VE 01/29/2023 3:23 PM CDT [facility] 01/29/2023 8:44 AM CDT Jennifer Monique NP LABORATORY Final Result [facility] [address] [facility] [place] [address], from Last 3 Months or Most Recently Relevant to Health Maintenance Insurance [facility] Advance Directives * Full Code (Latest Code [...] 11:00 AM 07/03/2022 2:50 PM 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
--- OUTSIDE RECORDS SUMMARY | 2024-06-16 13:36 | XMS_ITS ---
Author Organization [facility] Address [address] [place] [address] Care Team Providers Care Surgical Territory Manager Name Role Phone [facility] Primary Care Provid er Active Problems Problem Noted Date Diagnosed Date Acute CVA (cerebrovascular accident) ([facility]/HCC) 05/26/2024 Chest pain 08/23/2023 COPD exacerbation ([facility]) 07/26/2023 COPD with acute exacerbation ([facility]HCC) 0 07/25/2023 Overweight (BMI 25.0-29.9) 06/03/2022 [...] of lowe r lobe of left lung ([facility]) 08/17/2020 Malignant neoplasm of left l cathy, unspecified part of lung ([facility]) 08/16/2020 Lung nodule 07/18/2020 Cigarette nicotine dependence in remission 01/17 COPD (chronic obstructive pu lmonary disease) ([facility]) 09/08/2012 Current Oncology Plans No current plan [...] of left lung, unspecified part of lung ([facility])* Images from the original note were not included. Survivorship Care Plan Patient Name Lesly Marquez Date of 1950 Plan Completed By Marah RAWLS on 11/03/20 Care Team Medical Oncologist Dr. Brody [phone] Kilgore [phone] Alonso [phone] Primary Care Physician HUMBLE BURGOS MD [phone] Bekah West [phone] Nurse Navigator Marah RAWLS [phone] Diagnosis Malignant neoplasm of left lung, unspecified [...] treatment might be helpful. According to the [place] [employer], about 20 percent of cancer [...] 01/31/2016 Last Revised: 01/30/2016 Summary of the [place] Cancer Society Guidelines on Nutrition and Physical [...] list of resources: Cancer Support Resources at [facility] https://www.[facility].org/StElizabeths/Services/Cancer-Care/Cancer-Center [facility] offers services for lifestyle management for mind-body [...] and education. Call for more information. Inpatient Director Wholesale & Case Management Services Inpatient oncology social [...] plans after treatment is complete. Call ext [phone] or ext [phone] for more information. Occupational, Speech and Physical Therapy Therapy services are helpful for cancer patients from theinitial diagnosis, through survivorship or the end stages of care. Cancer and its treatment sometimes improves physical abilities but not functional outcomes. Therapy interventions used are holistic and comprehensive. Varying services are offered at seven [facility] outpatient clinics in [facility]. Call for more information. Palliative Care, Pain [...] blood infusions, dressing changes and antibiotics. Call [phone] for more information. [facility] W[facility] The [facility] Center heals chronic, non-healing wounds. Call for more information. Wound, Ostomy, Continence Services Services range from wound care, ostomy appliance teaching and continence service for any patient needing these services. Call for more information. Resources for Cancer Support [facility] provides care for those who cannot afford to pay through its Maddie Care Program. More information is available at https://www.[facility].org/StElizabeths/Patients-Guests/Pnrkjqc-Xpwcypeeg-Zkbamcxa [facility] [employer] provides financial assistance, to those who qualify, regardless of whether aperson is insured. More information is available at www. [facility].org/Public/FinancialAssistance.aspx. [place] Department of Public Health protects the state's residents and visitors through the prevention and control of disease and injury. Website: https://www.[facility].[place].gov/topics-services/qrjzlcug-xui-ptjvvbrkob/cancer [place] [employer] is a national nonprofit organization with programs and services provided through local [place] [employer] offices, as well as its Clinical Navigation program based at [facility] Cancer [place] at [facility]. Websites: www.cancer.org and www.[facility]/cancer/navigator. html. Government Assistance Programs There are several [...] Administration on Aging Benefits for older adults. 258.161.9899 www.eldercare.gov ([employer] Brand Mgr finds resources in your community). Social Security Administration 343-038-3948 www.ssa.gov Centers for Medicare & Medicaid Services 421-649-5942 www.cms.gov National Cancer [place] www.cancer.gov Pharmaceutical Patient Assistance Programs Programs and services offered differ among drug manufacturers but may include: Help with insurance reimbursement. Referrals to co pay relief programs Help with the application process Discounted or free medications for patients who do not qualify for other assistance Partnership for Prescription Assistance (PPA) 421-7-CQY-NOW (858-326-6576) www.pparx.org Insurance Coverage www.getcovered[place].org To see if the drug company that makes your medication has a patient assistance program, check its web site, ask your doctor or check with the PPA. PPA has a list of pharmaceutical programs and other resources for financial assistance. People with cancer often need assistance with expenses like transportation, home care and child therapist. A number of nonprofit organizations have useful programs or referral information that may be able to help. Cancer Organizations CancerCare 633-520-NKXJ(7736) www.cancercare.org [place] [employer] 129-JNU-8016 www.cancer.org Leukemia & Lymphoma Society 285-996-6244 www.lls.org Lung Cancer [place] www.lungcanceralliance.org Lymphoma Research Foundation 533-682-6126 www.lymphoma.org National Marrow Donor Program 686-950-7415 www.marrow.org National Ovarian Cancer Coalition www.ovarian.org Pancreatic Cancer Action Network www.pancan.org Patient Advocate Colorectal Careline 624-185-0321 www.colorectalcareline.org Sarcoma [place] 989-469-8810 www.sarcomaalliance.org General Organizations [employer] www.ReliSen.SAVORTEX Community Organizations Check phonebook under social service agencies [place]-based Organizations Includes Generate, [employer], [employer] and others. Check phonebook for listings. Lazarex Cancer Foundation (Clinical Trial information and support) www.lazarex.org Leukemia Research Foundation www.leukemia-research.org Bladder Cancer Advocacy Network www.bcan.org Support for People with Oral Head and Neck Cancer (SPOHNC) www.spohnc.org Rose Pivot3. [facility] Breast Cancer Organization 332-157-7003 5.AndroJek.org/BreastCancer/1877GOKOMEN.html Resolved Problems Problem Noted Date Diagnosed Date Resolved Date COPD exacerbation ([facility]) 07/08/2022 01/21/2023 Sepsis ([facility]) 07/01/2022 Vertigo 06/04/2022 01/21/2023 Chest pain in [...]
--- OUTSIDE RECORDS SUMMARY | 2024-06-16 13:36 | XMS_ITS | Encounter Summary ---
Author Organization [facility] Address [address] [place] [address] Care Team Providers Care Microcomputer Technician Name Role Phone Radha Trujillo MD Primary Care Provider [phone] Javon Alex MD Unavailable Jennifer Monique NP Primary Care Provider [phone] [facility] Primary Care Provid er Encounter Details Date Type Department Care Team (Late st Contact Info) Description 10/31/2021 Prep for Procedure [facility] General Surgery [address], [facility] [address] [place] [address] Luba Olivarez MD [address] [address] Social History Tobacco Use Types [...] Description 08/03/2024 1:00 PM CDT Office Visit [facility] Pul[facility]ty Clinic [address] [address] Chris Kilgore MD [address] [place] [address] 04/26/2025 11:30 AM CEMETERY COUNSELOR Appointment [facility] Radiation Oncology [address] [facility] [place] [address] Joseph Liz MD [address] [place] [address] [place] [address] documented as of this encounter Visit [...] documented as of this encounter Care Teams Microcomputer Technician Relationship Specialty Start Date End Date Radha Trujillo MD PCP - General INTERNAL MEDICINE 08/13/19 07/11/22 [place] [address] [place] [address] PCP - General Nurse Practitioner Family 07/12/2204/09 Bekah West, [facility] [address] [place] [address] PCP - General Nurse Practitioner Family 05/07/23 Javon Alex MD [address] [id number] Consulting Physician GASTROENTEROLOGY 08/02/21 09/01/22 documented as of this encounter
--- OUTSIDE RECORDS SUMMARY | 2024-06-16 13:36 | XMS_ITS | Encounter Summary ---
Author Organization [facility] Address [address] [place] [address] Care Team Providers Care Die Maintenance Technician Name Role Phone [facility] Primary Care Provid er Reason for Visit * Reason Onset Date Comments Hospital Follow Up 08/05/2023 [facility] 07/24-07/31 Encounter Details Date Type Department Care Team (Latest Contact Info) Description 08/05/2023 Hospital Follow-up Call [facility] Care Management [address] [place] [address] Aylin Briceño RN Hospital Follow Up ([facility] 07/24-07/31) Social History Tobacco Use Types Packs/Day [...] from your doctor or pharmacy? Never 07/25/[address] [facility] Utilities Answer Date Recorded In the [...] often do you attend chur ch or yazidism services? Never 07/25/2023 Do you belong to any clubs o r organizations such as hindu groups, unions, fraternal or athletic groups, or [...] Recorded Patient Health Questionnaire-2 Score 0 07/25/2023 [facility] - Occupational Stress [...] place to sleep or slept in a fpc (including now)? No 07/09/2022 Housing Stability Vital Sign Answer Finesse e Recorded In the last 12 months, was t here a time when you were not able to pay the mortgage or rent on time? No 07/25/2023 In the past 12 months, how m any times have you moved where you were living? 0 07/25/2023 At any time in the past 12 m [facility], were you homeless or living in a fpc (including now)? No 07/25/2023 Comments No Sex [...] Description 08/03/2024 1:00 PM CDT Office Visit [facility] [address] [phone] Chris Kilgore MD [address] [place] [address] 04/26/2025 11:30 AM OPTIONS ADVISOR Appointment [facility] Radiation Oncology [address] [place] [address] Joseph Liz MD [address] [place] [address] [place] [address] documented as of this encounter Visit Diagnoses Not on filedocumented in this encounter Additional Health Concerns Assessment Noted Time PHQ-9 Depression Total Score: 2 06/03/19 23 10:09 AM OPTIONS ADVISOR documented as of this encounter Care Teams Die Maintenance Technician Relationship Specialty Start Date End Date Bekah West FNP- [address] [place] [address] PCP - General Nurse Practitioner Family 05/07/23 documented as of this encounter
--- OUTSIDE RECORDS SUMMARY | 2024-06-16 13:36 | XMS_ITS | Encounter Summary ---
Author Organization [employer] Address [address] [place] [address] Care Team Providers Care Congregational Care Pastor Name Role Phone Unavailable Primary Care Provider Unavailabl e Encounter Details Date Type Department Care Team (Late st Contact Info) Description 02/24/2003 Outpatient Historical [facility] [address] [place] [address] Markell Nguyễn MD [address] [facility] [address] [place] [address] Social History Tobacco Use Types Packs/Day Years Used Date Smoking Tobacco: Never Assessed Comments Unknown Sex and Gender Information Value Date Recorded Sex Assigned at Not on file Legal Sex Female 4:08 AM SINGING TELEGRAM PERFORMER Gender Identity Not on file Sexual Orientation Not on file documented as of this encounter Plan of Treatment Not on file documented as of this encounter Visit Diagnoses Not on filedocumented in this encounter
--- OUTSIDE RECORDS SUMMARY | 2024-06-16 13:36 | XMS_ITS | Clinical Summary ---
Author Organization [facility] Address [address], [address] [place] [address] Phone Care Team Providers Care Purification Operator Name Role Phone Chris Kilgore MD Primary Care Provider [phone] Kwasi Appiah MD Unavailable Agustin Brody MD Unavailable [phone] Allergies No known active allergies Medications ANORO [...] Description 05/11/2024 Telephone [facility] [address] [phone] Agustin Brody MD Canopy Call 05/10/2024 10:00 AM BUSINESS UNIT MANAGER Clinical Support [facility] [address] [phone] Nurse, Yanely Mosley 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) 05/10/2024 9:45 AM BUSINESS UNIT MANAGER Office Visit [facility] [address] [phone] Agustin Brody MD 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) (Primary Dx); Chronic obstructive pulmonary disease, unspecified COPD type (HCC) 05/10/2024 Telephone [facility] [address] [address] Agustin Brody MD Canopy Call / OV questions 05/10/2024 Travel 04/13/2024 10:00 AM BUSINESS UNIT MANAGER Ancillary Procedure [facility] [address] [phone] 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) 04/13/2024 Telephone [facility] [address] [phone] Joseph Liz MD 04/13/2024 Travel [...] on file Legal Sex Female 4:03 AM BUSINESS UNIT MANAGER Gender Identity Not on file Sexual Orientation Not on file Occupation Industry Job Start Date Job End Date retired Not on file Not on file Not on file Last Filed Vital Signs Vital Sign Reading Time Taken Comments Blood Pressure 116/84 05/10/2024 10:06 AM BUSINESS UNIT MANAGER Pulse 86 05/10/2024 10:06 AM BUSINESS UNIT MANAGER Temperature 36.6 C (97.8 F) 05/10/2024 10:06 AM BUSINESS UNIT MANAGER Respiratory Rate 18 05/10/2024 10:06 AM BUSINESS UNIT MANAGER Oxygen Saturation 96% 05/10/2024 10:06 AM BUSINESS UNIT MANAGER Inhaled Oxygen Concentration - - Weight 79.1 kg (174 lb 6.4 oz) 05/10/2024 10:06 AM BUSINESS UNIT MANAGER Height 157.5 cm (5' 2 ) 05/10/2024 10:06 AM BUSINESS UNIT MANAGER Body Mass Index 31.9 05/10/2024 10:06 AM BUSINESS UNIT MANAGER Plan of Treatment Upcoming Encounters Date Type Department Care Team (Late st Contact Info) Description 07/19/2024 10:00 AM CDT Ancillary Procedure [facility] [address] [address] 07/19/2024 10:30 AM CDT Office Visit [facility] [address] [address] Agustin Brody MD [address] [place] [phone] 04/26/2025 10:00 AM BUSINESS UNIT MANAGER Ancillary Procedure [facility] [address] [address] Health Maintenance Due Date Last Done Comments [...] AUTO DIFF OH Routine 05/10/2024 9:50 AM BUSINESS UNIT MANAGER 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) CMP (COMPREHENSIVE METABOLIC PANEL) Routine 05/10/2024 9:50 AM BUSINESS UNIT MANAGER 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) LACTATE DEHYDROGENASE (LD) Routine 05/10/2024 9:50 AM BUSINESS UNIT MANAGER 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) CT CHEST W/O CONTRAST Routine 04/13/2024 10:23 AM BUSINESS UNIT MANAGER 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) MARIA D SCREENING BILATERAL DIGITAL W CAD W COREY Routine 06/16/2018 2:07 PM CDT Screening for breast cancer from Last 3 Months or Most Recently Relevant to Health Maintenance Results * (ABNORMAL) CBC WITH AUTO DIFF OH (05/10/2024 9:50 AM BUSINESS UNIT MANAGER) WBC 9.0 4.0 - 10.0 10*3/uL [facility] PROJECT DEVELOPMENT ENGINE[facility] HGB 13.0 11.2 - 15.7 g/dL [facility] PROJECT DEVELOPMENT ENGINE[facility] HCT 39.0 34.1 - 44.9 % [facility] PROJECT DEVELOPMENT ENGINE[facility] PLT 270 163 - 369 10*3/uL CANC[facility] PROJECT DEVELOPMENT ENGINEER [facility] MPV 9.1(L) 9.4 - 12.4 fL [facility] PROJECT DEVELOPMENT ENGINE[facility] RBC 4.27 3.93 - 5.22 10*6/uL [facility]CER PROJECT DEVELOPMENT ENGINEER [facility] MCV 91 79 - 95 fL CANCER PROJECT DEVELOPMENT ENGINEER [facility] MCH 30.4 25.6 - 32.2 pg CANCER PROJECT DEVELOPMENT ENGINEER [facility] MCHC 33.3 32.2 - 36.5 g/dL [facility] PROJECT DEVELOPMENT ENGINEER [facility] RDW 13.2 11.6 - 14.4 % [facility] PROJECT DEVELOPMENT ENGINE[facility] Neutrophils % 75.9(H) 36.0 - 66.0 % [facility] PROJECT DEVELOPMENT ENGINE[facility] Lymphocytes % 15.1(L) 19.0 - 40.0 % [facility] PROJECT DEVELOPMENT ENGINE[facility] Monocytes % 5.0 4.1 - 12.1 % [facility] PROJECT DEVELOPMENT ENGINE[facility] Eosinophils % 3.1 0.0 - 3.5 % [facility] PROJECT DEVELOPMENT ENGINE[facility] Basophils % 0.6 0.0 - 1.0 % [facility] PROJECT DEVELOPMENT ENGINE[facility] Absolute Neutrophils 6.9(H) 1.4 - 6.6 10*3/uL CANCER PROJECT DEVELOPMENT ENGINEER [facility] Absolute Lymphocytes 1.4 0.8 - 4.0 10*3/uL CANCER PROJECT DEVELOPMENT ENGINEER [facility] Absolute Monocytes 0.5 0.2 - 1.2 10*3/uL CANCER PROJECT DEVELOPMENT ENGINEER [facility] Absolute Eosinophils 0.3 0.0 - 0.4 10*3/uL CANCER PROJECT DEVELOPMENT ENGINEER [facility] Absolute Basophils 0.1 0.0 - 0.1 10*3/uL CANC[facility] PROJECT DEVELOPMENT ENGINEER [facility] 05/10/2024 9:50 AM BUSINESS UNIT MANAGER us Elfego Vasques MD LAB SEND OUTS Final Result [facility] PROJECT DEVELOPMENT ENGINEER [facility] [place] [address], * (ABNORMAL) LACTATE DEHYDROGENASE (LD) (05/10/2024 9:50 AM BUSINESS UNIT MANAGER) LDH 139(L) 140 - 271 U/L [facility] PROJECT DEVELOPMENT ENGINE[facility] Blood 05/10/2024 9:50 AM BUSINESS UNIT MANAGER Narrative [facility] PROJECT DEVELOPMENT ENGINE[facility] - 05/10/2024 10:47 AM BUSINESS UNIT MANAGER Release to patient->Immediate Elfego Vasques MD CHEMISTRY ORDERABLES Final R esult [facility] PROJECT DEVELOPMENT ENGINEER [facility] [place] [address], * (ABNORMAL) CMP (COMPREHENSIVE METABOLIC PANEL) (05/10/2024 9:50 AM BUSINESS UNIT MANAGER) Glucose 111(H) 70 - 105 mg/dL [facility] Blood Urea Nitrogen 5(L) 7 - 25 mg/dL [facility] Creatinine 0.7 0.6 - 1.2 mg/dL [facility] Sodium 139 136 - 145 mEq/L [facility] Potassium 3.1(L) 3.5 - 5.1 mEq/L [facility] Chloride 102 98 - 107 mEq/L [facility] Bicarbonate 27 21 - 31 mEq/L [facility] Total Bilirubin 0.5 0.3 - 1.0 mg/dL [facility] Alk. Phosphatase 109(H) 34 - 104 U/L [facility] Aspartate Aminotransferase 11(L) 13 - 39 U/L [facility] Alanine Aminotransferase 10 7 - 52 U/L [facility] Total Protein 6.8 6.4 - 8.9 g/dL [facility] Albumin 4.0 3.5 - 5.7 g/dL [facility] Calcium 9.0 8.6 - 10.3 mg/dL [facility] Anion Gap 13.1 7.0 - 15.0 mEq/L [facility] Globulin 2.8 2.0 - 3.5 g/dL [facility] EGFR 92 >60 ml/min/1. 73m2 [facility] PROJECT DEVELOPMENT ENGINEER [facility] Comment: This eGFR is calculated using 2020 CKD-EPI Creatinine equation without race modifier based on the NKF-ASN task force recommendations Blood 05/10/2024 9:50 AM BUSINESS UNIT MANAGER Narrative [facility] PROJECT DEVELOPMENT ENGINE[facility] - 05/10/2024 10:47 AM BUSINESS UNIT MANAGER Release to patient->Immediate IS THE PATIENT REQUIRED TO BE FASTING FOR 8 HOURS?->No us Elfego Vasques MD CHEMISTRY ORDERABLES Final R esult [facility] PROJECT DEVELOPMENT ENGINEER [facility] [place] [address], * CT CHEST W/O CONTRAST (04/13/2024 10:23 AM BUSINESS UNIT MANAGER) Anatomical Region Laterality Modality Chest N/A Computed Tomogra phy Narrative 04/13/2024 10:33 AM BUSINESS UNIT MANAGER EXAMINATION: CT CHEST W/O CONTRAST N/A INDICATIONS: [...] PER FDA AND SA REQUIREMENTS. Little Marks MATH TUTOR, FORENSIC CHEMIST IMG MAMMO ORDERABLES Final Result from Last 3 Months or Most Recently Relevant to Health Maintenance Insurance [facility] MEDICARE C [employer] Care Teams Purification Operator Relationship Specialty Start Date End Date Chris Kilgore MD [address] [place] [address] [place] [address] PCP - General Internal Medicine 07/27/20 Kwasi Appiah MD [address] [place] [address] Consulting Physician Pulmonary Disease 12/10/16 Agustin Brody MD [address] [place] [address] Consulting Physician Oncology 07/27/20
--- OUTSIDE RECORDS SUMMARY | 2024-06-16 13:37 | XMS_ITS | Encounter Summary ---
Author Organization [employer] Address [address] [place] [address] Care Team Providers Care Sales Executive Insurance Name Role Phone Unavailable Primary Care Provider Unavailabl e Encounter Details Date Type Department Care Team (Late st Contact Info) Description 09/30/2003 Outpatient Historical [facility] Internal Medicine [address] [place] [address] Markell Nguyễn MD [address] [facility] [address] [place] [address] Social History Tobacco Use Types Packs/Day Years Used Date Smoking Tobacco: Never Assessed Comments Unknown Sex and Gender Information Value Date Recorded Sex Assigned at Not on file Legal Sex Female 4:08 AM ORDNANCE OFFICER Gender Identity Not on file Sexual Orientation Not on file documented as of this encounter Plan of Treatment Not on file documented as of this encounter Visit Diagnoses Not on filedocumented in this encounter
--- OUTSIDE RECORDS SUMMARY | 2024-06-16 13:37 | XMS_ITS | Encounter Summary ---
Author Organization [facility] Address [address] [place] [address] Phone Care Team Providers Care Public Health Aide Name Role Phone Chris Kilgore MD Primary Care Provider [phone] Kwasi Appiah MD Unavailable Agustin Brody MD Unavailable [phone] Reason for Visit * Reason Comments Medication Refill Encounter Details Date Type Department Care Team (Late st Contact Info) Description 06/11/2022 Refill [facility] [address] [place] [address] Agustin Brody MD [address] [place] [address] Medication Refill Social History Tobacco [...] on file Legal Sex Female 4:03 AM PRIVATE PILOT Gender Identity Not on file Sexual Orientation Not on file Occupation Industry Job Start Date Job End Date retired Not on file Not on file Not on file documented as of this encounter Miscellaneous Notes * Telephone Encounter - Agustin Brody MD - 06/12/2022 11:28 AM PRIVATE PILOT No us ATE PILOT * Telephone Encounter - Sonya Shine, RN - 06/12/2022 8:28 AM PRIVATE PILOT Refill request from pharmacy. Please fill if appropriate. ATE PILOT documented in this encounter Plan of Treatment Upcoming Encounters Date Type Department Care Team (Late st Contact Info) Description 07/19/2024 10:00 AM CDT Ancillary Procedure [facility] [address] [phone] 07/19/2024 10:30 AM CDT Office Visit [facility] [address] [phone] Agustin Brody MD [address] [place] [phone] 04/26/2025 10:00 AM PRIVATE PILOT Ancillary Procedure [facility] [address] [phone] documented as of this encounter Visit Diagnoses Diagnosis Malignant neoplasm of lower lobe, left bronchus or lung (HCC) documented in this encounter Additional Health Concerns Assessment Noted Time PHQ-9 Depression Total Score: 0 01/18/20 9:59 AM CDT documented as of this encounter Care Teams Public Health Aide Relationship Specialty Start Date End Date Chris Kilgore MD [address] [place] [address] PCP - General Internal Medicine 07/27/20 Kwasi Appiah MD [address] [place] [address] Consulting Physician Pulmonary Disease 12/10/16 Agustin Brody MD [address] [place] [address] Consulting Physician Oncology 07/27/20 documented as of this encounter
--- OUTSIDE RECORDS SUMMARY | 2024-06-16 13:37 | XMS_ITS | Clinical Summary ---
Author Organization [employer] [facility] Address [address] [place]ile: Epic Prelude ADT [place] [address] Care Team Providers Care Scan Coordinator Name Role Phone Unavailable Primary Care Provider Unavailabl e Social History Tobacco Use Types Packs/Day Years Used Date Smoking Tobacco: Never Assessed Comments Unknown Sex and Gender Information Value Date Recorded Sex Assigned at Not on file Legal Sex Female 4:08 AM MUFF WINDER Gender Identity Not on file Sexual Orientation [...]
--- OUTSIDE RECORDS SUMMARY | 2024-06-16 13:37 | XMS_ITS | Encounter Summary ---
Author Organization [facility] Address [address] [place] [address] Phone Care Team Providers Care Reception Manager Name Role Phone Chris Kilgore MD Primary Care Provider [phone] Kwasi Appiah MD Unavailable Agustin Brody MD Unavailable [phone] Reason for Visit * Reason Comments Medication Refill Encounter Details Date Type Department Care Team (Late st Contact Info) Description 07/01/2022 Refill [facility] [address] [place] [address] Agustin Brody MD [address] [place] [address] Medication Refill Social History Tobacco [...] on file Legal Sex Female 4:03 AM PRODUCTION LINE WELDER Gender Identity Not on file Sexual Orientation [...] CDT Ancillary Procedure [facility] [address] [phone] 07/19/2024 10:30 AM CDT Office Visit [facility] [address] [phone] Agustin Brody MD [address] [place] [phone] 04/26/2025 10:00 AM PRODUCTION LINE WELDER Ancillary Procedure [facility] [address] [phone] documented as of this encounter Visit Diagnoses Not on filedocumented in this encounter Additional Health Concerns Assessment Noted Time PHQ-9 Depression Total Score: 0 01/18/20 9:59 AM CDT documented as of this encounter Care Teams Reception Manager Relationship Specialty Start Date End Date Chris Kilgore MD [address] [place] [address] PCP - General Internal Medicine 07/27/20 Kwasi Appiah MD [address] [place] [address] Consulting Physician Pulmonary Disease 12/10/16 Agustin Brody MD [facility] [place] [address] Consulting Physician Oncology 07/27/20 documented as of this encounter
--- OUTSIDE RECORDS SUMMARY | 2024-06-16 13:37 | XMS_ITS | Encounter Summary ---
Author Organization [facility] Address [address] [place] [address] Phone Care Team Providers Care Medical Imaging Director Name Role Phone Chris Kilgore MD Primary Care Provider Farhan Varner MD Unavailable [phone] APRN, DECK ENGINE OPERATOR Unavailable Kwasi Appiah MD Unavailable Agustin Brody MD Unavailable Reason for Visit * Reason Comments Medication Refill Encounter Details Date Type Department Care Team (Late st Contact Info) Description 11/21/2020 Refill [facility] [place] [address] [place] [address] Agustin Brody MD [address] [place] [address] Medication Refill Social History Tobacco [...] on file 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 Gender Identity Not on file Sexual [...] CDT Ancillary Procedure [facility] [address] [phone] 07/19/2024 10:30 AM CDT Office Visit [facility] [address] [phone] Agustin Brody MD [address] [place] [phone] 04/26/2025 10:00 AM SCALE MANAGER Ancillary Procedure [facility] [address] [phone] documented as of this encounter Visit Diagnoses Diagnosis Small cell lung cancer (HCC) Malignant neoplasm of bronchus and lung, unspecified site documented in this encounter Additional Health Concerns Assessment Noted Time PHQ-9 Depression Total Score: 0 11/21/19 8:35 AM CDT documented as of this encounter Care Teams Medical Imaging Director Relationship Specialty Start Date End Date Chris Kilgore MD [address] [address] PCP - General Internal Medicine 07/27/20 [place] [address] [place] [address] [place] [address] Family Medicine 07/27/20 07/02/21 Little Marks, VENTILATION EQUIPMENT TENDER, DECK ENGINE OPERATOR [address] [place] [address] [place] [address] Nurse Practitioner Certified Nurse Practitioner 09/08/12 07/02/21 Kwasi Appiah MD [address] [place] [address] Consulting Physician Pulmonary Disease 12/10/16 Agustin Brody MD [address] [place] [address] Consulting Physician Oncology 07/27/20 documented as of this encounter
--- OUTSIDE RECORDS SUMMARY | 2024-06-16 13:37 | XMS_ITS | Encounter Summary ---
Author Organization [employer] Address [address] [place] [address] Care Team Providers Care Whipped Topping Finisher Name Role Phone Unavailable Primary Care Provider Unavailabl e Encounter Details Date Type Department Care Team (Late st Contact Info) Description 08/03/2004 Outpatient Historical [facility] Internal Medicine 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
--- OUTSIDE RECORDS SUMMARY | 2024-06-16 13:37 | XMS_ITS | Encounter Summary ---
Author Organization [facility] Address [address] [place] [address] Phone Care Team Providers Care Headstart Teacher Name Role Phone Chris Kilgore MD Primary Care Provider Farhan Varner MD Unavailable [phone] [address] Marks APRN, HIGHWAY TRAFFIC CONTROL TECHNICIAN Unavailable [phone] Kwasi Appiah MD Unavailable Agustin Brody MD Unavailable Reason for Visit * Reason Comments Medication Refill Encounter Details Date Type Department Care Team (Late st Contact Info) Description 11/21/2020 Refill [facility] [address] [phone] Carolyn Rodrigues, PAC Medication Refill Social History [...] on file 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 Gender Identity Not on file Sexual [...] CDT Ancillary Procedure [facility] [address] [phone] 07/19/2024 10:30 AM CDT Office Visit [facility] [address] [phone] Agustin Brody MD [address] [place] [phone] 04/26/2025 10:00 AM METALLURGICAL ENGINEERING TEACHER Ancillary Procedure [facility] [address] [phone] documented as of this encounter Visit Diagnoses Not on filedocumented in this encounter Additional Health Concerns Assessment Noted Time PHQ-9 Depression Total Score: 0 11/21/19 21 8:35 AM CDT documented as of this encounter Care Teams Headstart Teacher Relationship Specialty Start Date End Date Chris Kilgore MD [address] [place] [address] PCP - General Internal Medicine 07/27/20 [place] [address] [place] [address] [place] [address] Family Medicine 07/27/20 07/02/21 Little Marks, PRESCHOOL ASSISTANT, HIGHWAY TRAFFIC CONTROL TECHNICIAN [address] [place] [address] Nurse Practitioner Certified Nurse Practitioner 09/08/12 07/02/21 Kwasi Appiah MD [address] [place] [address] Consulting Physician Pulmonary Disease 12/10/16 Agustin Brody MD [address] [place] [address] Consulting Physician Oncology 07/27/20 documented as of this encounter
[2024-06-16 14:09] LABS: Alanine Aminotransferase 13 U/L (6-35); Albumin Level 3.9 g/dL (3.5-5.1); Alkaline Phosphatase 113 U/L (38-126); Anion Gap 7 mmol/L (4-12); Aspartate Amino Transferase 24 U/L (14-36); Bilirubin,Total 0.6 mg/dL (0.2-1.3); Blood Urea Nitrogen 10 mg/dL (7-17); Calcium 8.9 mg/dL (8.4-10.2); Carbon Dioxide 28 mmol/L (22-30); Chloride 105 mmol/L (98-107); Estimated CRCL calculation 57 ml/min; Estimated Glomerular Filt Rate > 60; Glucose 102 mg/dL (65-110); Potassium 4.3 mmol/L (3.4-5.0); Sodium 140 mmol/L (137-145)
[2024-06-16 14:19] LABS: Troponin I < 0.012 ng/mL (0.000-0.034)
[2024-06-16 15:01] LABS: Lipase 54 U/L (23-300)
--- NOTE | 2024-06-16 15:18 | ECG_ITS ---
Test Date: 2024-06-16 15:30:57 Measurements Intervals [place] Rate: 71 P: 34 MS: 140 QRS: 91 QRSD: 82 T: 81 QT: 385 QTc: 420 Interpretive Statements SINUS RHYTHM BORDERLINE RIGHT AXIS DEVIATION [QRS AXIS > 90] Compared to ECG 06/16/2024 11:07:20 ST (T wave) deviation no longer present Electronically Signed On 06-17-2024 13:55:58 CDT by Chuck Mendoza M.D.
[2024-06-16 15:51] LABS: Troponin I < 0.012 ng/mL (0.000-0.034)
== END 2024-06-16 16:00 | disposition home or self-care (01) ==
PROVIDERS: Emergency Medicine; Emergency Provider Physician Assistant
DX: R07.89 Other chest pain (principal); J44.9 Chronic obstructive pulmonary disease, unspecified; R94.31 Abnormal electrocardiogram [ECG] [EKG]
CPT/HCPCS: 36415; 71046; 80053; 83690; 84484; 85025; 85610; 85730; 93005; 99284; A9270